=== PATIENT | male | born 1945 | race Caucasian/White ===

== ENCOUNTER → 2018-07-06 | Day surgery (SDC) | payer MEDICARE ==
[2018-06-29 14:36] VITALS: BMI 27.6
[~2018-07-06] MED LIST: ASPIRIN 325 MG TAB PO ONE; HYDROCHLOROTHIAZIDE 12.5 MG CAP PO SCH; IOPAMIDOL-250 100ML BTL INTRAARTER ONE; LIDOCAINE 1% INJ 10MG/ML (20 ML MDV) SQ ONE; LISINOPRIL 20 MG TAB PO STA; MIDAZOLAM 2 MG/2 ML VIAL IVP ONE; SODIUM CHLORIDE 0.9% 1,000 ML IV ONE; SODIUM CHLORIDE 0.9% 1,000 ML IV SCH; amLODIPine 5 MG TAB PO STA
[2018-07-06 06:57] LABS: Basophils # (A) 0.1 k/uL (0-0.2); Basophils % (A) 1 %; Eosinophils # (A) 0.3 k/uL (0-0.7); Eosinophils % (A) 3 %; HCT 43.6 % (39.0-53.0); HGB 14.1 gm/dL (13.0-17.5); Lymphocytes # (A) 1.5 k/uL (1.0-4.8); Lymphocytes % (A) 19 %; MCH 29.8 pg (25.0-35.0); MCHC 32.4 g/dL (31.0-37.0); Mean Platelet Volume 9.4; Monocytes # (A) 0.7 k/uL (0-1.0); Monocytes % (A) 8 %; Neutrophils # (A) 5.4 k/uL (1.3-7.7); Neutrophils % (A) 67 %; Platelet Count 188 k/uL (150-450); RBC 4.73 m/uL (4.30-5.90)
[2018-07-06 07:08] LABS: Glucose,Whole Blood 92 mg/dL (75-99)
[2018-07-06 07:18] LABS: Calcium 9.8 mg/dL (8.4-10.2); Potassium 4.4 mmol/L (3.5-5.1)
[2018-07-06 07:21] VITALS: RESP 18; TEMP 97.9
--- NOTE | 2018-07-06 09:05 | LTR ---
DATE OF SERVICE: 07/06/2018 RE: Addison Reyes Dear Dr. Roach; Mr. Addison Reyes underwent an abdominal aortogram and bilateral lower extremity runoff and that revealed severe disease involving the left iliac artery and severe disease involving bilateral femoral arteries. He will be scheduled to undergo a TRAINING ENGINEER of the left iliac and bilateral femoral in the next few weeks. I want to thank you for allowing us to participate in his care and please do not hesitate to call if you have any question or concern. Sincerely, MD MARCO Gomez / ADENIKE: [id number] /
--- NOTE | 2018-07-06 09:23 | AN ---
ANGIOGRAPHY REPORT DATE OF SERVICE: 07/06/2018 PERFORMING PHYSICIAN: Elier Tanner MD. PROCEDURE PERFORMED: 1. An abdominal aortogram. 2. Bilateral lower extremity runoff. 3. Gradient measurement across the left iliac artery. INDICATION: This is a very pleasant 72-year-old gentleman with known history of peripheral arterial disease where he underwent in [place] a fem-fem bypass with what seems to be also bilateral femoral endarterectomy. Lately, he has been experiencing bilateral lower extremities intermittent claudication. The symptoms seem to be severe enough and interfering with his daily activities. He underwent an ankle brachial index and that came in to be 0.66 on the right and 0.68 on the left. Because of that and because of the symptomatic state, an abdominal aortogram and bilateral lower extremity runoff was recommended. APPROACH: Left common femoral artery. COMPLICATION: None. LEVEL OF SEDATION: Moderate with sedation length of 19 minutes. PROCEDURE DESCRIPTION: After obtaining an informed consent, the patient was brought to the cardiac laboratory geneticist. The left common femoral artery was cannulated using micropuncture technique, the micropuncture wire passed easily then I placed a 6-Kosovan sheath in the left common femoral artery history I placed a 4-Kosovan sheath in the left common femoral artery. After that, I did an abdominal aortogram and bilateral lower extremities runoff using 5- Kosovan pigtail catheter which was initially placed at the level of the renal arteries. then it was pulled into above the bifurcation of the aorta to right and left common iliac arteries. After that, I did perform a gradient measurement across the lesion in the left external iliac/left common iliac artery. The procedure was completed without any complication. SELECTIVE PERIPHERAL ANGIOGRAM: 1. The aorta seems to be calcified with mild to moderate diffuse disease distally. It bifurcates into right and left common iliac arteries. 2. Common iliac arteries: The right common iliac artery is occluded. The left common iliac artery appeared to be stented with intermediate to severe in-stent restenosis. I did a gradient measurement across that area and that came into be about 50 mm Hg. 3. External iliac arteries: The right and left external iliac arteries are patent. 4. Common femoral arteries: The right and left common femoral arteries seems to be patent with probably patch angioplasty was performed in the past. There was a fem- fem bypass, which seems to be functioning normally. 5. The SFA: The right and left SFA are diffusely diseased. Both SFA are diseased and appeared to have a tight lesion in the midportion about 90%. 6. Below the knee: There are 3 vessels below the knee bilaterally. CONCLUSION: 1. 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 2. Patent fem-fem bypass. 3. Severe bilateral femoropopliteal disease with critical bilateral femoropopliteal disease. 4. Three-vessel runoff below the knee, bilaterally. POSTPROCEDURE MANAGEMENT: 1. I recommended proceeding with a SIGN MAKER to start with on the left SFA and at the same time proceeding with left iliac stenting. I would perform the SIGN MAKER of the left SFA from a medial approach and the left iliac stenting from an arm approach. 2. Subsequently. SIGN MAKER of the right SFA from a medial approach on separate session. MMODL / IJN: [id number] /
[2018-07-06 09:26] LABS: Glucose,Whole Blood 126 mg/dL (75-99)
--- NOTE | 2018-07-06 10:20 | IR ---
Fluoroscopy HISTORY: Leg pain, peripheral vascular occlusive disease 1.8 minutes fluoroscopy time supplied to the referring clinician. 164 intraoperative C-arm images do cument the procedure. See dictated report from cardiology.
[2018-07-06 13:32] VITALS: PULSE 70
[2018-07-06 14:03] VITALS: BP 124/62
== END ==
LOC: CATHCVL 05:45
PROVIDERS: ATTEND Internal Medicine Interventional Cardiology
DX: I70.713 Atherosclerosis of other type of bypass graft(s) of the extremities with intermittent claudication, bilateral legs (principal); T82.856A Stenosis of peripheral vascular stent, initial encounter; I10 Essential (primary) hypertension; E78.5 Hyperlipidemia, unspecified; E11.9 Type 2 diabetes mellitus without complications; Z87.891 Personal history of nicotine dependence; Z79.84 Long term (current) use of oral hypoglycemic drugs; Z79.02 Long term (current) use of antithrombotics/antiplatelets; Z79.899 Other long term (current) drug therapy
CPT/HCPCS: 36200; 75625; 75716; 80048; 85025; C1769 ×4; C1894; J2250; J2001; Q9966

== ENCOUNTER 2018-08-22 06:59 | Day surgery (SDC) | payer MEDICARE ==
[2018-08-17 13:27] VITALS: BMI 27.9
[2018-08-22] MEDS ORDERED: ASPIRIN 81 MG ONE (07:50)
[2018-08-22] MEDS ORDERED: SODIUM CHLORIDE 0.9% 1,000 ML IV ONE (08:04)
[2018-08-22 08:13] LABS: Glucose,Whole Blood 96 mg/dL (75-99)
[2018-08-22 08:37] LABS: HCT 43.4 % (39.0-53.0); HGB 14.8 gm/dL (13.0-17.5); MCH 30.8 pg (25.0-35.0); MCV 90.5 fL (80.0-100.0); Mean Platelet Volume 8.7; Platelet Count 180 k/uL (150-450); RBC 4.79 m/uL (4.30-5.90); RDW 13.5 % (11.5-15.5); WBC 6.7 k/uL (3.8-10.6)
[2018-08-22 08:48] LABS: Albumin 4.3 g/dL (3.5-5.0); Calcium 10.1 mg/dL (8.4-10.2); Potassium 4.6 mmol/L (3.5-5.1); Total Bilirubin 0.7 mg/dL (0.2-1.3); Total Protein 7.4 g/dL (6.3-8.2)
[2018-08-22] MEDS ORDERED: MIDAZOLAM 2 MG/2 ML VIAL IV ONE ×2 (09:48→10:40)
[2018-08-22] MEDS ORDERED: LIDOCAINE 1% INJ 10MG/ML (20 ML MDV) SQ ONE (10:00)
[2018-08-22] MEDS ORDERED: HEPARIN SODIUM 1,000 UN/ML (10ML VL) IV ONE (10:06)
[2018-08-22] MEDS ORDERED: fentaNYL (PF) 50 MCG/ML 2 ML AMP IV ONE (10:41)
[2018-08-22] MEDS ORDERED: niCARdipine Syringe (1,000 mcg/10 mL) INTRAARTER ONE (10:50)
[2018-08-22] MEDS ORDERED: NITROGLYCERIN 1000MCG/10ML SYRINGE INTRAARTER ONE (10:50)
[2018-08-22] MEDS ORDERED: SODIUM CHLORIDE 0.9% 1,000 ML IV SCH (11:45)
[2018-08-22] MEDS ORDERED: INSULIN LISPRO (For Pump) 100 UNIT/ML VIAL SQ-PUMP SCH (11:45)
[2018-08-22] MEDS ORDERED: IOPAMIDOL-250 100ML BTL INTRAARTER ONE (11:45)
[2018-08-22] MEDS ORDERED: CLOPIDOGREL 75 MG TAB PO ONE (11:50)
--- NOTE | 2018-08-22 12:02 | LTR ---
August 22, 2019 Re: Addison Fariasble Dear Dr. Roach: Mr. Addison Reyes underwent successful balloon angioplasty of the left common iliac artery with good angiographic results and without any complication. I want to thank you for allowing me to participate in his care and please do not hesitate to call if you have any question or any concern. Sincerely, MD MARCO Gomez / JOSE MARIAN: [id number] /
--- NOTE | 2018-08-22 12:17 | AN ---
ANGIOGRAPHY REPORT PERCUTANEOUS PERIPHERAL INTERVENTION: DATE OF SERVICE: August 22, 2018 PERFORMING PHYSICIAN: Elier Tanner MD, mule developer. PROCEDURE PERFORMED: 1. Selective left dpvcp-ych-glnj angiogram. 2. Selective left popliteal/SFA angiogram. 3. Selective left common iliac artery angiogram. 4. Gradient measurement across the left common iliac artery. 5. Atherectomy of the left SFA using the TurboHawk device. 6. Balloon angioplasty of the left SFA using 5 mm x 40 mm balloon. 7. Successful stenting of the left common iliac artery using Omnilink used using Omnilink balloon expandable stent which was 8 x 59 and 8 x 19 mm stents with good angiographic results. INDICATION: This is a pleasant 72-year-old gentleman who has known history of peripheral arterial disease and known to fem-fem bypass. He was experiencing bilateral lower extremities intermittent claudication and underwent a peripheral angiogram and that revealed severe disease involving the left common iliac artery with severe disease involving the left SFA. He was brought today to undergo an angioplasty of the left leg. APPROACH: Right brachial artery. COMPLICATION: None. LEVEL OF SEDATION: Moderate with sedation length of 96 minutes. PROCEDURE DESCRIPTION: After obtaining an informed consent, the patient was brought to cardiac clinical lab assistant. The right brachial artery was cannulated using micropuncture technique and a micropuncture wire passed easily then I placed an 11 cm 6-Tajik sheath in the right brachial artery. After that, anticoagulation was initiated using heparin and the patient was given 10,000 units of heparin IV. Subsequently, I did advance an 0.035 [place] Advantage wire to the left common iliac artery under fluoroscopy guidance. After that, I did exchange my 11 cm 6-Tajik sheath into 90 cm 6-Tajik sheath using 0.035 [place] Advantage wire. The tip of the sheath was advanced all the way to the proximal left SFA. After that, I did cross the left SFA and advanced the wire into the left popliteal using an 0.[address] wire. After that I did atherectomy using the TurboHawk device. I was unable to do atherectomy of the left popliteal, because the device did not reach all the way there. Subsequently I did balloon angioplasty using 5.0 x 40 mm balloon of the left popliteal and left SFA. The following angiogram showed good angiographic results of the left popliteal and inadequate results for the left SFA because of the recoiling. I did not do a stent because I was trying to bring the patient back to fix the right leg and I can fix the left leg to the fem-fem bypass as well. At that point, I decided to stop in term of fixing the left SFA and after that I did pull the sheath to the aorta. I did a selective left common iliac artery angiogram and I did after that gradient measurement across the left common iliac artery which came into be significant. After that, I did balloon angioplasty using 8 mm balloon before I deployed 2 balloon expandable stent. The first stent was 8 x 59 and the second stent was 8 x 19 mm. Both the stents were deployed under 14 atmospheres for about 1 minute. The following angiogram showed excellent angiographic results. The procedure was completed without any complication. After that, I did exchange my 90 cm sheath into 11 cm sheath using a 0.035 wire. The procedure was completed at that point without any complication. POSTPROCEDURE MANAGEMENT: 1. Dual anti-platelet therapy. 2. Risk factors modifications. 3. Follow up with the patient. MARCO / ADENIKE: [id number] /
[2018-08-22] MEDS ORDERED: HYDROmorphone 1 MG/ML 1 ML SYRINGE IVP PRN (13:25)
[2018-08-22] MEDS: GABAPENTIN 300 MG CAP PO SCH ×2 (15:19→19:53)
--- NOTE | 2018-08-22 15:59 | IR ---
Fluoroscopy HISTORY: Pain Left leg 23.7 minutes fluoroscopy time supplied to the referring clinician. 889 intraoperative C-arm images d ocument the procedure. See dictated report from cardiology.
[2018-08-22] MEDS ORDERED: ONDANSETRON 4 MG/2 ML VIAL IVP PRN (16:06)
[2018-08-22 16:36] LABS: Glucose,Whole Blood 133 mg/dL (75-99)
[2018-08-22 20:54] LABS: Glucose,Whole Blood 170 mg/dL (75-99)
[2018-08-22] MEDS ORDERED: ATORVASTATIN 40 MG TAB PO SCH (21:00)
[2018-08-22] MEDS ORDERED: LISINOPRIL-HCTZ 20-12.5 MG 1 EACH TAB PO SCH (21:00)
[2018-08-22] MEDS ORDERED: FINASTERIDE 5 MG TAB PO SCH (21:00)
[2018-08-23 06:43] LABS: Glucose,Whole Blood 142 mg/dL (75-99)
[2018-08-23 08:23] VITALS: BP 142/67; PULSE 79; RESP 18; TEMP 97.9
[2018-08-23] MEDS ORDERED: ASPIRIN 81 MG PO SCH (09:00)
[2018-08-23] MEDS ORDERED: CLOPIDOGREL 75 MG TAB PO SCH (09:00)
[2018-08-23] MEDS ORDERED: NON-FORMULARY DRUG (Empagliflozin [Jardiance] 25 MG) PO SCH (09:00)
[2018-08-23] MEDS ORDERED: amLODIPine 5 MG TAB PO SCH (09:00)
== END 2018-08-23 08:24 | disposition home or self-care (01) ==
LOC: CATHCVL 06:59 → 3SCARD 11:40 → CATHCVL 08-23 08:24
PROVIDERS: ATTEND Internal Medicine Interventional Cardiology
DX: I70.213 Atherosclerosis of native arteries of extremities with intermittent claudication, bilateral legs (principal); I10 Essential (primary) hypertension; E78.5 Hyperlipidemia, unspecified; Z87.891 Personal history of nicotine dependence; E11.9 Type 2 diabetes mellitus without complications; Z79.84 Long term (current) use of oral hypoglycemic drugs; Z79.02 Long term (current) use of antithrombotics/antiplatelets; Z79.899 Other long term (current) drug therapy
CPT/HCPCS: 37221; 37225; 85347; 80053; 82565; 85027; C1894 ×2; C1725 ×2; C1876; C1769 ×5; C1714; S0138; J2250; J2001; J3010; J1644; J1170; Q9966

== ENCOUNTER 2018-09-05 05:56 | Day surgery (SDC) | payer MEDICARE ==
--- NOTE | 2018-08-23 11:45 | DS ---
DISCHARGE SUMMARY DATE OF ADMISSION: August 22, 2018. DISCHARGE DATE: August 23, 2018 BRIEF HISTORY: This is a pleasant 72-year-old gentleman who was admitted to the hospital yesterday and underwent successful balloon angioplasty of the left SFA and left common iliac artery. The procedure was performed from the right brachial approach. He does have some bruises above the right brachial artery, but there was good pulse there. The patient is going to be discharged home on dual anti-platelet therapy and I will follow up with the patient in the office in a week. MMODL / IJN: [id number] /
[2018-08-31 16:31] VITALS: BMI 27.9
[2018-09-05] MEDS ORDERED: SODIUM CHLORIDE 0.9% 1,000 ML in EMPTY BAG 1 BAG IV ONE (06:23)
[2018-09-05] MEDS ORDERED: SODIUM CHLORIDE 0.9% 1,000 ML IV ONE (07:05)
[2018-09-05 07:13] LABS: Glucose,Whole Blood 88 mg/dL (75-99)
[2018-09-05] MEDS: MIDAZOLAM 2 MG/2 ML VIAL IV ONE ×2 (08:01→08:15)
[2018-09-05] MEDS ORDERED: LIDOCAINE 1% INJ 10MG/ML (20 ML MDV) SQ ONE (08:03)
[2018-09-05] MEDS: fentaNYL (PF) 50 MCG/ML 2 ML AMP IV ONE ×4 (08:21→09:46)
[2018-09-05] MEDS: HEPARIN SODIUM 1,000 UN/ML (10ML VL) IV ONE ×2 (08:23→09:03)
[2018-09-05] MEDS ORDERED: NITROGLYCERIN 1000MCG/10ML SYRINGE INTRAARTER ONE (09:32)
[2018-09-05] MEDS ORDERED: niCARdipine Syringe (1,000 mcg/10 mL) INTRAARTER ONE (09:32)
[2018-09-05] MEDS ORDERED: CLOPIDOGREL 75 MG TAB PO ONE (09:56)
[2018-09-05] MEDS ORDERED: IOPAMIDOL-250 100ML BTL INTRAARTER ONE (09:57)
[2018-09-05] MEDS ORDERED: INSULIN LISPRO (For Pump) 100 UNIT/ML VIAL SQ-PUMP SCH (10:15)
[2018-09-05] MEDS ORDERED: SODIUM CHLORIDE 0.9% 1,000 ML IV SCH (10:15)
[2018-09-05] MEDS ORDERED: ceFAZolin 1,000 MG in DEXTROSE/WATER 1 50ML.BAG IVPB STA (10:57)
--- NOTE | 2018-09-05 11:07 | LTR ---
September 05, 2018 Re: Addison Reyes Dear Joseph: Mr. Addison Reyes underwent successful stenting of the left iliac artery a few weeks ago and today he underwent successful balloon angioplasty of the right femoral artery. Both procedures went well with good angiographic results by the end and without any complication. Thank you again for allowing us with his care and please do not hesitate to call if you have any question or concern. Sincerely, MD MARCO Gomez / ADENIKE: [id number] /
--- NOTE | 2018-09-05 11:09 | AN ---
ANGIOGRAPHY REPORT DATE OF SERVICE: 09/05/2018. PERFORMING PHYSICIAN: Elier Tanner MD PROCEDURE PERFORMED: 1. Selective right smwvk-mgn-flos angiogram. 2. Selective right popliteal/SFA angiogram. 3. Selective fem-fem angiogram. 4. Atherectomy of the right SFA using the orbital atherectomy device from [employer]. 5. Successful balloon angioplasty of the right popliteal using 6 x 120 mm drug-coated balloon with good angiographic results and reduction of stenosis from 99% to 0%. 6. Successful stenting of the right SFA using the Zilver PTX drug-coated stent with good angiographic results as well. INDICATION: This is a pleasant 72-year-old gentleman with known history of peripheral arterial disease with a known fem-fem bypass. He was experiencing bilateral lower extremities intermittent claudication. He did undergo a peripheral angiogram and that showed severe disease involving the left iliac along with severe bilateral SFA disease. He underwent successful stenting of the left iliac with good angiographic results and was brought today to undergo intervention of the right SFA from a fem-fem bypass access. APPROACH: The fem-fem bypass. COMPLICATION: None. LEVEL OF SEDATION: Moderate with sedation length of 109 minutes. PROCEDURE DESCRIPTION: After obtaining an informed consent, the patient was brought to the cardiac slab inspector. The fem-fem bypass was cannulated using micropuncture technique under ultrasound guidance, the micropuncture wire passed easily, then I placed a 6-Egyptian sheath 11 cm in the fem-fem bypass and that sheath was directed toward the right side. After that, I did wire the right SFA using 0.035 [place] Advantage wire, where the wire was advanced all the way to the right popliteal. Subsequently, I did exchange my 11 cm 6-Egyptian sheath into 50 cm 6-Egyptian Raabe sheath using the 0.035 [place] Advantage wire and the tip of the sheath was positioned in the proximal right SFA. After that, I did selective right nuyey-esd-vktp angiogram which showed 3-vessel runoff below the knee as well as selective right popliteal and SFA angiogram which I found the severe disease involving the right popliteal and right SFA which was extremely calcified. After that, I did exchange my 0.035 [place] Advantage wire into 0.014 ViperWire preparing for orbital atherectomy. After that I did atherectomy of the right popliteal and right SFA using the orbital atherectomy device from [employer]. Then I did balloon angioplasty using 5 mm x 200 mm balloon where I ballooned the whole right popliteal and right SFA. Then I did balloon angioplasty of the right popliteal using 6 x 120 mm drug-coated balloon which was intact balloon where the balloon was positioned under fluoroscopy guidance and deployed under 8 atmospheres for 3 minutes with the following angiogram showing excellent angiographic results with reduction of stenosis from 99% to 0. For the right SFA, I did have an area of dissection in the proximal and mid and because of that, I decided to stent the whole segment. I did deploy in the mid SFA two Zilver drug-coated stents. The first one was 6 x 140 and the second one which was distal to that one was 6 x 80 mm. Then in the proximal right SFA, I did deploy 7 x 100 drug-coated stent again, which was Zilver PTX. After that, I did post dilate the 3 stents using 6 mm balloon. The following angiogram showed excellent angiographic results and no complication. After that, I did exchange my long sheath into 11 cm 6-Egyptian Brite Tip sheath over 0.035 [place] Advantage wire. The procedure was completed without any complication. POSTPROCEDURE MANAGEMENT: 1. Dual anti-platelet therapy. 2. Risk factor modifications. 3. INSURANCE CASE MANAGER of the left SFA if the patient continues to be symptomatic on the left side. MMODL / IJN: [id number] /
[2018-09-05] MEDS: HYDROmorphone 1 MG/ML 1 ML SYRINGE IVP PRN ×2 (12:24→15:55)
[2018-09-05 12:33] LABS: Glucose,Whole Blood 111 mg/dL (75-99)
[2018-09-05] MEDS ORDERED: hydrALAZINE HCL 20 MG/ML 1 ML VIAL IVP STA (12:38)
[2018-09-05] MEDS ORDERED: hydrALAZINE HCL 20 MG/ML 1 ML VIAL ONE (12:39)
[2018-09-05 15:08] LABS: Glucose,Whole Blood 117 mg/dL (75-99)
[2018-09-05] MEDS ORDERED: ONDANSETRON 4 MG/2 ML VIAL IVP PRN (15:58)
[2018-09-05] MEDS: GABAPENTIN 300 MG CAP PO SCH ×2 (17:29→20:38)
[2018-09-05] MEDS: LISINOPRIL 20 MG TAB PO SCH (20:38)
[2018-09-05] MEDS: FINASTERIDE 5 MG TAB PO SCH ×2 (20:38→20:41)
[2018-09-05] MEDS: HYDROCHLOROTHIAZIDE 12.5 MG CAP PO SCH (20:38)
[2018-09-05 20:42] LABS: Glucose,Whole Blood 272 mg/dL (75-99)
[2018-09-05] MEDS ORDERED: ATORVASTATIN 40 MG TAB PO SCH (21:00)
[2018-09-05] MEDS ORDERED: INSULIN PUMP BASAL RATES 1 EACH MISC MISCELLANE PRN (23:53)
[2018-09-05] MEDS ORDERED: INSULIN ASPART 100 UNIT/ML 1 ML 10 ML VIAL SQ PRN (23:53)
[2018-09-05] MEDS ORDERED: INSPUCOR MISCELLANE PRN (23:53)
[2018-09-06 00:07] LABS: Glucose,Whole Blood 245 mg/dL (75-99)
[2018-09-06 02:08] LABS: Glucose,Whole Blood 119 mg/dL (75-99)
[2018-09-06 05:40] LABS: Glucose,Whole Blood 204 mg/dL (75-99)
[2018-09-06 06:59] LABS: Basophils % (A) 0 %; Eosinophils # (A) 0.1 k/uL (0-0.7); Eosinophils % (A) 1 %; HGB 13.1 gm/dL (13.0-17.5); Lymphocytes % (A) 11 %; MCH 30.8 pg (25.0-35.0); MCHC 33.7 g/dL (31.0-37.0); MCV 91.3 fL (80.0-100.0); Mean Platelet Volume 7.8; Monocytes # (A) 0.8 k/uL (0-1.0); Monocytes % (A) 9 %; Neutrophils # (A) 7.1 k/uL (1.3-7.7); Neutrophils % (A) 77 %; Platelet Count 187 k/uL (150-450); RBC 4.28 m/uL (4.30-5.90); RDW 13.4 % (11.5-15.5); WBC 9.3 k/uL (3.8-10.6)
[2018-09-06 07:09] LABS: Calcium 9.3 mg/dL (8.4-10.2); Potassium 5.2 mmol/L (3.5-5.1)
[2018-09-06] MEDS ORDERED: INSULIN PUMP MEAL BOLUS 1 UNIT MISC MISCELLANE SCH (07:30)
[2018-09-06 07:57] VITALS: BP 97/48; PULSE 86; RESP 16; TEMP 98.2
[2018-09-06] MEDS: GABAPENTIN 300 MG CAP PO SCH (08:32)
[2018-09-06] MEDS: HYDROCHLOROTHIAZIDE 12.5 MG CAP PO SCH (08:34)
[2018-09-06] MEDS: LISINOPRIL 20 MG TAB PO SCH (08:34)
--- NOTE | 2018-09-06 08:38 | DS ---
DISCHARGE SUMMARY ADMISSION DATE: 09/05/2018 DISCHARGE DATE: 09/06/2018 BRIEF HISTORY: This is a pleasant 72-year-old gentleman who was admitted to the hospital and underwent successful balloon angioplasty of the right SFA from a fem-fem bypass approach. The patient is going today to be discharged home on dual anti-platelet therapy and I will follow up with him in a week in the office. The access site is soft and nontender and without any bruises. MMODL / JOSE MARIAN: [id number] /
[2018-09-06] MEDS ORDERED: Empagliflozin [Jardiance] 25 MG PO SCH (09:00)
[2018-09-06] MEDS ORDERED: amLODIPine 5 MG TAB PO SCH (09:00)
[2018-09-06] MEDS ORDERED: CLOPIDOGREL 75 MG TAB PO SCH (09:00)
[2018-09-06] MEDS ORDERED: ASPIRIN 81 MG PO SCH (09:00)
--- NOTE | 2018-09-06 10:25 | IR ---
Fluoroscopy HISTORY: Peripheral vascular occlusive disease 28.7 minutes fluoroscopy time supplied to the referring clinician. 949 intraoperative C-arm images d ocument the procedure. See dictated report from cardiology.
[2018-09-06 13:51] LABS: Hemoglobin A1C 7.8 % (4.0-6.0)
== END 2018-09-06 08:42 | disposition home or self-care (01) ==
LOC: CATHCVL 05:56 → 3SCARD 12:19 → CATHCVL 09-06 08:42
PROVIDERS: ATTEND Internal Medicine Interventional Cardiology
DX: I70.213 Atherosclerosis of native arteries of extremities with intermittent claudication, bilateral legs (principal); E13.51 Other specified diabetes mellitus with diabetic peripheral angiopathy without gangrene; Z79.84 Long term (current) use of oral hypoglycemic drugs; I10 Essential (primary) hypertension; E78.5 Hyperlipidemia, unspecified; Z95.820 Peripheral vascular angioplasty status with implants and grafts; Z87.891 Personal history of nicotine dependence; Z79.02 Long term (current) use of antithrombotics/antiplatelets; Z79.899 Other long term (current) drug therapy
CPT/HCPCS: 37227; 85347; 80048; 85025; 83036; C1894 ×3; C1714; C1769 ×5; C1725 ×2; C2623; C1874 ×3; J2250; J0360; J2405; J2001; J3010; J1644; J1170; J0690; Q9966

== ENCOUNTER 2018-11-05 06:03 | Day surgery (SDC) | payer MEDICARE, BC ==
[2018-11-01 12:24] VITALS: BMI 26.1
[~2018-11-05 06:03] MED LIST changes: +ALPRAZolam 0.25 MG TAB PO PRN; -ASPIRIN 325 MG TAB PO ONE; +ASPIRIN 325 MG TAB PO STA; -HYDROCHLOROTHIAZIDE 12.5 MG CAP PO SCH; -IOPAMIDOL-250 100ML BTL INTRAARTER ONE; -LIDOCAINE 1% INJ 10MG/ML (20 ML MDV) SQ ONE; -LISINOPRIL 20 MG TAB PO STA; -MIDAZOLAM 2 MG/2 ML VIAL IVP ONE; -SODIUM CHLORIDE 0.9% 1,000 ML IV ONE; -SODIUM CHLORIDE 0.9% 1,000 ML IV SCH; +SODIUM CHLORIDE 0.9% 1,000 ML in EMPTY BAG 1 BAG IV ONE; -amLODIPine 5 MG TAB PO STA
[2018-11-05 07:03] VITALS: PULSE 76; RESP 18; TEMP 97.9
[2018-11-05 07:05] LABS: Glucose,Whole Blood 113 mg/dL (75-99)
[2018-11-05] MEDS ORDERED: MIDAZOLAM 2 MG/2 ML VIAL IV ONE ×2 (07:29→07:48)
[2018-11-05] MEDS ORDERED: SODIUM CHLORIDE 0.9% 1,000 ML IV ONE (07:29)
[2018-11-05] MEDS ORDERED: LIDOCAINE 1% INJ 10MG/ML (20 ML MDV) SQ ONE (07:34)
[2018-11-05] MEDS: VERAPAMIL SYRINGE (5 MG/10 ML) INTRAARTER ONE ×2 (07:40→07:58)
[2018-11-05] MEDS: HYDROmorphone 2 MG/ML 1 ML SYRINGE IV ONE ×2 (07:52→07:57)
[2018-11-05] MEDS ORDERED: IOPAMIDOL-250 100ML BTL INTRAARTER ONE ×2 (07:58→07:59)
[2018-11-05] MEDS ORDERED: SODIUM CHLORIDE 0.9% 1,000 ML IV SCH (08:00)
--- NOTE | 2018-11-05 08:21 | AN ---
ANGIOGRAPHY REPORT PERIPHERAL ANGIOGRAM: DATE OF SERVICE: 11/05/2018 PERFORMING PHYSICIAN: Elier Tanner MD, Pumper Hand. PROCEDURE PERFORMED: 1. An abdominal aortogram. 2. Bilateral lower extremities runoff. INDICATION: This is a pleasant 73-year-old gentleman with known history of peripheral arterial disease who underwent in the past alyx-qa-gudzm fem-fem bypass and recently he underwent stenting of the left iliac artery as well as balloon angioplasty and stenting of the right SFA. He felt better after the last intervention, but started experiencing right leg intermittent claudication, seems to be severe enough. I did perform a Doppler in the office and that revealed an occluded right SFA. Because of that, he was brought today to undergo an abdominal aortogram and bilateral lower extremities runoff. APPROACH: Right radial artery. COMPLICATION: None. LEVEL OF SEDATION: Moderate with sedation length of 27 minutes. PROCEDURE DESCRIPTION: After obtaining an informed consent, the patient was brought to the cardiac dentures lab technician. The right radial artery was cannulated using micropuncture technique, the micropuncture wire passed easily, then I placed a 5-Setswana sheath in the right radial artery. Subsequently, I gave the patient 2 mg of verapamil IA. By the end of the procedure, he was given 8000 units of heparin IV. I did an abdominal aortogram and bilateral lower extremities runoff using a 4-Setswana pigtail catheter which was initially placed at the level of the renal arteries and it was advanced into the bifurcation of the aorta to right and left common iliac arteries. The procedure was completed without any complication. SELECTIVE PERIPHERAL ANGIOGRAM: 1. The aorta appeared to have mild disease only. 2. COMMON ILIAC ARTERIES: The right common iliac artery is occluded and the left common iliac artery is stented and the stent is patent. 3. EXTERNAL ILIAC ARTERIES: The right external iliac artery is occluded, left external iliac artery is patent. 4. COMMON FEMORAL ARTERY: The right common femoral artery and left common femoral artery appeared to be normal. There is a fem-fem bypass was identified. 5. PROFUNDA: The right and left profunda are patent. 6. SFA: The right SFA appeared to be occluded in the short segment in the distal portion, which seems to be in-stent occlusion. The left SFA is diffusely diseased up to about 70% to 80%. 7. POPLITEAL: The right and left popliteal appeared to have mild to moderate diffuse disease. 8. BELOW THE KNEE: There are 3-vessel runoff below the knee bilaterally. CONCLUSION: 1. Patent stent in the left common iliac artery. 2. In-stent occlusion of the right SFA on short segment. 3. Diffuse disease involving the left SFA up to about 70%. POSTPROCEDURE MANAGEMENT: 1. Maximize medical treatment at this point of time. 2. HR CONSULTANT of the right SFA to be done in the next few days. MMODL / IJN: [id number] /
[2018-11-05 08:31] LABS: Glucose,Whole Blood 113 mg/dL (75-99)
--- NOTE | 2018-11-05 08:35 | IR ---
EXAMINATION TYPE: IR angio abdominal w runoff DATE OF EXAM: 11/05/2018 CLINICAL HISTORY: Right leg pain. TECHNIQUE: Fluoroscopy. COMPARISON: None. FINDINGS: Fluoroscopic guidance was provided during abdominal angiogram with runoff procedure perfor med by Dr. Tanner. A total of 3.9 minutes of fluoroscopic time was utilized during the procedure and 0 spot images are saved to PACS system at time of dictation. IMPRESSION: As Above.
[2018-11-05] MEDS ORDERED: amLODIPine 5 MG TAB PO STA (08:46)
[2018-11-05] MEDS ORDERED: ONDANSETRON 4 MG/2 ML VIAL IVP STA (10:56)
[2018-11-05 14:50] VITALS: BP 156/70
== END 2018-11-05 13:15 | disposition home or self-care (01) ==
LOC: CATHCVL 06:03
PROVIDERS: ATTEND Internal Medicine Interventional Cardiology
DX: I70.213 Atherosclerosis of native arteries of extremities with intermittent claudication, bilateral legs (principal); E11.51 Type 2 diabetes mellitus with diabetic peripheral angiopathy without gangrene; T82.856A Stenosis of peripheral vascular stent, initial encounter; I10 Essential (primary) hypertension; E78.5 Hyperlipidemia, unspecified; F17.200 Nicotine dependence, unspecified, uncomplicated; Z95.820 Peripheral vascular angioplasty status with implants and grafts; Z79.84 Long term (current) use of oral hypoglycemic drugs; Z79.02 Long term (current) use of antithrombotics/antiplatelets; Z79.899 Other long term (current) drug therapy
CPT/HCPCS: 36200; 75625; 75716; C1769 ×5; C1894 ×2; J2250; J1170; J2405; J2001; J1644; Q9966

== ENCOUNTER 2018-11-09 05:59 | Day surgery (SDC) | payer MEDICARE, BC ==
[2018-11-09] MEDS ORDERED: SODIUM CHLORIDE 0.9% 1,000 ML in EMPTY BAG 1 BAG IV ONE (06:27)
[2018-11-09] MEDS ORDERED: ALPRAZolam 0.25 MG TAB PO PRN (06:27)
[2018-11-09] MEDS ORDERED: ASPIRIN 325 MG TAB PO ONE (07:00)
[2018-11-09 07:07] LABS: Glucose,Whole Blood 175 mg/dL (75-99)
[2018-11-09 07:10] LABS: Basophils # (A) 0.1 k/uL (0-0.2); Basophils % (A) 1 %; Eosinophils # (A) 0.2 k/uL (0-0.7); Eosinophils % (A) 3 %; HCT 44.5 % (39.0-53.0); HGB 14.3 gm/dL (13.0-17.5); Lymphocytes # (A) 1.4 k/uL (1.0-4.8); Lymphocytes % (A) 19 %; MCHC 32.2 g/dL (31.0-37.0); Mean Platelet Volume 8.7; Monocytes # (A) 0.6 k/uL (0-1.0); Monocytes % (A) 8 %; Neutrophils # (A) 4.8 k/uL (1.3-7.7); Neutrophils % (A) 67 %; Platelet Count 188 k/uL (150-450); RBC 4.94 m/uL (4.30-5.90); RDW 14.5 % (11.5-15.5); WBC 7.1 k/uL (3.8-10.6)
[2018-11-09 07:24] LABS: Calcium 9.7 mg/dL (8.4-10.2)
[2018-11-09 07:32] LABS: Potassium 5.8 mmol/L (3.5-5.1)
[2018-11-09] MEDS ORDERED: MIDAZOLAM 2 MG/2 ML VIAL IVP ONE (07:47)
[2018-11-09] MEDS ORDERED: LIDOCAINE 1% INJ 10MG/ML (20 ML MDV) SQ ONE ×2 (08:04→08:05)
[2018-11-09] MEDS: MIDAZOLAM 2 MG/2 ML VIAL IVP ONE ×2 (08:04→08:35)
[2018-11-09] MEDS: fentaNYL (PF) 50 MCG/ML 2 ML AMP IV ONE ×2 (08:04→08:58)
[2018-11-09] MEDS ORDERED: HEPARIN SODIUM 1,000 UN/ML (10ML VL) IV ONE ×2 (08:11→09:46)
[2018-11-09] MEDS ORDERED: CLOPIDOGREL 75 MG TAB PO ONE (09:52)
[2018-11-09] MEDS ORDERED: niCARdipine Syringe (1,000 mcg/10 mL) INTRAARTER ONE (09:56)
[2018-11-09] MEDS ORDERED: NITROGLYCERIN 1000MCG/10ML SYRINGE INTRAARTER ONE (09:56)
[2018-11-09] MEDS ORDERED: IOPAMIDOL-250 100ML BTL INTRAARTER ONE (10:10)
--- NOTE | 2018-11-09 11:10 | LTR ---
DATE OF SERVICE: 11/09/2018 RE: Addison Reyes Dear Dr. Roach; Mr. Addison Reyes underwent successful balloon angioplasty of the right femoral artery with good angiographic results and without any complication. I want to thank you for allowing me to participate in his care and please do not hesitate to call if you have any question or concern. Sincerely, Elier Tanner MD MMOSMIN / JOSE MARIAN: [id number] /
--- NOTE | 2018-11-09 12:07 | IR ---
EXAMINATION TYPE: IR stent intravas non coronary DATE OF EXAM: 11/09/2018 CLINICAL HISTORY: Peripheral vascular disease, arterial stenosis per order. TECHNIQUE: Fluoroscopy. COMPARISON: None. FINDINGS: Fluoroscopic guidance was provided during lower extremity angiogram with angioplasty proce dure performed by Dr. Tanner. A total of 30.8 minutes of fluoroscopic time was utilized during the pro cedure and 17 cine runs were acquired. Please refer to procedure note for further details as I was no t present nor performed procedure. IMPRESSION: As Above.
[2018-11-09] MEDS: HYDROmorphone 1 MG/ML 1 ML SYRINGE IVP PRN (13:33)
--- NOTE | 2018-11-09 17:04 | AN ---
ANGIOGRAPHY REPORT PERFORMING PHYSICIAN: Elier Tanner MD, public relations player. PROCEDURE PERFORMED: 1. Selective right xhoxa-wuk-wxra angiogram. 2. Selective right popliteal/SFA angiogram. 3. 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 4. Intravascular ultrasound IVUS of the right SFA and right popliteal. 5. An atherectomy of the right SFA and right popliteal using the orbital atherectomy device from [employer]. 6. Successful balloon angioplasty of the right popliteal using 5.0 X 18 mm drug-coated balloon with good angiographic results. 7. Successful stenting of the right SFA using a 7 x 80 mm Zilver PTX drug-coated stent with an excellent angiographic results. INDICATION: This is a pleasant 73-year-old gentleman with a history of peripheral arterial disease with prior stenting of the right iliac artery as well as known fem-fem bypass as well as balloon angioplasty of the left SFA who underwent recently an atherectomy and balloon angioplasty and stenting of the right SFA started experiencing right leg intermittent claudication again. He underwent an arterial duplex study in the office and that showed an occluded right SFA. Subsequently, he underwent an angiogram and that confirmed the occlusion of the right SFA, which seems to be in-stent occlusion. He was brought today to undergo a SCRAP WHEELER of the right SFA. APPROACH: Through the fem-fem bypass. COMPLICATION: None. LEVEL OF SEDATION: Moderate with sedation length of 2 hours and 3 minutes. PROCEDURE DESCRIPTION: After obtaining an informed consent, the patient was brought to the cardiac cath lab radiological technologist. The fem-fem bypass was cannulated using micropuncture technique under ultrasound guidance, the micropuncture wire passed easily. Then I placed a 55 cm 6-Taiwanese sheath in the fem-fem bypass and the sheath was directed to the right SFA. Subsequently, I started anticoagulation using heparin, where the patient initially given 8000 units of heparin at the beginning of the procedure and 3000 units throughout the procedure with continuous ACT monitoring throughout the procedure. After that, I did selective right nagfm-qtc-isoi angiogram, selective right popliteal and right SFA angiogram. The selective right dulvu-odp-like angiogram showed 3 vessel runoff below the knee. The selective right popliteal and right SFA showed severe disease involving the right popliteal and occluded right SFA which is in-stent occlusion. After that I was able to cross the chronic total occlusion of the right SFA using an 0.[address] wire, but I think I was behind the stent and because of that, I left the wire in place and I crossed the PAINTER SET again using .035 stiff Glidewire. The wire was advanced to the uvbdo-bji-ihlf on the right side. After that, I did exchange my .035 stiff Glidewire into 0.014 ViperWire using .035 CXI catheter. I did atherectomy of the right SFA and right popliteal using the orbital atherectomy device from [facility]. Subsequently, I did balloon angioplasty using 4-0 mm balloon and then 5-0 mm balloon. After that for the right popliteal, I did do balloon angioplasty using drug coated balloon which x 18 mm balloon which was inflated under 8 atmospheres for 3 minutes. For the right SFA, I decided to stent the area because it was a hazy and with possible clot there, so I did deploy a 7 x 18 mm Zilver PTX drug-coated stent where the stent was positioned under fluoroscopy guidance and deployed under fluoroscopy guidance. I post dilated the stent using 6 mm balloon. The final angiogram showed good result with good flow. There was an area at the right popliteal just above the knee seems to be with a plaque burden about 50%. I decided to leave that alone and do balloon angioplasty and stenting on it if we have to down the line. After that, I did exchange my long sheath into short sheath using a 035 stiff Glidewire. The procedure was completed without any complication. POSTPROCEDURE MANAGEMENT: 1. Dual anti-platelet therapy. 2. Risk factor modifications. 3. Doppler. 4. Follow up with the patient. MMODL / IJN: [id number] /
[2018-11-09 17:25] VITALS: BMI 27.5
[2018-11-09] MEDS: INSULIN LISPRO (For Pump) 100 UNIT/ML VIAL SQ-PUMP SCH (19:09)
[2018-11-09] MEDS: GABAPENTIN 300 MG CAP PO SCH ×2 (19:22→22:17)
[2018-11-09 20:59] LABS: Glucose,Whole Blood 182 mg/dL (75-99)
[2018-11-09] MEDS ORDERED: FINASTERIDE 5 MG TAB PO SCH (21:00)
[2018-11-09] MEDS ORDERED: ATORVASTATIN 40 MG TAB PO SCH (21:00)
[2018-11-09] MEDS: HYDROCHLOROTHIAZIDE 12.5 MG CAP PO SCH (22:01)
[2018-11-09] MEDS: LISINOPRIL 20 MG TAB PO SCH (22:01)
[2018-11-10] MEDS: HYDROmorphone 1 MG/ML 1 ML SYRINGE IVP PRN (02:29)
[2018-11-10 06:35] LABS: Glucose,Whole Blood 143 mg/dL (75-99)
[2018-11-10 07:44] VITALS: BP 102/57; PULSE 73; RESP 16; TEMP 97.5
[2018-11-10] MEDS ORDERED: ASPIRIN 81 MG PO SCH (09:00)
[2018-11-10] MEDS ORDERED: Empagliflozin [Jardiance] PO SCH (09:00)
[2018-11-10] MEDS ORDERED: CLOPIDOGREL 75 MG TAB PO SCH (09:00)
[2018-11-10] MEDS ORDERED: amLODIPine 5 MG TAB PO SCH (09:00)
[2018-11-10] MEDS: LISINOPRIL 20 MG TAB PO SCH (09:14)
[2018-11-10] MEDS: INSULIN LISPRO (For Pump) 100 UNIT/ML VIAL SQ-PUMP SCH (09:14)
[2018-11-10] MEDS: GABAPENTIN 300 MG CAP PO SCH (09:14)
[2018-11-10] MEDS: HYDROCHLOROTHIAZIDE 12.5 MG CAP PO SCH (09:14)
--- NOTE | 2018-11-10 16:11 | DS ---
DISCHARGE SUMMARY DATE OF ADMISSION: 11/09/2018 DATE OF DISCHARGE: 11/10/2018 BRIEF HISTORY: This is a pleasant 73-year-old gentleman who was admitted to the hospital yesterday and underwent successful balloon angioplasty of the right SFA from the fem-fem approach. The patient is going to be discharged home today on dual anti-platelet therapy along with a statin, and I will follow up with the patient in a week in the office. MMOSMIN / JOSE MARIAN: [id number] /
== END 2018-11-10 09:34 | disposition home or self-care (01) ==
LOC: CATHCVL 05:59 → 3SCARD 16:09 → CATHCVL 11-10 09:34
PROVIDERS: ATTEND Internal Medicine Interventional Cardiology
DX: I70.213 Atherosclerosis of native arteries of extremities with intermittent claudication, bilateral legs (principal); T82.856A Stenosis of peripheral vascular stent, initial encounter; I70.92 Chronic total occlusion of artery of the extremities; Z95.820 Peripheral vascular angioplasty status with implants and grafts; I10 Essential (primary) hypertension; E78.5 Hyperlipidemia, unspecified; E11.8 Type 2 diabetes mellitus with unspecified complications; Z79.84 Long term (current) use of oral hypoglycemic drugs; Z79.02 Long term (current) use of antithrombotics/antiplatelets; Z79.899 Other long term (current) drug therapy
CPT/HCPCS: 37227; 37252; 80048; 85025; C1894 ×2; C1769 ×6; C1714; C1725 ×4; C1753; C2623; C1874; S0138; J2250; J2001; J3010; J1644; J1170 ×2; Q9966

== ENCOUNTER 2019-03-21 07:35 | Day surgery (SDC) | payer MEDICARE, BC ==
[~2019-03-21 07:35] MED LIST changes: +ALPRAZolam 0.5 MG TAB PO PRN; +ATORVASTATIN 80 MG TAB PO STA; +NITROGLYCERIN SL TABS 0.4 MG TAB SUBLINGUAL PRN
[2019-03-21 08:09] VITALS: TEMP 97.9
[2019-03-21 08:16] LABS: Glucose,Whole Blood 115 mg/dL (75-99)
[2019-03-21] MEDS: LIDOCAINE 1% INJ 10MG/ML (20 ML MDV) SQ ONE ×2 (10:04→10:11)
[2019-03-21] MEDS ORDERED: MIDAZOLAM (PF) 2 MG/2 ML VIAL IVP ONE (10:04)
[2019-03-21] MEDS: fentaNYL (PF) 50 MCG/ML 2 ML AMP IV ONE ×3 (10:10→10:41)
[2019-03-21] MEDS ORDERED: IOPAMIDOL-250 100ML BTL INTRAARTER ONE (10:24)
[2019-03-21] MEDS ORDERED: SODIUM CHLORIDE 0.9% 1,000 ML IV SCH (10:30)
[2019-03-21 11:03] VITALS: RESP 18
[2019-03-21 15:07] VITALS: BP 146/67; PULSE 72
--- NOTE | 2019-03-21 17:11 | LTR ---
DATE OF SERVICE: March 21, [address] Roach: Mr. Addison Reyes underwent today a peripheral angiogram because he was experiencing bilateral lower extremities intermittent claudication. The angiogram revealed critical right femoral disease and severe left femoral disease as well. He will be scheduled to undergo balloon angioplasty of both in 2 separate sessions. I want to thank you for allowing me to participate in his care and please do not hesitate to call if you have any question or concerns. Sincerely, MARCO / JOSE MARIAN: [id number] /
--- NOTE | 2019-03-21 20:52 | AN ---
ANGIOGRAPHY REPORT AORTOGRAM WITH RUNOFF: PERFORMING PHYSICIAN: Elier Tanner MD, welcome hostess. PROCEDURES PERFORMED: 1. Abdominal aortogram. 2. Bilateral lower extremity runoff. INDICATION: This is a 73-year-old gentleman with history of CAD with prior dzok-qz-jhqdw fem-fem bypass and known occluded right iliac artery as well as stenting of the left iliac artery as well as stenting of the right SFA. He was experiencing again symptoms of bilateral lower extremity intermittent claudication. Because of that, aortogram was advised. APPROACH: Left common femoral artery. COMPLICATIONS: None. LEVEL OF SEDATION: Moderate, with sedation length of 17 minutes. PROCEDURE DESCRIPTION: After obtaining informed consent, the patient was brought to the cardiac laborer wharf. The left common femoral artery was cannulated using micropuncture technique. The micropuncture wire passed easily. Then I placed a 5-Tunisian sheath in the left common femoral artery. After that I did an aortogram with runoff using 5-Tunisian pigtail catheter which was initially placed at the level of the renal arteries, then it was pulled into above the bifurcation of the aorta to right and left common iliac arteries. The procedure was completed without any complications. SELECTIVE PERIPHERAL ANGIOGRAM: 1. Aorta appeared to have mild disease only. 2. Common iliac arteries: The right common iliac artery is occluded. The left common iliac artery is stented, and the stent is patent. 3. Common femoral arteries: The right common femoral artery is occluded and getting blood from the fem-fem bypass. The left common femoral artery appeared to be normal. 4. SFAs. The right SFA is stented in a long segment with critical in-stent restenosis. The left SFA appeared to be severely diseased, up to about 70% to 80%. 5. Popliteals. The right popliteal appeared to be diseased in the range of 70% to 80%. The left popliteal appeared to be diseased in the range of 90%. 6. Below the knee: There is 3-vessel runoff below the knee bilaterally. CONCLUSION: 1. Patent stent in the left iliac artery. 2. Patent uton-bj-uzwja fem-fem bypass. 3. Critical right SFA disease and diffuse moderate to severe left SFA disease. 4. Severe bilateral popliteal disease. POST-PROCEDURE MANAGEMENT: The patient will be scheduled to undergo MONONITROTOLUENE OPERATOR of the bilateral SFA/popliteal on 2 separate sessions. MMODL / IJN: [id number] /
--- NOTE | 2019-03-27 10:59 | IR ---
Fluoroscopy HISTORY: Left leg pain 2 minutes fluoroscopy time supplied to the referring clinician, 103 intraoperative images, see dictat ed report from cardiology.
== END 2019-03-21 15:55 | disposition home or self-care (01) ==
LOC: CATHCVL 07:35
PROVIDERS: ATTEND Internal Medicine Interventional Cardiology
DX: I70.213 Atherosclerosis of native arteries of extremities with intermittent claudication, bilateral legs (principal); T82.856A Stenosis of peripheral vascular stent, initial encounter; E11.51 Type 2 diabetes mellitus with diabetic peripheral angiopathy without gangrene; E78.5 Hyperlipidemia, unspecified; Z87.891 Personal history of nicotine dependence; Z79.84 Long term (current) use of oral hypoglycemic drugs; Z79.02 Long term (current) use of antithrombotics/antiplatelets; Z79.82 Long term (current) use of aspirin; Z79.899 Other long term (current) drug therapy
CPT/HCPCS: 36200; 75625; 75716; C1769 ×4; C1894; J2001; J3010; Q9966; J2250

== ENCOUNTER → 2019-04-23 | Outpatient (CLI) | payer MEDICARE, BC ==
--- NOTE | 2019-04-23 11:19 | CT ---
EXAMINATION TYPE: CT abdomen pelvis w con DATE OF EXAM: 04/23/2019 COMPARISON: None HISTORY: diverticulitis CT DLP: 1147.0 mGycm Automated exposure control for dose reduction was used. TECHNIQUE: Helical acquisition of images was performed from the lung bases through the pelvis. CONTRAST: Performed with Oral Contrast and with IV Contrast, patient injected with 100 mL of Isovue 300. FINDINGS: LUNG BASES: No significant abnormality is appreciated. LIVER/GB: Hepatic parenchyma is diffusely hypoattenuated in comparison to that of the spleen, most co mmonly seen in hepatic steatosis. This finding limits evaluation for hepatic masses. No gross evidenc e of hepatic mass is seen. No intrahepatic biliary ductal dilatation. Punctate calculi are seen withi n the gallbladder dependently. PANCREAS: Few punctate calcifications are seen within the pancreatic parenchyma indicative of chronic pancreatitis. No hepatic ductal dilatation or peripancreatic fat stranding is seen. Pancreatic paren chyma enhances homogeneously. SPLEEN: No significant abnormality is seen. ADRENALS: No significant abnormality is seen. KIDNEYS: Nonobstructing left lower pole 4 mm calculus and possible lower pole 1.1 cm exophytic renal cyst are present. No hydronephrosis is seen. Nonspecific bilateral perinephric fat stranding is evide nt. FREE AIR: No free air is visualized. ADENOPATHY: No greater than 1 cm short axis lymph node is seen in the abdomen or pelvis. REPRODUCTIVE ORGANS: Prostate gland is heterogenous and enlarged. URINARY BLADDER: No significant abnormality is seen. OSSEOUS STRUCTURES: Moderate multilevel degenerative disc disease of the spine. BOWEL: Sigmoid colon is redundant and there are multiple colonic diverticula without pericolonic fat stranding. Interior to the transverse colon there is a supraumbilical ventral hernia that is wide ne cked measuring 4.3 cm. Diastases recti is seen above the umbilicus and at the umbilicus with either s urgical suture or calcification just posterior to the rectus fascia at the level of the umbilicus. Gusman praumbilical left paracentral that filled ventral hernia has a neck measuring 2.0 cm. OTHER: Extensive atherosclerosis of the abdominal aorta and its branches with occlusion of the right common iliac artery. However there is a patent bifemoral bypass graft. The right femoral artery appea rs either occluded or near occluded and left femoral artery demonstrates only diminutive flow due to extensive atherosclerosis. IMPRESSION: 1. SIGMOID DIVERTICULOSIS WITHOUT CURRENT EVIDENCE OF ACUTE DIVERTICULITIS. 2. MILD DEGREE HEPATIC STEATOSIS AND NONOBSTRUCTING LEFT RENAL CALCULUS ARE INCIDENTALLY SEEN. 3. EXTENSIVE ATHEROSCLEROSIS OF THE ABDOMINAL AORTA AND ITS BRANCHES WITH PATENT FEMORAL-FEMORAL BYPA SS GRAFT, HOWEVER THE VISUALIZED RIGHT FEMORAL ARTERY DISTAL TO THIS APPEARS OCCLUDED AND ONLY DIMINU TIVE FLOW IS SEEN WITHIN THE LEFT FEMORAL ARTERY. 4. MULTIPLE WIDE NECKED VENTRAL ABDOMINAL HERNIAS. 5. HETEROGENOUS AND ENLARGED PROSTATE GLAND. 6. SEQUELA OF CHRONIC PANCREATITIS.
== END | disposition home or self-care (01) ==
LOC: RADCTMAIN 08:56
PROVIDERS: ATTEND Surgery Plastic and Reconstructive Surgery
DX: K57.30 Diverticulosis of large intestine without perforation or abscess without bleeding (principal); K76.0 Fatty (change of) liver, not elsewhere classified; I70.0 Atherosclerosis of aorta; N20.0 Calculus of kidney; K86.1 Other chronic pancreatitis; N40.0 Benign prostatic hyperplasia without lower urinary tract symptoms; K86.81 Exocrine pancreatic insufficiency; K57.32 Diverticulitis of large intestine without perforation or abscess without bleeding
CPT/HCPCS: 82565; 84520; 74177; 36415; Q9967

== ENCOUNTER 2019-07-10 06:28 | Emergency (ER) | payer MEDICARE, BC ==
[2019-07-10 06:33] VITALS: BP 156/63; PULSE 76; RESP 17; TEMP 98
--- NOTE | 2019-07-10 06:52 | ED ---
General Adult HPI - General Source: patient Mode of arrival: wheelchair Limitations: physical limitation <Keyonna Wright - Last Filed: 07/10/19 14:08> <LoganNoemi Danny - Last Filed: 07/11/19 12:21> - General Chief complaint: Back Pain/Injury Stated complaint: back/leg pain Time Seen by Provider: 07/10/19 06:34 - History of Present Illness Initial comments: 73-year-old male with history of peripheral vascular disease scheduled for stent placement on the right lower extremities by kids club attendant Dr. Mcfarland next month, diabetic with pump, HLD, peripheral neuropathy presenting to the ER today for cc of right leg pain x 2 days. Patient states that for the past two days he has had pain in the center of the buttock that radiates down to his toes. Patient states that the pain is sharp and burning and increases when he ambulates. Patient states that he feels this is sciatica as he struggled with the past. Patient states it does not feel similar to his typical claudication. Patient denies any back pain, falls, direct trauma, fevers, IVDU, CA, denies weakness of the extremity, loss of bowel bladder control, urinary retention, abdominal pain chest pain shortness of breath. Patient denies any coolness or pallor of the extremity. Patient states he is compliant with his clopidogrel and aspirin. When pain persisted today patient presented to the ER for evaluation. Of note patient did see a chiropractor yesterday who applied ice and tennis ball, he states this provided temporary relief--but it came back and this time worse. (Keyonna Wright) - Related Data Home Medications Medication Instructions Recorded Confirmed Aspirin [Adult Low Dose Aspirin EC] 81 mg PO DAILY 06/29/18 07/11/19 Atorvastatin [Lipitor] 40 mg PO HS 06/29/18 07/11/19 Clopidogrel [Plavix] 75 mg PO DAILY 06/29/18 07/11/19 Empagliflozin [Jardiance] 25 mg PO QAM 06/29/18 07/11/19 Finasteride [Proscar] 5 mg PO HS 06/29/18 07/11/19 Gabapentin [Neurontin] 300 mg PO TID 06/29/18 07/11/19 INSULIN LISPRO (For Pump) [humaLOG 0.01 units SQ-PUMP CONTINUOUS 06/29/18 1 (For Pump)] Quinapril/Hydrochlorothiazide 1 tab PO BID 06/29/18 07/11/19 [Quinapril-Hctz 20-12.5 mg Tab] amLODIPine BESYLATE [Norvasc] 5 mg PO QAM 06/29/18 07/11/19 metFORMIN HCL 1,000 mg PO BID 03/15/19 07/11/19 Previous Rx's Medication Instructions Recorded Cyclobenzaprine [Flexeril] 10 mg PO TID #14 tab 07/11/19 Hydrocodone/Acetaminophen [[place] 1 each PO Q6HR PRN #20 tab 07/11/19 5-325] predniSONE 20 mg PO BID #10 tab 07/11/19 Allergies Allergy/AdvReac Type Severity Reaction Status Date / Time No Known Allergies Allergy Verified 07/11/19 08:07 Review of Systems ROS Other: All systems not noted in ROS Statement are negative. <Keyonna Wright - Last Filed: 07/10/19 14:08> ROS Other: All systems not noted in ROS Statement are negative. <Noemi Fodr - Last Filed: 07/11/19 12:21> ROS Statement: Those systems with pertinent positive or pertinent negative responses have been documented in the HPI. Past Medical History Past Medical History: Diabetes Mellitus, Hyperlipidemia, Hypertension, Vascular Disorder Additional Past Medical History / Comment(s): CURRENT; CONTINUES TO HAVE CRAMPS IN CALVES. Insulin pump, Neuropathy, PVD. sciatic nerve pain. History of Any Multi-Drug Resistant Organisms: None Reported Past Surgical History: Tonsillectomy Additional Past Surgical History / Comment(s): Bilateral leg bypass surgery, bilateral cataracts. 11/09/18 THERESA LOWER EXT ANGO. 08/22/18 LT SFA PTBA. 09/05/2018 Stent RSFA. Angiogram/aortagram Past Anesthesia/Blood Transfusion Reactions: No Reported Reaction Past Psychological History: No Psychological Hx Reported Smoking Status: Former smoker Past Alcohol Use History: None Reported Past Drug Use History: None Reported - Past Family History Mother Family Medical History: No Reported History <Keyonna Wright - Last Filed: 07/10/19 14:08> General Exam Limitations: physical limitation <Keyonna Wright - Last Filed: 07/10/19 14:08> - General Exam Comments Initial Comments: General: The patient is awake and alert, in no distress, and does not appear acutely ill. Eye: +3 m pupils are equal, round and reactive to light, extra-ocular movements are intact. No nystagmus. There is normal conjunctiva bilaterally. No signs of icterus. Ears, nose, mouth and throat: There are moist mucous membranes and no oral lesions. Neck: The neck is supple, there is no tenderness or JVD. Cardiovascular: There is a regular rate and rhythm. No murmur, rub or gallop is appreciated. Respiratory: Lungs are clear to auscultation, respirations are non-labored, breath sounds are equal. No wheezes, stridor, rales, or rhonchi. Gastrointestinal: Soft, non-distended, non-tender abdomen without masses or organomegaly noted. There is no rebound or guarding present. No masses. Musculoskeletal: No midline tenderness to palpation of the cervical thoracic or lumbar spine. Patient is able to fully range at the cervical spine without difficulty. Patient is full range of motion and strength of the lower extremities. Sensation intact of the lower extremity bilaterally. Nonpalpable right-sided dorsalis pedis pulses are posterior tibial however there were identifiable a strong pulses on Doppler. Both extremities are equal and warmth bilaterally no pallor noted. Palpable dorsalis pedis and posterior tibial pulses of the left lower extremities equal bilaterally 2+. Patient has point localized tenderness to palpation of the mid buttock. No saddle anesthesia Neurological: A&O x 3. CN II-XII intact grossly, There are no obvious motor or sensory deficits. Coordination appears grossly intact. Speech is normal. Skin: Skin is warm and dry and no rashes or lesions are noted. Psychiatric: Cooperative, appropriate mood & affect, normal judgment. (Keyonna Wright) Course <Keyonna Wright - Last Filed: 07/10/19 14:08> Vital Signs 07/10/19 06:30 Temperature 98.0 F Pulse Rate 76 Respiratory 17 Rate Blood Pressure 156/63 O2 Sat by Pulse 100 Oximetry - Reevaluation(s) Reevaluation #1: 07/10/19 07:41 Patient refused to lay down for study secondary to pain, will attempt pain control and repeat study when patient able to tolerate. (Keyonna Wright) Medical Decision Making - Lab Data Result diagrams: 07/10/19 06:50 07/10/19 06:50 <Keyonna Wright Garcia - Last Filed: 07/10/19 14:08> - Lab Data Result diagrams: 07/10/19 06:50 07/10/19 06:50 <Noemi Ford - Last Filed: 07/11/19 12:21> - Medical Decision Making 73-year-old male presents emergency room for evaluation of burning pain mid buttock rating towards foot. Patient states this is different from claudication. CTA revealed a possible occlusion does not appear acute. CT was reviewed by patient's kids club attendant and vascular surgeon Dr. Mcfarland- who evaluated the patient in the ER, who stated that this is not a new finding-he recommends discharge home with outpatient f/u. Given patient is asymptomatic upon reevaluation, only have his typical claudication, warm extremities. N/V intact. With no acute imaging studies, myself and attending provider Dr. Ford are agreeable with recommendation. Patient who now has no pain at rest, denies burning midbuttock pain is agreeable with discharge home and care plan. Return parameters discussed patient discharged appearing well (Keyonna Wright) I was available for consultation in the emergency department. The history and physical exam were done by the midlevel provider. [facility] I reviewed the case with the midlevel provider and based on their presentation of the patient, I agree with the assessment, medical decision making and plan of care as documented. I called and discussed the case with Dr. Yeboah. Dr. Yeboah does present to the ED and evaluates the patient. He is agreeable to hospital discharge. Chart was dictated using [employer] dictation software. Attempts were made to correct any dictation errors however some typographical errors may persist. (Noemi Ford) - Lab Data Lab Results 07/10/19 07/10/19 07/10/19 Range/Units 06:50 06:50 06:50 WBC 8.6 (3.8-10.6) k/uL RBC 4.95 (4.30-5.90) m/uL Hgb 14.9 (13.0-17.5) gm/dL Hct 46.2 (39.0-53.0) % MCV 93.5 (80.0-100.0) fL MCH 30.0 (25.0-35.0) pg MCHC 32.1 (31.0-37.0) g/dL RDW 13.6 (11.5-15.5) % Plt Count 207 (150-450) k/uL Neutrophils % 73 % Lymphocytes % 14 % Monocytes % 8 % Eosinophils % 2 % Basophils % 1 % Neutrophils # 6.3 (1.3-7.7) k/uL Lymphocytes # 1.2 (1.0-4.8) k/uL Monocytes # 0.7 (0-1.0) k/uL Eosinophils # 0.2 (0-0.7) k/uL Basophils # 0.1 (0-0.2) k/uL PT 9.7 (9.0-12.0) sec INR 0.9 (<1.2) APTT 25.7 (22.0-30.0) sec Sodium 139 (137-145) mmol/L Potassium 4.7 (3.5-5.1) mmol/L Chloride 101 (98-107) mmol/L Carbon Dioxide 25 (22-30) mmol/L Anion Gap 13 mmol/L BUN 28 H (9-20) mg/dL Creatinine 1.10 (0.66-1.25) mg/dL Est GFR (CKD-EPI)AfAm 76 (>60 ml/min/1.73 sqM) Est GFR (CKD-EPI)NonAf 65 (>60 ml/min/1.73 sqM) Glucose 118 H (74-99) mg/dL Lactic Ac Sepsis Rflx Plasma Lactic Acid Kehinde (0.7-2.0) mmol/L Calcium 10.2 (8.4-10.2) mg/dL Total Bilirubin 0.8 (0.2-1.3) mg/dL AST 29 (17-59) U/L ALT 30 (21-72) U/L Alkaline Phosphatase 112 (38-126) U/L Total Protein 7.8 (6.3-8.2) g/dL Albumin 4.6 (3.5-5.0) g/dL 07/10/19 07/10/19 07/10/19 Range/Units 06:50 07:15 10:54 WBC (3.8-10.6) k/uL RBC (4.30-5.90) m/uL Hgb (13.0-17.5) gm/dL Hct (39.0-53.0) % MCV (80.0-100.0) fL MCH (25.0-35.0) pg MCHC (31.0-37.0) g/dL RDW (11.5-15.5) % Plt Count (150-450) k/uL Neutrophils % % Lymphocytes % % Monocytes % % Eosinophils % % Basophils % % Neutrophils # (1.3-7.7) k/uL Lymphocytes # (1.0-4.8) k/uL Monocytes # (0-1.0) k/uL Eosinophils # (0-0.7) k/uL Basophils # (0-0.2) k/uL PT (9.0-12.0) sec INR (<1.2) APTT (22.0-30.0) sec Sodium (137-145) mmol/L Potassium (3.5-5.1) mmol/L Chloride (98-107) mmol/L Carbon Dioxide (22-30) mmol/L Anion Gap mmol/L BUN (9-20) mg/dL Creatinine (0.66-1.25) mg/dL Est GFR (CKD-EPI)AfAm (>60 ml/min/1.73 sqM) Est GFR (CKD-EPI)NonAf (>60 ml/min/1.73 sqM) Glucose (74-99) mg/dL Lactic Ac Sepsis Rflx Y Plasma Lactic Acid Kehinde 2.2 H* 1.4 (0.7-2.0) mmol/L Calcium (8.4-10.2) mg/dL Total Bilirubin (0.2-1.3) mg/dL AST (17-59) U/L ALT (21-72) U/L Alkaline Phosphatase (38-126) U/L Total Protein (6.3-8.2) g/dL Albumin (3.5-5.0) g/dL Disposition Is patient prescribed a controlled substance at d/c from ED?: No Time of Disposition: 13:06 <Keyonna Wright - Last Filed: 07/10/19 14:08> <Noemi Ford - Last Filed: 07/11/19 12:21> Clinical Impression: Right leg pain Disposition: HOME SELF-CARE Condition: Good Instructions (If sedation given, give patient instructions): Sciatica (ED) Additional Instructions: Please use medication as discussed. Please follow-up with family doctor in the next 2 days, and DR. Mcfarland as discussed. Please return to emergency room if the symptoms increase or worsen or for any other concerns. Referrals: Suellen Bueno MD [Primary Care Provider] - 1-2 days
[2019-07-10] MEDS ORDERED: MORPHINE SULFATE 4 MG/ML SYRINGE IVP STA (06:54)
[2019-07-10 07:02] LABS: Basophils # (A) 0.1 k/uL (0-0.2); Basophils % (A) 1 %; Eosinophils # (A) 0.2 k/uL (0-0.7); Eosinophils % (A) 2 %; HCT 46.2 % (39.0-53.0); HGB 14.9 gm/dL (13.0-17.5); Lymphocytes # (A) 1.2 k/uL (1.0-4.8); Lymphocytes % (A) 14 %; MCHC 32.1 g/dL (31.0-37.0); MCV 93.5 fL (80.0-100.0); Monocytes # (A) 0.7 k/uL (0-1.0); Monocytes % (A) 8 %; Neutrophils # (A) 6.3 k/uL (1.3-7.7); Neutrophils % (A) 73 %; Platelet Count 207 k/uL (150-450); RBC 4.95 m/uL (4.30-5.90); RDW 13.6 % (11.5-15.5); WBC 8.6 k/uL (3.8-10.6)
[2019-07-10 07:11] LABS: Albumin 4.6 g/dL (3.5-5.0); Calcium 10.2 mg/dL (8.4-10.2); Potassium 4.7 mmol/L (3.5-5.1); Total Bilirubin 0.8 mg/dL (0.2-1.3); Total Protein 7.8 g/dL (6.3-8.2)
[2019-07-10 07:17] LABS: INR 0.9 (<1.2); Partial Thromboplastin Time 25.7 sec (22.0-30.0); Prothrombin Time 9.7 sec (9.0-12.0)
[2019-07-10] MEDS ORDERED: SODIUM CHLORIDE 0.9% 1,000 ML IV ONE (07:26)
[2019-07-10] MEDS ORDERED: SODIUM CHLORIDE 0.9% 1,000 ML IV SCH (07:30)
[2019-07-10] MEDS ORDERED: HYDROmorphone 0.5 MG/0.5 ML SYRINGE IVP STA (07:41)
[2019-07-10] MEDS ORDERED: ONDANSETRON 4 MG/2 ML VIAL IVP STA (09:04)
[2019-07-10] MEDS ORDERED: MORPHINE SULFATE 2 MG/ML SYRINGE IVP STA (10:13)
--- NOTE | 2019-07-10 11:48 | CT ---
EXAMINATION TYPE: CT angio abd aorta w/Runoff DATE OF EXAM: 07/10/2019 COMPARISON: Aortogram and outflow 03/21/2019 HISTORY: History of PAD; Severe right leg pain---new CT DLP: 2166.4 mGycm, Automated Exposure Control for Dose Reduction was Utilized. CONTRAST: CT scan of the abdomen and pelvis is performed with oral and without and with IV Contrast, patient in jected with 100 ml mL of Isovue 370. Three-dimensional reconstructions performed on an alternate work station. FINDINGS: Exam is somewhat limited technically. In comparison to prior angiogram, again noted is the femoral to femoral bypass graft which is patent. Right [place] common iliac artery is occluded as on prior. The aorta has dense wall as do multiple pe ripheral vessels and the lumens of multiple vessels is small making evaluation of enhancement difficu lt to state with certainty. The left common iliac, internal and external iliac arteries are patent. Left superficial femoral peggy ry shows eccentric plaque but is thought to enhance, deep femoral artery also enhances. Peripherally, the superficial femoral artery diminutive but thought to be patent with probable segmental tandem st enoses. 4 peripheral enhancement is noted below the knee. On the right there is thought to be some enhancement of the trifurcation vessels below the knee altho ugh the vessels are markedly diminutive. The popliteal artery shows at least partial enhancement but is markedly diminutive. Probable tandem stenoses present within the superficial femoral artery on the right, there are areas that do not show definitive enhancement however. The right deep femoral arter y is thought to be patent. Atheromatous changes are present at the origins of the renal arteries which are thought to be patent as well as the superior mesenteric artery. Celiac axis is patent. Coronary artery calcifications are present. Liver shows low attenuation possibly due to hepatic steatosis. Difficult to exclude a small gallbladder polyp or stone. Nonobstructive lower pole left renal calculus measures only approximately 3 mm. There is an anterior abdominal wall hernia containing fat. IMPRESSION: Peripheral vascular occlusive disease as described. There are limitations technically, de nse vascular calcifications also limit the exam.
== END 2019-07-10 13:18 | disposition home or self-care (01) ==
LOC: EC 06:28
DX: M79.604 Pain in right leg (principal); M54.9 Dorsalgia, unspecified; E11.51 Type 2 diabetes mellitus with diabetic peripheral angiopathy without gangrene; E11.42 Type 2 diabetes mellitus with diabetic polyneuropathy; I10 Essential (primary) hypertension; E78.5 Hyperlipidemia, unspecified; Z79.82 Long term (current) use of aspirin; Z79.02 Long term (current) use of antithrombotics/antiplatelets; Z79.4 Long term (current) use of insulin; Z79.899 Other long term (current) drug therapy; Z87.891 Personal history of nicotine dependence; Z95.5 Presence of coronary angioplasty implant and graft
CPT/HCPCS: 36415; 80053; 83605; 85025; 85610; 85730; 75635; 99284; 96374; 96375 ×2; 96361 ×5; J2270; J2405; J1170; Q9967

== ENCOUNTER 2019-07-11 03:46 | Emergency (ER) | payer MEDICARE, BC ==
[2019-07-11] MEDS ORDERED: HYDROmorphone 1 MG/ML 1 ML SYRINGE IVP STA (04:40)
[2019-07-11 05:18] LABS: Basophils # (A) 0.1 k/uL (0-0.2); Basophils % (A) 1 %; Eosinophils # (A) 0.2 k/uL (0-0.7); Eosinophils % (A) 2 %; HCT 41.2 % (39.0-53.0); HGB 14.1 gm/dL (13.0-17.5); Lymphocytes # (A) 0.9 k/uL (1.0-4.8); Lymphocytes % (A) 9 %; MCH 31.4 pg (25.0-35.0); MCHC 34.3 g/dL (31.0-37.0); MCV 91.5 fL (80.0-100.0); Mean Platelet Volume 8.1; Monocytes # (A) 0.9 k/uL (0-1.0); Monocytes % (A) 8 %; Neutrophils # (A) 8.2 k/uL (1.3-7.7); Neutrophils % (A) 79 %; Platelet Count 192 k/uL (150-450); RDW 13.6 % (11.5-15.5); WBC 10.4 k/uL (3.8-10.6)
[2019-07-11 05:28] LABS: Calcium 9.7 mg/dL (8.4-10.2); Potassium 4.4 mmol/L (3.5-5.1)
--- NOTE | 2019-07-11 05:45 | ED ---
Extremity Problem HPI - General Source: patient, family Mode of arrival: wheelchair Limitations: no limitations - History of Present Illness MD Complaint: extremity pain, extremity swelling -: week(s) Location: right, lower extremity History of Same: Yes Quality: burning, aching Consistency: constant Worsens with: walking, other (Elevation) <Rajendra Roland - Last Filed: 07/11/19 05:41> <Hill King - Last Filed: 07/11/19 09:47> - General Chief complaint: Extremity Problem,Nontraumatic Stated complaint: foot pain Time Seen by Provider: 07/11/19 04:12 - History of Present Illness Initial comments: This patient is a 73-year-old man who presents with complaint of having 2 types of pain to his right lower extremity. Patient states she is having a flareup of sciatic nerve pain that he states starts in his low back and goes down the back of his leg towards his right foot. The patient states that he is also having a flareup of pain related to arterial insufficiency. He is reportedly waiting to have a stent placed in his right lower extremity by one of the interventionalists. He states that they are just working on scheduling the date for this. This pain has been going on for weeks to months. Patient states that over the past couple of days his pain has become more severe. Patient states that he is no longer able to sleep because if he attempts to lie flat or bring his right foot up he experiences severe pain area he states that if he lowers his foot off the bed he does feel a little better. Patient complains that his right foot also feels numb. (Rajendra Roland) - Related Data Home Medications Medication Instructions Recorded Confirmed Aspirin [Adult Low Dose Aspirin EC] 81 mg PO DAILY 06/29/18 07/11/19 Atorvastatin [Lipitor] 40 mg PO HS 06/29/18 07/11/19 Clopidogrel [Plavix] 75 mg PO DAILY 06/29/18 07/11/19 Empagliflozin [Jardiance] 25 mg PO QAM 06/29/18 07/11/19 Finasteride [Proscar] 5 mg PO HS 06/29/18 07/11/19 Gabapentin [Neurontin] 300 mg PO TID 06/29/18 07/11/19 INSULIN LISPRO (For Pump) [humaLOG 0.01 units SQ-PUMP CONTINUOUS 06/29/18 07/11/19 (For Pump)] Quinapril/Hydrochlorothiazide 1 tab PO BID 06/29/18 07/11/19 [Quinapril-Hctz 20-12.5 mg Tab] amLODIPine BESYLATE [Norvasc] 5 mg PO QAM 06/29/18 07/11/19 metFORMIN HCL 1,000 mg PO BID 03/15/19 07/11/19 Previous Rx's Medication Instructions Recorded Cyclobenzaprine [Flexeril] 10 mg PO TID #14 tab 07/11/19 Hydrocodone/Acetaminophen [[place] 1 each PO Q6HR PRN #20 tab 07/11/19 5-325] predniSONE 20 mg PO BID #10 tab 07/11/19 Allergies Allergy/AdvReac Type Severity Reaction Status Date / Time No Known Allergies Allergy Verified 07/11/19 08:07 Review of Systems ROS Other: All systems not noted in ROS Statement are negative. Constitutional: Denies: fever, chills, weakness Respiratory: Denies: cough, dyspnea Cardiovascular: Reports: edema. Denies: chest pain, palpitations, orthopnea Gastrointestinal: Denies: abdominal pain, vomiting, diarrhea Genitourinary: Denies: dysuria Musculoskeletal: Reports: as per HPI, back pain Skin: Denies: rash Neurological: Reports: as per HPI, numbness. Denies: headache, weakness, pares thesias <Rajendra Roland - Last Filed: 07/11/19 05:41> ROS Other: All systems not noted in ROS Statement are negative. <Hill King - Last Filed: 07/11/19 09:47> ROS Statement: Those systems with pertinent positive or pertinent negative responses have been documented in the HPI. Past Medical History Past Medical History: Diabetes Mellitus, Hyperlipidemia, Hypertension, Vascular Disorder Additional Past Medical History / Comment(s): CURRENT; CONTINUES TO HAVE CRAMPS IN CALVES. Insulin pump, Neuropathy, PVD. sciatic nerve pain. History of Any Multi-Drug Resistant Organisms: None Reported Past Surgical History: Tonsillectomy Additional Past Surgical History / Comment(s): Bilateral leg bypass surgery, bilateral cataracts. 11/09/18 THERESA LOWER EXT ANGO. 08/22/18 LT SFA PTBA. 09/05/2018 Stent RSFA. Angiogram/aortagram Past Anesthesia/Blood Transfusion Reactions: No Reported Reaction Past Psychological History: No Psychological Hx Reported Smoking Status: Former smoker Past Alcohol Use History: None Reported Past Drug Use History: None Reported - Past Family History Mother Family Medical History: No Reported History <Rajendra Roland - Last Filed: 07/11/19 05:41> General Exam Limitations: no limitations General appearance: alert, in no apparent distress Head exam: Present: atraumatic, normocephalic Eye exam: Present: normal appearance. Absent: scleral icterus, conjunctival injection Neck exam: Present: normal inspection Respiratory exam: Present: normal lung sounds bilaterally. Absent: respiratory distress, wheezes, rales, rhonchi, stridor Cardiovascular Exam: Present: regular rate, normal rhythm, normal heart sounds. Absent: systolic murmur, diastolic murmur, rubs, gallop GI/Abdominal exam: Present: soft. Absent: tenderness Extremities exam: Present: tenderness, normal capillary refill, pedal edema, calf tenderness Neurological exam: Present: alert. Absent: motor sensory deficit Skin exam: Present: warm, dry, intact, erythema <Rajendra Roland - Last Filed: 07/11/19 05:41> Course <FernandoHill - Last Filed: 07/11/19 09:47> Vital Signs 07/11/19 07/11/19 03:50 05:54 Temperature 98 F Pulse Rate 77 83 Respiratory 20 20 Rate Blood Pressure 155/67 166/79 O2 Sat by Pulse 98 93 L Oximetry - Reevaluation(s) Reevaluation #1: 07/11/19 09:42 Patient was endorsed me by Dr. Roland at our shift change pending Doppler studies of lower extremities no evidence of DVT is seen. Patient has in addition to the peripheral vascular disease he does have sciatica with right- sided symptoms which he states actually brought him to the hospital today. Additionally he does have a ventral hernia that is scheduled for repair. Patient would like to get his legs aching care first I did discuss the case with Dr. Mcfarland patient will be discharged as his pain is improved and Dr. Tanner's office will contact him with the time for the evaluation of the arterial insufficiency. Patient does maintain full pulses. I did recommend however they do elevate his legs as he does have some edema likely dependent. 07/11/19 09:45 I did examine the patient's back he does have tenderness over the right SI joint and right gluteus consistent with sciatica. (Hill King) Medical Decision Making - Lab Data Result diagrams: 07/11/19 05:00 07/11/19 05:00 <KatehanyRajendra - Last Filed: 07/11/19 05:41> - Lab Data Result diagrams: 07/11/19 05:00 07/11/19 05:00 <Hill King - Last Filed: 07/11/19 09:47> - Lab Data Lab Results 07/11/19 07/11/19 07/11/19 Range/Units 05:00 05:00 05:00 WBC 10.4 (3.8-10.6) k/uL RBC 4.50 (4.30-5.90) m/uL Hgb 14.1 (13.0-17.5) gm/dL Hct 41.2 (39.0-53.0) % MCV 91.5 (80.0-100.0) fL MCH 31.4 (25.0-35.0) pg MCHC 34.3 (31.0-37.0) g/dL RDW 13.6 (11.5-15.5) % Plt Count 192 (150-450) k/uL Neutrophils % 79 % Lymphocytes % 9 % Monocytes % 8 % Eosinophils % 2 % Basophils % 1 % Neutrophils # 8.2 H (1.3-7.7) k/uL Lymphocytes # 0.9 L (1.0-4.8) k/uL Monocytes # 0.9 (0-1.0) k/uL Eosinophils # 0.2 (0-0.7) k/uL Basophils # 0.1 (0-0.2) k/uL D-Dimer (<0.60) mg/L FEU Sodium 137 (137-145) mmol/L Potassium 4.4 (3.5-5.1) mmol/L Chloride 102 (98-107) mmol/L Carbon Dioxide 27 (22-30) mmol/L Anion Gap 8 mmol/L BUN 24 H (9-20) mg/dL Creatinine 1.03 (0.66-1.25) mg/dL Est GFR (CKD-EPI)AfAm 82 (>60 ml/min/1.73 sqM) Est GFR (CKD-EPI)NonAf 71 (>60 ml/min/1.73 sqM) Glucose 121 H (74-99) mg/dL Plasma Lactic Acid Kehinde 1.2 (0.7-2.0) mmol/L Calcium 9.7 (8.4-10.2) mg/dL 07/11/19 Range/Units 05:00 WBC (3.8-10.6) k/uL RBC (4.30-5.90) m/uL Hgb (13.0-17.5) gm/dL Hct (39.0-53.0) % MCV (80.0-100.0) fL MCH (25.0-35.0) pg MCHC (31.0-37.0) g/dL RDW (11.5-15.5) % Plt Count (150-450) k/uL Neutrophils % % Lymphocytes % % Monocytes % % Eosinophils % % Basophils % % Neutrophils # (1.3-7.7) k/uL Lymphocytes # (1.0-4.8) k/uL Monocytes # (0-1.0) k/uL Eosinophils # (0-0.7) k/uL Basophils # (0-0.2) k/uL D-Dimer 1.64 H (<0.60) mg/L FEU Sodium (137-145) mmol/L Potassium (3.5-5.1) mmol/L Chloride (98-107) mmol/L Carbon Dioxide (22-30) mmol/L Anion Gap mmol/L BUN (9-20) mg/dL Creatinine (0.66-1.25) mg/dL Est GFR (CKD-EPI)AfAm (>60 ml/min/1.73 sqM) Est GFR (CKD-EPI)NonAf (>60 ml/min/1.73 sqM) Glucose (74-99) mg/dL Plasma Lactic Acid Kehinde (0.7-2.0) mmol/L Calcium (8.4-10.2) mg/dL Disposition <Rajendra Roland - Last Filed: 07/11/19 05:41> Is patient prescribed a controlled substance at d/c from ED?: Yes When asked, does pt state using other controlled substances?: No If prescribed controlled substance>3 days was MAPS reviewed?: Prescribed <3 Days If opioid is for acute pain is fill amount 7 days or less?: Yes If Rx opioid, was Start Talking consent form obtained?: Yes <Hill King - Last Filed: 07/11/19 09:47> Clinical Impression: Peripheral vascular disease, Sciatica of right side Disposition: HOME SELF-CARE Condition: Good Instructions (If sedation given, give patient instructions): Peripheral Vascular Disease (ED), Sciatica (ED) Prescriptions: Cyclobenzaprine [Flexeril] 10 mg PO TID #14 tab Hydrocodone/Acetaminophen [[place] 5-325] 1 each PO Q6HR PRN #20 tab PRN Reason: Pain predniSONE 20 mg PO BID #10 tab Referrals: Suellen Bueno MD [Primary Care Provider] - 1-2 days Elier Tanner MD [STAFF PHYSICIAN] - 1-2 days
--- NOTE | 2019-07-11 07:07 | US ---
EXAMINATION TYPE: US venous doppler duplex LE RT DATE OF EXAM: 07/11/2019 6:56 AM COMPARISON: NONE CLINICAL HISTORY: Possible DVT. Possible DVT per order. Feet swelling. No HX of DVT. Patient is on bl ood thinners. HX bilateral leg bypass surgery. SIDE PERFORMED: Right TECHNIQUE: The lower extremity deep venous system is examined utilizing real time linear array sonog flex with graded compression, doppler sonography and color-flow sonography. VESSELS IMAGED: Common Femoral Vein Deep Femoral Vein Greater Saphenous Vein * Femoral Vein Popliteal Vein Small Saphenous Vein * Proximal Calf Veins (* superficial vessels) Right Leg: Limited due to patient's position sitting straight up. No evidence of DVT in veins imaged from prox calf veins to CFV. EIV not visualized. Limited compression views due to shadowing from art eries. IMPRESSION: Suboptimal study without convincing evidence of acute DVT.
[2019-07-11] MEDS ORDERED: KETOROLAC 30 MG/ML 1 ML VIAL IVP STA (08:42)
[2019-07-11] MEDS ORDERED: methylPREDNISolone SOD SUCCI 125 MG/2 ML VIAL IV STA (08:43)
[2019-07-11 10:08] VITALS: BP 172/66; PULSE 72; RESP 17; TEMP 98
== END 2019-07-11 10:07 | disposition home or self-care (01) ==
LOC: EC 03:46
DX: M54.31 Sciatica, right side (principal); E11.51 Type 2 diabetes mellitus with diabetic peripheral angiopathy without gangrene; R60.0 Localized edema; L53.9 Erythematous condition, unspecified; E11.40 Type 2 diabetes mellitus with diabetic neuropathy, unspecified; E78.5 Hyperlipidemia, unspecified; I10 Essential (primary) hypertension; Z87.891 Personal history of nicotine dependence; Z79.02 Long term (current) use of antithrombotics/antiplatelets; Z79.4 Long term (current) use of insulin; Z79.82 Long term (current) use of aspirin; Z79.899 Other long term (current) drug therapy; Z96.41 Presence of insulin pump (external) (internal); Z95.828 Presence of other vascular implants and grafts
CPT/HCPCS: 36415; 85379; 80048; 83605; 85025; 93971; 99284; 96374; 96375 ×2; J2930; J1885; J1170

== ENCOUNTER 2019-07-17 12:50 | Day surgery (SDC) | payer MEDICARE, BC ==
[~2019-07-17 12:50] MED LIST changes: -ALPRAZolam 0.5 MG TAB PO PRN; -ATORVASTATIN 80 MG TAB PO STA; -NITROGLYCERIN SL TABS 0.4 MG TAB SUBLINGUAL PRN
[2019-07-17 13:22] LABS: Glucose,Whole Blood 207 mg/dL (75-99)
[2019-07-17] MEDS ORDERED: INSULIN ASPART (NovoLOG) 100 UNIT/ML VIAL SQ ONE (13:30)
[2019-07-17] MEDS ORDERED: CLOPIDOGREL 75 MG TAB PO ONE (13:30)
[2019-07-17] MEDS: SODIUM CHLORIDE 0.9% 1,000 ML IV ONE ×2 (13:30→19:06)
[2019-07-17] MEDS ORDERED: amLODIPine 5 MG TAB PO ONE (13:30)
[2019-07-17] MEDS ORDERED: HYDROmorphone 1 MG/ML 1 ML SYRINGE IVP ONE ×2 (14:20→14:33)
[2019-07-17] MEDS: fentaNYL (PF) 50 MCG/ML 2 ML AMP IV ONE ×2 (14:25→14:34)
[2019-07-17] MEDS ORDERED: MIDAZOLAM 2 MG/2 ML VIAL IV ONE (14:25)
[2019-07-17] MEDS ORDERED: IV FLUID CONTINUATION 600 ML IV ONE (14:35)
[2019-07-17] MEDS ORDERED: SODIUM CHLORIDE 0.9% 500 ML 500 ML with niCARdipine 6.25 MG, NITROGLYCERIN-D5W PMX 0.05... IV ONE ×4 (14:45)
[2019-07-17] MEDS ORDERED: LIDOCAINE 1% INJ 10MG/ML (20 ML MDV) SQ ONE ×2 (14:47→15:42)
[2019-07-17] MEDS ORDERED: MIDAZOLAM 2 MG/2 ML VIAL ONE (15:07)
[2019-07-17] MEDS ORDERED: PHENYLEPHRINE-0.9% NACL SYG 1 MG/10 ML SYRINGE ONE (15:07)
[2019-07-17] MEDS ORDERED: HEPARIN SODIUM,PORCINE 10,000 UNIT/ML 1 ML VIAL ONE (15:07)
[2019-07-17] MEDS ORDERED: PROPOFOL 10 MG/ML 20 ML VIAL IV ONE (15:07)
[2019-07-17] MEDS ORDERED: HEPARIN SODIUM 1,000 UN/ML (10ML VL) IV ONE (15:50)
[2019-07-17] MEDS: NITROGLYCERIN 1000MCG/10ML SYRINGE INTRAARTER ONE ×2 (15:51→16:34)
[2019-07-17] MEDS ORDERED: niCARdipine Syringe (1,000 mcg/10 mL) INTRAARTER ONE (16:34)
[2019-07-17] MEDS ORDERED: IOPAMIDOL-250 100ML BTL INTRAARTER ONE (16:59)
[2019-07-17] MEDS ORDERED: CLOPIDOGREL 75 MG TAB PO STA (17:00)
[2019-07-17] MEDS ORDERED: LACTATED RINGERS 1,000 ML IV ONE (17:05)
[2019-07-17] MEDS ORDERED: INSULIN LISPRO (For Pump) 100 UNIT/ML VIAL SQ-PUMP SCH (17:15)
[2019-07-17] MEDS ORDERED: SODIUM CHLORIDE 0.9% 1,000 ML IV SCH (17:15)
[2019-07-17 17:47] LABS: Glucose,Whole Blood 152 mg/dL (75-99)
[2019-07-17] MEDS: HYDROcodone/APAP 5-325MG 1 EACH TAB PO PRN (19:00)
[2019-07-17] MEDS: amLODIPine 5 MG TAB PO SCH (19:06)
[2019-07-17] MEDS: CLOPIDOGREL 75 MG TAB PO SCH (19:06)
--- NOTE | 2019-07-17 19:06 | LTR ---
DATE OF SERVICE: July 17, [address] Roach: Mr. Addison Reyes underwent today successful atherectomy and angioplasty of the right femoral artery and right popliteal artery with an excellent angiographic results and without any complication. I want to thank you for allowing us to participate in his care and please do not hesitate to call if you have any questions or concerns. Sincerely, MARCO / JOSE MARIAN: [id number] /
--- NOTE | 2019-07-17 19:35 | AN ---
ANGIOGRAPHY REPORT DATE OF SERVICE: July 17, 2019 PERFORMING PHYSICIAN: Elier Tanner MD, recordak operator. PROCEDURE PERFORMED: 1. Right lower extremity angiogram. 2. 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 3. An atherectomy of the right SFA and right popliteal using the orbital atherectomy device from [employer]. 4. Successful balloon angioplasty of the right SFA and right popliteal using drug- coated balloon with an excellent angiographic results and reduction of stenosis from 100% to 0%. INDICATION: This is a pleasant 73-year-old gentleman with history of peripheral arterial disease and known prior peripheral intervention on the right leg as well as prior stenting of the left common iliac artery and also known fem-fem bypass who was experiencing severe right leg intermittent claudication. Initially, he underwent a peripheral angiogram and that revealed critical right SFA. He scheduled to undergo peripheral intervention, but the patient was busy with his and taking care of her and because of that, he did not pursue with peripheral intervention. Recently he presented to the emergency room with right leg discomfort and underwent a CTA which revealed a critical right SFA and severe [id number] disease. At that point, the patient was not in critical limb ischemia and because of that, he was discharged home and scheduled to undergo an intervention. APPROACH: Fem-fem bypass access. COMPLICATION: None. SEDATION: The sedation was the sedation was performed with TACK WELDER and anesthesiologist under general anesthesia. PROCEDURE DESCRIPTION: After obtaining an informed consent, the patient was brought to the cardiac greenskeeper laborer. Initially I attempted accessing the right posterior tibial artery, but I was unable because the edema in the leg. At that point, I did access the fem-fem bypass and I placed a 6-Croatian 55 cm sheath. I did that over a 0.035 [place] Advantage wire which was advanced from the fem-fem bypass to the right SFA. After that, I did right lower extremity angiogram which revealed very diminished flow below the knee on the right side with severe disease involving the right popliteal and occluded right SFA. I crossed the SFA occlusion using 0.035 [place] Advantage Glidewire. After that, I did atherectomy of the right popliteal using the orbital atherectomy device from [employer]. I was not going to do atherectomy of the right SFA because the SFA was stented, but I could not advance the orbital atherectomy device to the right popliteal because of the severe disease in the right SFA and because of that, I did atherectomized the SFA. I did that using the same orbital atherectomy device. After that, I did balloon angioplasty using 6 mm chocolate balloon. It was inflated in the popliteal, in the distal right SFA, mid right SFA and proximal right SFA. The following angiogram showed good angiographic results. Subsequently I did balloon angioplasty of the right popliteal and right SFA using drug-coated balloon which was 6 mm x 250 and 6 mm x 200 mm. Both balloons were inflated under fluoroscopy guidance and placed under fluoroscopy guidance for 3 minutes. The following angiogram showed excellent angiographic results with excellent flow below the knee. The procedure at that point was completed. At that point, I did exchange my long sheath into 11 cm 6-Croatian sheath using Glidewire. The procedure was completed without any complication. POSTPROCEDURE MANAGEMENT: 1. Dual anti-platelet therapy. 2. Risk factor modifications. 3. Follow up with the patient. MARCO / ADENIKE: [id number] /
[2019-07-17] MEDS: GABAPENTIN 300 MG CAP PO SCH (20:08)
[2019-07-17] MEDS: LISINOPRIL 20 MG TAB PO SCH (20:09)
[2019-07-17] MEDS: predniSONE 20 MG TAB PO SCH (20:09)
[2019-07-17] MEDS: HYDROCHLOROTHIAZIDE 12.5 MG CAP PO SCH (20:09)
[2019-07-17] MEDS: CYCLOBENZAPRINE 10 MG TAB PO SCH (20:09)
[2019-07-17 20:55] LABS: Glucose,Whole Blood 210 mg/dL (75-99)
[2019-07-17] MEDS ORDERED: ATORVASTATIN 40 MG TAB PO SCH (21:00)
[2019-07-17] MEDS ORDERED: FINASTERIDE 5 MG TAB PO SCH (21:00)
[2019-07-17] MEDS ORDERED: HYDROcodone/APAP 5-325MG 1 EACH TAB PO STA (22:42)
[2019-07-18 02:05] VITALS: BMI 27.2
[2019-07-18] MEDS: HYDROcodone/APAP 5-325MG 1 EACH TAB PO PRN (03:25)
[2019-07-18 05:22] VITALS: RESP 16; TEMP 98.4
[2019-07-18 06:21] LABS: Glucose,Whole Blood 349 mg/dL (75-99)
[2019-07-18 06:30] LABS: Basophils % (A) 0 %; Eosinophils % (A) 0 %; HCT 41.9 % (39.0-53.0); HGB 12.4 gm/dL (13.0-17.5); Lymphocytes # (A) 0.6 k/uL (1.0-4.8); Lymphocytes % (A) 6 %; MCHC 29.6 g/dL (31.0-37.0); MCV 94.4 fL (80.0-100.0); Mean Platelet Volume 8.9; Monocytes # (A) 0.4 k/uL (0-1.0); Monocytes % (A) 5 %; Neutrophils % (A) 88 %; Platelet Count 185 k/uL (150-450); RBC 4.44 m/uL (4.30-5.90); RDW 13.7 % (11.5-15.5); WBC 9.2 k/uL (3.8-10.6)
[2019-07-18] MEDS: INSULIN ASPART (NovoLOG) 100 UNIT/ML VIAL SQ SCH ×2 (06:32→11:05)
[2019-07-18 06:42] LABS: Calcium 8.8 mg/dL (8.4-10.2); Potassium 5.7 mmol/L (3.5-5.1)
[2019-07-18] MEDS ORDERED: SODIUM POLYSTYRENE SULFONATE 15 GM/60 ML BOTTLE PO STA (08:57)
[2019-07-18] MEDS ORDERED: ASPIRIN 81 MG PO SCH (09:00)
[2019-07-18 09:18] VITALS: PULSE 84
--- NOTE | 2019-07-18 09:19 | IR ---
EXAMINATION TYPE: IR motorized squad captain femoral popliteal DATE OF EXAM: 07/17/2019 COMPARISON: NONE HISTORY: Fluoroscopy time. Fluoroscopy was provided to the referring clinician.
[2019-07-18] MEDS: CLOPIDOGREL 75 MG TAB PO SCH (09:24)
[2019-07-18] MEDS: amLODIPine 5 MG TAB PO SCH (09:25)
[2019-07-18] MEDS: GABAPENTIN 300 MG CAP PO SCH (09:25)
[2019-07-18] MEDS: HYDROCHLOROTHIAZIDE 12.5 MG CAP PO SCH (09:25)
[2019-07-18] MEDS: predniSONE 20 MG TAB PO SCH (09:25)
[2019-07-18] MEDS: LISINOPRIL 20 MG TAB PO SCH (09:25)
[2019-07-18] MEDS: CYCLOBENZAPRINE 10 MG TAB PO SCH (09:25)
[2019-07-18 11:00] LABS: Glucose,Whole Blood 361 mg/dL (75-99)
[2019-07-18 11:08] VITALS: BP 168/72
--- NOTE | 2019-07-18 13:52 | DS ---
DISCHARGE SUMMARY ADMISSION DATE: 07/17/2019 DISCHARGE DATE: 07/18/2019 This is a pleasant 73-year-old gentleman who was admitted to the hospital yesterday and underwent successful atherectomy and balloon angioplasty of the right leg. The procedure was performed on the right SFA. It was performed from the fem-fem bypass access. The patient did good overnight. The access site is good and nontender and without any bruises. The patient is going to be discharged home later on today. MMROXIEL / IJN: [id number] /
== END 2019-07-18 13:42 | disposition home or self-care (01) ==
LOC: CATHCVL 12:50 → 3SCARD 17:08 → CATHCVL 07-18 13:42
PROVIDERS: ATTEND Internal Medicine Interventional Cardiology
DX: I70.211 Atherosclerosis of native arteries of extremities with intermittent claudication, right leg (principal); I70.92 Chronic total occlusion of artery of the extremities; Z87.891 Personal history of nicotine dependence; E11.51 Type 2 diabetes mellitus with diabetic peripheral angiopathy without gangrene; Z79.84 Long term (current) use of oral hypoglycemic drugs; I10 Essential (primary) hypertension; E78.5 Hyperlipidemia, unspecified; Z95.820 Peripheral vascular angioplasty status with implants and grafts; Z79.02 Long term (current) use of antithrombotics/antiplatelets; Z79.82 Long term (current) use of aspirin; Z79.899 Other long term (current) drug therapy
CPT/HCPCS: 37225; 85347; 80048; 84132; 85025; 83036; C1894 ×3; C1769 ×6; C1714; C1725; C2623 ×2; S0138; J2250; J1644 ×2; J2001; J3010; J1170; J2370; J2704; J7512 ×2; Q9966

== ENCOUNTER → 2019-08-02 | Day surgery (SDC) | payer MEDICARE, BC ==
[2019-07-16 09:27] VITALS: BMI 27.2
[~2019-08-02] MED LIST changes: -ALPRAZolam 0.25 MG TAB PO PRN; -ASPIRIN 325 MG TAB PO STA; +HEPARIN SODIUM,PORCINE 5,000 UNIT/ML 1 ML VIAL SQ ONE; +HYDROmorphone 0.5 MG/0.5 ML SYRINGE IVP PRN; +LIDOCAINE 1% 20 ML VIAL (10MG/ML) FOR IV START INTRADERMA ONE; +MIDAZOLAM 2 MG/2 ML VIAL IV PRN; +ONDANSETRON 4 MG/2 ML VIAL IVP ONE; -SODIUM CHLORIDE 0.9% 1,000 ML in EMPTY BAG 1 BAG IV ONE
[2019-08-02 06:30] VITALS: BP 170/74; PULSE 84; RESP 18; TEMP 96.7
[2019-08-02] MEDS: LACTATED RINGERS 1,000 ML IV SCH ×2 (06:31→07:25)
[2019-08-02 06:36] LABS: Glucose,Whole Blood 67 mg/dL (75-99)
[2019-08-02 07:04] LABS: Glucose,Whole Blood 73 mg/dL (75-99)
--- NOTE | 2019-08-02 08:03 | P.HPADDEND ---
H&P Addendum H&P Addendum Date: 08/02/19 Patient came in and did not notify pre-anesthesia testing or my office of recent angioplasty of his leg done less than 2 weeks ago. He reports moderate thigh and leg claudication and is pending additional procedures with his plastic surgeon. He did not discontinue Plavix and and Aspirin as he had recent angioplasty. Patient advised to follow-up with his vascular surgeon as he should not discontinue his current medications. Case will be re-scheduled.
== END | disposition home or self-care (01) ==
LOC: OR 05:32
PROVIDERS: ATTEND Surgery Plastic and Reconstructive Surgery
DX: K43.2 Incisional hernia without obstruction or gangrene (principal); Z53.09 Procedure and treatment not carried out because of other contraindication

== ENCOUNTER → 2019-10-18 | Day surgery (SDC) | payer MEDICARE, BC ==
[2019-10-17 11:10] VITALS: BMI 27.3
--- NOTE | 2019-10-17 19:26 | P.GSHP ---
History of Present Illness H&P Date: 10/18/19 CHIEF COMPLAINT: Ventral hernia HISTORY OF PRESENT ILLNESS: The patient is a 73-year-old male who presents with a history of swelling and pain along the abdomen from a hernia. Now he presents for surgical intervention. PAST MEDICAL HISTORY: Please see list. PAST SURGICAL HISTORY: Please see list. MEDICATIONS: Please see list. ALLERGIES: Please see list. SOCIAL HISTORY: No illicit drug use FAMILY HISTORY: No reports of Crohn disease or ulcerative colitis. REVIEW OF ORGAN SYSTEMS: CONSTITUTIONAL: No reports of fevers or chills. No reports of weight loss despite prior attempts. GI: Denies any blood in stools or constipation. PHYSICAL EXAM: VITAL SIGNS: Stable GENERAL: Well-developed pleasant male in no acute distress. HEENT: No scleral icterus. Extraocular movements grossly intact. Moist buccal mucosa. NECK: Supple without lymphadenopathy. CHEST: Unlabored respirations. Equal bilateral excursions. CARDIOVASCULAR: Regular rate and rhythm. Distal 2+ pulses. ABDOMEN: Soft, nondistended. Palpable defect of the abdomen. No peritoneal signs. MUSCULOSKELETAL: No clubbing, cyanosis, or edema. ASSESSMENT: 1. Ventral hernia PLAN: 1. Recommend proceeding with robotic ventral hernia repair with mesh. 2. Benefits and risks of surgical intervention was discussed including possibility of open technique. 3. DVT prophylaxis. 4. Antibiotic prophylaxis. Past Medical History Past Medical History: Diabetes Mellitus, Hyperlipidemia, Hypertension, Vascular Disorder Additional Past Medical History / Comment(s): Insulin pump, Neuropathy feet., PVD with stents., sciatic nerve pain., hernia History of Any Multi-Drug Resistant Organisms: None Reported Past Surgical History: Tonsillectomy Additional Past Surgical History / Comment(s): Bilateral leg bypass surgery, cataracts. 08/22/18 LT SFA PTBA. 09/05/2018 Stent RSFA. arthrectomy & balloon angioplast right leg (07/2019) Past Anesthesia/Blood Transfusion Reactions: No Reported Reaction Past Psychological History: No Psychological Hx Reported Smoking Status: Former smoker Past Alcohol Use History: None Reported Additional Past Alcohol Use History / Comment(s): Smoked for 20 yrs, quit smoking 15 yrs ago, 1 PPD. Past Drug Use History: None Reported - Past Family History Mother Family Medical History: No Reported History Medications and Allergies Home Medications Medication Instructions Recorded Confirmed Type Aspirin [Adult Low Dose Aspirin EC] 81 mg PO DAILY 06/29/18 10/17/19 History Atorvastatin [Lipitor] 40 mg PO HS 06/29/18 10/17/19 History Clopidogrel [Plavix] 75 mg PO DAILY 06/29/18 10/17/19 History Empagliflozin [Jardiance] 25 mg PO QAM 06/29/18 10/17/19 History Finasteride [Proscar] 5 mg PO BID 06/29/18 10/17/19 History Gabapentin [Neurontin] 300 mg PO TID 06/29/18 10/17/19 History INSULIN LISPRO (For Pump) [humaLOG 0.01 units SQ-PUMP CONTINUOUS 06/29/18 10/17/19 History (For Pump)] Quinapril/Hydrochlorothiazide 1 tab PO DAILY 06/29/18 10/17/19 History [Quinapril-Hctz 20-12.5 mg Tab] amLODIPine BESYLATE [Norvasc] 5 mg PO QAM 06/29/18 10/17/19 History INSULIN LISPRO (For Pump) [humaLOG 5 units SQ-PUMP TID-W/MEALS 10/17/19 10/17/19 History (For Pump)] metFORMIN HCL [Glucophage] 1,000 mg PO BID 10/17/19 10/17/19 History Allergies Allergy/AdvReac Type Severity Reaction Status Date / Time No Known Allergies Allergy Verified 10/17/19 10:38
[~2019-10-18] MED LIST changes: +ACETAMINOPHEN TAB 500 MG TAB PO STA; +BUPIVACAIN-EPI 0.25%-1:200,000 30 ML VIAL SQ ONE; +DEXAMETHASONE SOD PHOSPHATE 10 MG/ML 1 ML VIAL IV ONE; +GABAPENTIN 300 MG CAP PO STA; +GLYCOPYRROLATE 0.2 MG/ML 2 ML VIAL ONE; +HYDROmorphone (PF) 1 MG/ML ONE; +INSULIN ASPART (NovoLOG) 100 UNIT/ML VIAL SQ ONE; +KETOROLAC 30 MG/ML 1 ML VIAL ONE; +LACTATED RINGERS 1,000 ML IV ONE; -LIDOCAINE 1% 20 ML VIAL (10MG/ML) FOR IV START INTRADERMA ONE; +LIDOCAINE 1% 20 ML VIAL (10MG/ML) FOR IV START INTRADERMA PRN; +LIDOCAINE 1% INJ 10MG/ML (20 ML MDV) ONE; -MIDAZOLAM 2 MG/2 ML VIAL IV PRN; +MIDAZOLAM 2 MG/2 ML VIAL IVP ONE; +MIDAZOLAM 2 MG/2 ML VIAL ONE; +NEOSTIGMINE 1 MG/ML 10 ML VIAL ONE; +PROPOFOL 10 MG/ML 20 ML VIAL IV ONE; +ROCURONIUM BROMIDE 10 MG/ML 10 ML VIAL IV ONE; +ROPIVACAINE 5 MG/ML 30 ML VIAL ONE; +SUCCINYLCHOLINE CHLORIDE 100 MG/5 ML SYR IV ONE; +TAMSULOSIN 0.4 MG CAP.ER.24H PO STA; +ePHEDrine SULFATE/0.9% NACL/PF 50 MG/5 ML SYRINGE IV ONE; +fentaNYL (PF) 50 MCG/ML 2 ML AMP IV ONE; +fentaNYL (PF) 50 MCG/ML 2 ML AMP IV PRN; +fentaNYL (PF) 50 MCG/ML 2 ML AMP ONE
[2019-10-18 08:03] LABS: Glucose,Whole Blood 128 mg/dL (75-99)
[2019-10-18] MEDS: LACTATED RINGERS 1,000 ML IV SCH ×3 (08:03→12:41)
[2019-10-18 08:17] LABS: HCT 46.6 % (39.0-53.0); MCH 29.8 pg (25.0-35.0); MCHC 32.2 g/dL (31.0-37.0); MCV 92.6 fL (80.0-100.0); Mean Platelet Volume 9.3; Platelet Count 180 k/uL (150-450); RBC 5.03 m/uL (4.30-5.90); RDW 13.3 % (11.5-15.5); WBC 6.8 k/uL (3.8-10.6)
[2019-10-18 08:26] LABS: Potassium 4.8 mmol/L (3.5-5.1)
--- NOTE | 2019-10-18 08:50 | P.ANPRN ---
Procedure Note - Anesthesia - Nerve Block Performed Bilateral Rectus Abdominis Single Time Out Performed: Yes Date of Procedure: 10/18/19 Procedure Start Time: 08:28 Procedure Stop Time: 08:37 Location of Patient: PreOp Indication: Requested by Surgeon Specifically requested for management of pain by DrMckenzie: Joan Dillon Sedation Type: Sedate with meaningful contact maintained Preparation: Sterile Prep Position: Supine Needle Types: Pajunk Needle Gauge: 21 Ultrasound used to visualize needle placement: Yes Ultrasound used to observe medication spread: Yes Injectate: 0.5% Ropivacaine (see comment for volume) (20 ml for each side) Blood Aspirated: No Pain Paresthesia on Injection Noted: No Resistance on Injection: Normal Image Stored and Saved: Yes Events: Uneventful and Well Tolerated
--- NOTE | 2019-10-18 11:03 | P.OP ---
Date of Procedure: 10/18/19 Description of Procedure: SURGEON: JOAN DILLON MD PREOPERATIVE DIAGNOSES: 1. Initial incisional ventral hernia with incarceration 2. Peripheral vascular occlusive disease 3. Benign prostatic disorder with lower obstructive urinary symptoms 4. Hypertensive heart disease 5. Diabetes type 2, insulin-dependent 6. Diabetic neuropathy 7. Chronic antiplatelet therapy 8. Insulin pump status POSTOPERATIVE DIAGNOSES: 1. Initial incisional ventral hernia x 4 with incarceration with obstruction without gangrene involving transverse mesocolon 2. Peripheral vascular occlusive disease 3. Benign prostatic disorder with lower obstructive urinary symptoms 4. Hypertensive heart disease 5. Diabetes type 2, insulin-dependent 6. Diabetic neuropathy 7. Chronic antiplatelet therapy 8. Insulin pump status 9. Peritoneal adhesions greater omentum to abdominal wall OPERATION: 1. Robotic-assisted da Mack Xi laparoscopic repair of initial incarcerated incisional ventral hernia 8 x 5 cm with mesh, ventralight ST mesh 10 x 15 cm 2. Robotic-assisted da Mack Xi laparoscopic lysis of adhesions over 45 minutes Anesthesia: GETA, regional, local Estimated Blood Loss (ml): 10 Pathology: None COMPLICATIONS: None. Operative Findings: 1. Upper midline and left epigastric ventral hernia defects x 4, measuring 8 x 5 cm 2. Fascia repaired using #1 V-lock suture x 3 fascial imbrication INDICATIONS: The patient is a 73-year-old male who presents with a personal history of multiple abdominal wall hernias. Surgical intervention with laparoscopic versus robotic and open techniques were reviewed. Placement of mesh was also reviewed. Benefits and risks were thoroughly described. Informed consent was obtained. DESCRIPTION OF PROCEDURE: The patient was brought into the operating room and laid in supine position. After general induction, the abdomen had been prepped and draped in standard sterile fashion. Ioban draping was also placed. Prior to incision, a timeout protocol was confirmed with surgical team regarding the patient's name including procedures to be performed. The robot was primed prior to the procedure. A field block using local anesthetic was placed along hernia site including the proposed port sites. Initial incision was made with an #11 blade along the left upper quadrant. A 0 degree 5 mm laparoscopic trocar entry was performed and insufflated. Three 8 mm ports were placed along the right lateral abdominal wall under direct localization after exchanging the 5-mm for an 8 mm port. Placements of the ports were 15 cm from the target anatomy and 10 cm apart. An accessory 12 mm port was placed at the left upper quadrant for exchange of mesh including sutures. The da Mack Xi robot was previously primed, prepped and draped then docked from the right side of the patient onto the right side of the patient. I then sat at the robot Da Mack Xi console where working arms of the robot including Bovie cautery connected to robotic scissors, needle ambulance driver paramedic, and graspers placed by the lead dental assistant. Greater omentum to abdominal wall peritoneal adhesions were found and addressed for 45 minutes using vessel sealer and scissors with cautery. Incarcerated omental contents involving the transverse mesocolon with intermittent obstruction were found along the upper midline defect including left upper abdomen. The defects were reduced. Four (4) distinct fascial defects were found of the upper midline extending to the left upper quadrant. The incarcerated contents were reduced as the peritoneal fat was cleaned from the abdominal wall. Next, hemostasis was checked with cautery and vessel sealer. The hernia defects were oversewn using #1 nonabsorbable V-lock suture with fascial imbrication x 3. Next, ventralight ST mesh 10 x 15 cm was placed with the rough side towards the abdominal wall as to cover the epigastric including umbilical defect. 2-0 VLOC 9 inch sutures were used to fixate the mesh. A final endoscopic imaging was obtained. All instruments and pneumoperitoneum were evacuated from the abdominal cavity. The da Mack Xi robot was undocked from the patient. I re-scrubbed into the case for closure of incisions. The fascia of the 12-mm port was probed and less than 8-mm in size. The incisions were reapproximated using 4-0 Monocryl in an interrupted subcuticular fashion. Liquid glue was applied to the skin after cleansing the skin with normal saline and dilute hydrogen peroxide. An abdominal binder was placed. At the end of the procedure, needle, sponge, and instrument count had been verified correct by surgical services director. The patient was taken to the postanesthesia care unit in stable condition. Plan - Discharge Summary Discharge Rx Participant: Yes New Discharge Prescriptions: New RX: Ibuprofen [Motrin] 600 mg PO Q8HR PRN #30 tab PRN Reason: Pain Acetaminophen Tab [Tylenol Tab] 500 mg PO Q6H PRN #30 tablet PRN Reason: Pain No Action RX: Clopidogrel [Plavix] 75 mg PO DAILY RX: Gabapentin [Neurontin] 300 mg PO TID RX: Atorvastatin [Lipitor] 40 mg PO HS RX: Aspirin [Adult Low Dose Aspirin EC] 81 mg PO DAILY RX: Quinapril/Hydrochlorothiazide [Quinapril-Hctz 20-12.5 mg Tab] 1 tab PO DAILY RX: Finasteride [Proscar] 5 mg PO BID RX: amLODIPine BESYLATE [Norvasc] 5 mg PO QAM RX: Empagliflozin [Jardiance] 25 mg PO QAM RX: INSULIN LISPRO (For Pump) [humaLOG (For Pump)] 0.01 units SQ-PUMP CONTINUOUS metFORMIN HCL [Glucophage] 1,000 mg PO BID INSULIN LISPRO (For Pump) [humaLOG (For Pump)] 5 units SQ-PUMP TID-W/MEALS Discharge Medication List RX: Aspirin [Adult Low Dose Aspirin EC] 81 mg PO DAILY 06/29/18 [History] RX: Atorvastatin [Lipitor] 40 mg PO HS 06/29/18 [History] RX: Clopidogrel [Plavix] 75 mg PO DAILY 06/29/18 [History] RX: Empagliflozin [Jardiance] 25 mg PO QAM 06/29/18 [History] RX: Finasteride [Proscar] 5 mg PO BID 06/29/18 [History] RX: Gabapentin [Neurontin] 300 mg PO TID 06/29/18 [History] RX: INSULIN LISPRO (For Pump) [humaLOG (For Pump)] 0.01 units SQ-PUMP CONTINUOUS 06/29/18 [History] RX: Quinapril/Hydrochlorothiazide [Quinapril-Hctz 20-12.5 mg Tab] 1 tab PO DAILY 06/29/18 [History] RX: amLODIPine BESYLATE [Norvasc] 5 mg PO QAM 06/29/18 [History] INSULIN LISPRO (For Pump) [humaLOG (For Pump)] 5 units SQ-PUMP TID-W/MEALS 10/17/19 [History] metFORMIN HCL [Glucophage] 1,000 mg PO BID 10/17/19 [History] Acetaminophen Tab [Tylenol Tab] 500 mg PO Q6H PRN #30 tablet 10/18/19 [Rx] RX: Ibuprofen [Motrin] 600 mg PO Q8HR PRN #30 tab 10/18/19 [Rx] Follow up Appointment(s)/Referral(s): Joan Dillon MD [STAFF PHYSICIAN] - 10/22/19 3:00 pm Patient Instructions/Handouts: *Surgery [facility] - (Anesthesia) Discharge Instructions Outpatient Surgery, Abdominal Binder (DC), Incisional Hernia (DC) Activity/Diet/Wound Care/Special Instructions: No lifting for 4 pounds in 4 weeks, Nov 18January shower. No bathtub soaks for 2 weeks, Nov 01. Wear abdominal binder daily for comfort except for showering. DO NOT TAKE NORCO AND XANAX TOGETHER. DO NOT DRIVE WHILE ON NARCOTICS. Discharge Disposition: HOME SELF-CARE
[2019-10-18 11:17] VITALS: TEMP 97.1
[2019-10-18 11:54] LABS: Glucose,Whole Blood 222 mg/dL (75-99)
[2019-10-18 12:30] LABS: Glucose,Whole Blood 242 mg/dL (75-99)
[2019-10-18 13:14] LABS: Glucose,Whole Blood 203 mg/dL (75-99)
[2019-10-18 13:29] VITALS: BP 117/54; PULSE 75; RESP 16
== END | disposition home or self-care (01) ==
LOC: OR 07:08
PROVIDERS: ATTEND Surgery Plastic and Reconstructive Surgery
DX: K43.6 Other and unspecified ventral hernia with obstruction, without gangrene (principal); K66.0 Peritoneal adhesions (postprocedural) (postinfection); E11.51 Type 2 diabetes mellitus with diabetic peripheral angiopathy without gangrene; E11.42 Type 2 diabetes mellitus with diabetic polyneuropathy; N40.1 Benign prostatic hyperplasia with lower urinary tract symptoms; N13.8 Other obstructive and reflux uropathy; E78.5 Hyperlipidemia, unspecified; I11.9 Hypertensive heart disease without heart failure; M54.30 Sciatica, unspecified side; Z95.820 Peripheral vascular angioplasty status with implants and grafts; Z79.4 Long term (current) use of insulin; Z96.41 Presence of insulin pump (external) (internal); Z79.82 Long term (current) use of aspirin; Z79.02 Long term (current) use of antithrombotics/antiplatelets; Z87.891 Personal history of nicotine dependence; Z98.890 Other specified postprocedural states; Z98.49 Cataract extraction status, unspecified eye
CPT/HCPCS: 93005; 64488; 80051; 85027; 49655; 49329; C1781; J2250; J1644; J1100; J2710; J0690; J2405; J2001; J3010; J1885; J1170 ×2; J2795; J0330; J2704

== ENCOUNTER 2021-02-24 07:00 | Day surgery (SDC) | payer MEDICARE, BC ==
[2021-02-22 15:21] VITALS: BMI 25.8
[~2021-02-24 07:00] MED LIST changes: -ACETAMINOPHEN TAB 500 MG TAB PO STA; -BUPIVACAIN-EPI 0.25%-1:200,000 30 ML VIAL SQ ONE; -DEXAMETHASONE SOD PHOSPHATE 10 MG/ML 1 ML VIAL IV ONE; -GABAPENTIN 300 MG CAP PO STA; -GLYCOPYRROLATE 0.2 MG/ML 2 ML VIAL ONE; -HEPARIN SODIUM,PORCINE 5,000 UNIT/ML 1 ML VIAL SQ ONE; -HYDROmorphone (PF) 1 MG/ML ONE; -HYDROmorphone 0.5 MG/0.5 ML SYRINGE IVP PRN; -INSULIN ASPART (NovoLOG) 100 UNIT/ML VIAL SQ ONE; -KETOROLAC 30 MG/ML 1 ML VIAL ONE; -LACTATED RINGERS 1,000 ML IV ONE; -LIDOCAINE 1% 20 ML VIAL (10MG/ML) FOR IV START INTRADERMA PRN; -LIDOCAINE 1% INJ 10MG/ML (20 ML MDV) ONE; -MIDAZOLAM 2 MG/2 ML VIAL IVP ONE; -MIDAZOLAM 2 MG/2 ML VIAL ONE; -NEOSTIGMINE 1 MG/ML 10 ML VIAL ONE; -ONDANSETRON 4 MG/2 ML VIAL IVP ONE; -PROPOFOL 10 MG/ML 20 ML VIAL IV ONE; -ROCURONIUM BROMIDE 10 MG/ML 10 ML VIAL IV ONE; -ROPIVACAINE 5 MG/ML 30 ML VIAL ONE; +SODIUM CHLORIDE 0.9% 1,000 ML in EMPTY BAG 1 BAG IV ONE; -SUCCINYLCHOLINE CHLORIDE 100 MG/5 ML SYR IV ONE; -TAMSULOSIN 0.4 MG CAP.ER.24H PO STA; -ePHEDrine SULFATE/0.9% NACL/PF 50 MG/5 ML SYRINGE IV ONE; -fentaNYL (PF) 50 MCG/ML 2 ML AMP IV ONE; -fentaNYL (PF) 50 MCG/ML 2 ML AMP IV PRN; -fentaNYL (PF) 50 MCG/ML 2 ML AMP ONE
[2021-02-24] MEDS ORDERED: SODIUM CHLORIDE 0.9% 1,000 ML IV ONE (07:22)
[2021-02-24] MEDS ORDERED: lisinopriL 20 MG TAB PO ONE (07:29)
[2021-02-24] MEDS ORDERED: hydroCHLOROthiazide 12.5 MG CAP PO ONE (07:30)
[2021-02-24 07:35] LABS: Glucose,Whole Blood 175 mg/dL (75-99)
[2021-02-24 07:35] LABS: Basophils # (A) 0.1 k/uL (0-0.2); Basophils % (A) 1 %; Eosinophils # (A) 0.3 k/uL (0-0.7); Eosinophils % (A) 3 %; HCT 45.1 % (39.0-53.0); HGB 15.4 gm/dL (13.0-17.5); Lymphocytes # (A) 1.9 k/uL (1.0-4.8); Lymphocytes % (A) 21 %; MCH 30.9 pg (25.0-35.0); MCHC 34.2 g/dL (31.0-37.0); MCV 90.2 fL (80.0-100.0); Mean Platelet Volume 9.4; Monocytes # (A) 0.7 k/uL (0-1.0); Monocytes % (A) 8 %; Neutrophils # (A) 5.8 k/uL (1.3-7.7); Neutrophils % (A) 65 %; Platelet Count 198 k/uL (150-450); RDW 13.7 % (11.5-15.5); WBC 8.9 k/uL (3.8-10.6)
[2021-02-24 07:36] VITALS: RESP 16; TEMP 98
[2021-02-24 07:49] LABS: Calcium 9.6 mg/dL (8.4-10.2)
[2021-02-24 07:54] LABS: Potassium 5.2 mmol/L (3.5-5.1)
[2021-02-24] MEDS ORDERED: MIDAZOLAM 2 MG/2 ML VIAL IV ONE (09:44)
[2021-02-24] MEDS ORDERED: LIDOCAINE 1% INJ 10MG/ML (20 ML MDV) SQ ONE ×3 (09:49→10:04)
[2021-02-24] MEDS ORDERED: HYDROmorphone 1 MG/ML 1 ML SYRINGE IVP ONE (09:52)
[2021-02-24] MEDS ORDERED: VERAPAMIL SYRINGE (5 MG/10 ML) INTRAARTER ONE (10:07)
[2021-02-24] MEDS ORDERED: IOPAMIDOL-250 100ML BTL INTRAARTER ONE (10:17)
[2021-02-24] MEDS ORDERED: SODIUM CHLORIDE 0.9% 1,000 ML IV SCH (10:30)
[2021-02-24 10:37] LABS: Glucose,Whole Blood 149 mg/dL (75-99)
--- NOTE | 2021-02-24 10:54 | AN ---
ANGIOGRAPHY REPORT DATE OF SERVICE: February 24, 2021. PERFORMING PHYSICIAN: Elier Tanner MD. PROCEDURE PERFORMED: 1. An abdominal aortogram. 2. Bilateral lower extremities runoff. INDICATIONS: CLI. COMPLICATION: None. LEVEL OF SEDATION: Moderate with sedation length of 29 minutes. PROCEDURE DESCRIPTION: After obtaining an informed consent, the patient was brought to the cardiac recyclable materials sorter. The right radial artery was cannulated using micropuncture technique and a micropuncture wire passed easily then I placed a 5-Dominican sheath. I gave the patient 2 mg of verapamil IA. An abdominal aortogram and bilateral lower extremities runoff were performed using 5- Dominican pigtail catheter which was initially placed at the level of the renal arteries then it was pulled into above the bifurcation of the aorta to right and left common iliac arteries. The procedure was completed without any complication. SELECTIVE PERIPHERAL ANGIOGRAM: 1. The aorta appeared to have mild disease only. 2. Common Iliac Arteries: The right common iliac artery is occluded and the left common iliac artery is stented and the stent is patent. 3. External Iliac Arteries: The right external iliac artery is occluded and left external iliac artery is patent. 4. Internal Iliac Arteries: Right internal iliac artery is occluded. Left internal iliac artery is patent. 5. Common Femoral Arteries: The right and left common femoral arteries appear to be angiographically normal. 6. Fem-fem: The right to left fem-fem bypass is patent. 7. The right SFA is occluded in the mid segment and the left SFA has mild to moderate diffuse disease. 8. Popliteal: The right popliteal has severe disease and left popliteal appeared to be patent. 9. Below the knee: There are 3 vessels runoff below the knee bilaterally. CONCLUSION: 1. Patent [id number] fem-fem bypass. 2. Occluded right popliteal and right SFA. POSTPROCEDURE MANAGEMENT: GROUND WATER TECHNICIAN of the right popliteal and right SFA. MMODL / IJN: [id number] /
--- NOTE | 2021-02-24 11:00 | IR ---
Fluoroscopy HISTORY: Pain 4.6 minutes fluoroscopy time supplied to the referring clinician. 177 intraoperative C-arm images do cument the procedure. See dictated report from cardiology.
[2021-02-24 14:45] VITALS: BP 137/63; PULSE 62
== END 2021-02-24 14:59 | disposition home or self-care (01) ==
LOC: CATHCVL 07:00
PROVIDERS: ATTEND Internal Medicine Interventional Cardiology
DX: E11.51 Type 2 diabetes mellitus with diabetic peripheral angiopathy without gangrene (principal); I70.221 Atherosclerosis of native arteries of extremities with rest pain, right leg; I10 Essential (primary) hypertension; E78.5 Hyperlipidemia, unspecified; Z20.822 Contact with and (suspected) exposure to COVID-19; Z95.820 Peripheral vascular angioplasty status with implants and grafts; Z87.891 Personal history of nicotine dependence; Z98.890 Other specified postprocedural states; Z79.84 Long term (current) use of oral hypoglycemic drugs; Z79.02 Long term (current) use of antithrombotics/antiplatelets; Z79.82 Long term (current) use of aspirin; Z79.899 Other long term (current) drug therapy
CPT/HCPCS: 36200; 75625; 75716; 80048; 85025; 87635; C1769 ×4; C1894; J2250; J2001; J1170; Q9966

== ENCOUNTER 2021-03-24 09:10 | Day surgery (SDC) | payer MEDICARE, BC ==
[2021-03-22 11:46] VITALS: BMI 26.5
[~2021-03-24 09:10] MED LIST changes: +ASPIRIN 325 MG TAB PO PRN
[2021-03-24 09:38] VITALS: RESP 16; TEMP 96.3
[2021-03-24 09:46] LABS: Glucose,Whole Blood 111 mg/dL (75-99)
[2021-03-24] MEDS ORDERED: MIDAZOLAM 2 MG/2 ML VIAL IV ONE (10:23)
[2021-03-24] MEDS ORDERED: SODIUM CHLORIDE 0.9% 500 ML 500 ML with niCARdipine 6.25 MG, NITROGLYCERIN-D5W PMX 0.05... IV ONE ×8 (10:25→12:15)
[2021-03-24] MEDS ORDERED: HYDROmorphone 1 MG/ML 1 ML SYRINGE IVP ONE (10:27)
[2021-03-24] MEDS ORDERED: LIDOCAINE 1% INJ 10MG/ML (20 ML MDV) SQ ONE (10:27)
[2021-03-24] MEDS: fentaNYL (PF) 50 MCG/ML 2 ML AMP IV ONE ×3 (11:00→11:50)
[2021-03-24] MEDS: MIDAZOLAM 2 MG/2 ML VIAL IV ONE ×2 (11:05→12:00)
[2021-03-24] MEDS ORDERED: SODIUM CHLORIDE 0.9% 500 ML 500 ML with niCARdipine 6.25 MG, NITROGLYCERIN-D5W PMX 0.05... IV STA ×4 (11:59)
[2021-03-24] MEDS ORDERED: niCARdipine Syringe (1,000 mcg/10 mL) INTRAARTER ONE (12:05)
[2021-03-24] MEDS ORDERED: NITROGLYCERIN 1000MCG/10ML SYRINGE INTRAARTER ONE (12:05)
[2021-03-24] MEDS ORDERED: HYDROmorphone 0.5 MG/0.5 ML SYRINGE IVP ONE (12:18)
[2021-03-24] MEDS ORDERED: IOPAMIDOL-250 100ML BTL INTRAARTER ONE (12:50)
[2021-03-24] MEDS ORDERED: CLOPIDOGREL 75 MG TAB PO ONE (12:50)
[2021-03-24] MEDS ORDERED: SODIUM CHLORIDE 0.9% 1,000 ML in EMPTY BAG 1 BAG IV SCH (13:15)
[2021-03-24] MEDS ORDERED: hydrALAZINE HCL 20 MG/ML 1 ML VIAL IVP STA (14:00)
[2021-03-24] MEDS ORDERED: hydrALAZINE HCL 20 MG/ML 1 ML VIAL ONE (14:04)
--- NOTE | 2021-03-24 14:06 | LTR ---
DATE OF SERVICE: 03/24/[address] Cheatham: Mr. Addison Reyes underwent today successful opening and occluded right popliteal and right femoral artery with good angiographic results and without any complication. I want to thank you for allowing me to participate in his care and please do not hesitate to call if you have any questions or concerns. Sincerely, MARCO / JOSE MARIAN: [id number] /
--- NOTE | 2021-03-24 14:15 | AN ---
ANGIOGRAPHY REPORT DATE OF SERVICE: March 24, 2021. PERFORMING PHYSICIAN: Elier Tanner MD. PROCEDURE PERFORMED: 1. Atherectomy of the right popliteal artery using the orbital atherectomy device from [employer] and using 1.5 mm solid blanca. 2. Successful stenting of the right popliteal artery using 6.0 x 80 mm Zilver PTX drug- coated stent with an excellent angiographic results. 3. Successful balloon angioplasty of the right SFA using a drug-coated balloon with an excellent angiographic results. 4. Intravascular ultrasound (IVUS) of the right SFA and right popliteal. 5. Selective angiogram of the right posterior tibial artery and right popliteal and right SFA. 6. Ultrasound-guided access of the right posterior tibial artery. INDICATION: This is a very pleasant 75-year-old gentleman who was experiencing symptoms of critical limb ischemia with resting pain. He is known to have PAD with prior [id number] fem- fem bypass and multiple angioplasty of the right SFA. APPROACH: Right posterior tibial artery. COMPLICATION: None. LEVEL OF SEDATION: Moderate with sedation length of 2 hours and 11 minutes. PROCEDURE DESCRIPTION: After obtaining an informed consent, the patient was brought to the cardiac laborer heading. The right posterior tibial artery was cannulated using micropuncture technique, under ultrasound guidance, the micropuncture wire passed easily. Then I placed an 11 cm 5/6 slender sheath at the right posterior tibial artery. At that point, a cocktail containing heparin as well as verapamil as well as nitroglycerin was connected to the side-arm of the sheath with continuous infusion. Subsequently, I did give the patient also additional 6000 units of heparin IV. I did selective right posterior tibial artery angiogram to see the distal cap of the occluded SFA. After that, I was able to cross the chronic total occlusion of the right popliteal artery and right SFA and advance the wire all the way to the right common femoral artery. I did advance the catheter over the wire and I injected through the catheter to prove that I was in the true lumen. After that I did exchange my 018 wire into 014 wire, where I did intravascular ultrasound to prove that I was in the true lumen. Subsequently, atherectomy of the right popliteal was performed using the orbital atherectomy device and using 1.5 mm blanca. After that, I did balloon angioplasty of the right popliteal using 5 mm Chocolate balloon and for the right SFA using 6 mm Chocolate balloon. The following angiogram for the right SFA showed excellent angiographic results, so I decided to end doing drug coated balloon which was 6 mm balloon. The final angiogram showed great angiographic results. For the right popliteal, the following angiogram after the chocolate balloon showed dissection seems to be concerning and possibly flow- limiting, which I decided to cover with a stent so I deployed a 6.0 x 80 mm Zilver PTX drug-coated stent where the stent was positioned under fluoroscopy guidance and deployed under its nominal pressure. The following angiogram showed excellent angiographic results and the procedure was completed without any complication. POSTPROCEDURE MANAGEMENT: 1. Dual anti-platelet therapy. 2. Aggressive cholesterol control. 3. Risk factor modifications. 4. Follow up with the patient. MMOSMIN / JOSE MARIAN: [id number] /
[2021-03-24 14:41] VITALS: PULSE 68
[2021-03-24] MEDS ORDERED: GABAPENTIN 300 MG CAP PO STA (15:15)
--- NOTE | 2021-03-24 15:19 | IR ---
Fluoroscopy HISTORY: Peripheral vascular occlusive disease 44.7 minutes fluoroscopy time supplied to the referring clinician. 396 intraoperative C-arm images d ocument the procedure. See dictated report from cardiology.
[2021-03-24] MEDS ORDERED: GABAPENTIN 300 MG CAP PO SCH (16:00)
[2021-03-24 16:36] LABS: Glucose,Whole Blood 147 mg/dL (75-99)
[2021-03-24] MEDS ORDERED: FINASTERIDE 5 MG TAB PO SCH (17:00)
[2021-03-24 17:08] VITALS: BP 140/78
[2021-03-24] MEDS ORDERED: INSULIN LISPRO (For Pump) 100 UNIT/ML VIAL SQ-PUMP SCH (17:30)
[2021-03-25] MEDS ORDERED: [UNRECOGNIZED DRUG - OTHER] PO SCH (09:00)
[2021-03-25] MEDS ORDERED: HYDROCHLOROTHIAZIDE PO SCH (09:00)
[2021-03-25] MEDS ORDERED: CLOPIDOGREL 75 MG TAB PO SCH (09:00)
[2021-03-25] MEDS ORDERED: NON FORMULARY DRUG (Empagliflozin [Jardiance] 25 MG Tablet) PO SCH (09:00)
[2021-03-25] MEDS ORDERED: QUINAPRIL PO SCH (09:00)
[2021-03-25] MEDS ORDERED: NON FORMULARY DRUG (Aspirin [Adult Low Dose Aspirin Ec] 81 MG Tablet.Dr) PO SCH (09:00)
== END 2021-03-24 16:53 | disposition home or self-care (01) ==
LOC: CATHCVL 09:10
PROVIDERS: ATTEND Internal Medicine Interventional Cardiology
DX: E11.51 Type 2 diabetes mellitus with diabetic peripheral angiopathy without gangrene (principal); I70.221 Atherosclerosis of native arteries of extremities with rest pain, right leg; Z87.891 Personal history of nicotine dependence; E78.5 Hyperlipidemia, unspecified; Z95.820 Peripheral vascular angioplasty status with implants and grafts; Z20.822 Contact with and (suspected) exposure to COVID-19; Z98.890 Other specified postprocedural states; Z79.84 Long term (current) use of oral hypoglycemic drugs; Z79.02 Long term (current) use of antithrombotics/antiplatelets; Z79.82 Long term (current) use of aspirin; Z79.899 Other long term (current) drug therapy
CPT/HCPCS: 37227; 37252; 84132; 87635; C1894 ×2; C1769 ×7; C1714; C1725 ×3; C1753; C2623 ×2; C1874; J2250; J0360; J1644 ×2; J2001; J3010; J1170 ×2; Q9966

== ENCOUNTER → 2021-06-25 | Outpatient (CLI) | payer MEDICARE, BC ==
--- NOTE | 2021-06-25 13:53 | US ---
EXAMINATION TYPE: US thyroid st tissue head/neck DATE OF EXAM: 06/25/2021 COMPARISON: NONE CLINICAL HISTORY: E04.9 Goiter. GLAND SIZE: Right Lobe: 6.6x2.7x3.2 cm Overall Parenchyma: homogenous Left Lobe: 4.9x1.8x2.3 cm Overall Parenchyma: homogeneous Isthmus Thickness: 0.5 cm NODULES RIGHT: # of nodules measured on right: 1 1. 5.0 X 2.5 x 3.2 cm, mid mid, solid or almost completely solid, hypoechoic nodule, which is wider than tall, with smooth margins, with echogenic foci. LEFT: # of nodules measured on left: 1 1. 0.5 X 0.3 x 0.4 cm, lower mid, cystic or almost completely cystic, anechoic nodule, which is wid er than tall, with smooth margins, without echogenic foci. ISTHMUS: # of nodules measured in the isthmus: 0 Bilateral neck scanned, no evidence of lymphadenopathy. IMPRESSION: Enlargement of the right thyroid lobe with a large solid nodule left. Tissue diagnosis should be cons idered.
== END | disposition home or self-care (01) ==
LOC: RADUSWWP 13:13
PROVIDERS: ATTEND Family Medicine
DX: E04.2 Nontoxic multinodular goiter (principal)
CPT/HCPCS: 76536

== ENCOUNTER → 2021-06-25 | Outpatient (CLI) | payer MEDICARE, BC ==
--- NOTE | 2021-06-25 14:46 | CT ---
EXAMINATION TYPE: CT abdomen pelvis wo con DATE OF EXAM: 06/25/2021 HISTORY: Left sided pain with prior hernia surgeries. Diverticulitis per order. CT DLP: 581.8 mGycm. Automated Exposure Control for Dose Reduction was Utilized. TECHNIQUE: CT scan of the abdomen and pelvis is performed without oral or IV contrast. COMPARISON: Prior CT April 23, 2019 FINDINGS: Within the limitations of a non-contrast study, the following observations are made. LUNG BASES: Coronary artery calcification is redemonstrated. LIVER/GB: Gallbladder now surgically absent. PANCREAS: No significant abnormality is seen. SPLEEN: No significant abnormality is seen. ADRENALS: No significant abnormality is seen. KIDNEYS: Some cortical volume loss bilaterally. Nonobstructing 5 mm calculus lower pole left kidney r edemonstrated and stable. No new hydronephrosis. BOWEL: Suboptimal evaluation of bowel without enteric contrast. Stomach poorly distended and thus sub optimally evaluated. No suspicious small or large bowel dilatation. Normal-appearing appendix from ce cum in the right lower quadrant. Diverticula on the left and sigmoid colon. No CT evidence for acute diverticulitis. GENITAL ORGANS: Enlarged prostate consistent with BPH redemonstrated. LYMPH NODES: No new greater than 1cm abdominal or pelvic lymph nodes are appreciated. OSSEOUS STRUCTURES: Multilevel vacuum disc phenomenon. Facet arthropathy lower lumbar levels. Multile bruce spurring spine. OTHER: Interval repair of left-sided ventral wall hernia. Scar tissue in the midline of the anterior abdominal wall is redemonstrated. Slight prominence or eventration above umbilicus axial image 73 is unchanged from prior without definitive hernia defect. Persistent bifemoral stent graft. Severe calci fied plaque of the aorta extending into branch vessels is redemonstrated IMPRESSION: No new or acute findings evident on this study.
== END | disposition home or self-care (01) ==
LOC: RADCTMAIN 12:55
PROVIDERS: ATTEND Surgery Plastic and Reconstructive Surgery
DX: N20.0 Calculus of kidney (principal); Z98.890 Other specified postprocedural states
CPT/HCPCS: 74176

== ENCOUNTER 2021-07-16 08:25 | Day surgery (SDC) | payer MEDICARE, BC ==
[2021-07-16 08:58] VITALS: TEMP 98.2
[2021-07-16 08:59] LABS: Glucose,Whole Blood 164 mg/dL (75-99)
--- NOTE | 2021-07-16 09:43 | US ---
ULTRASOUND GUIDED FNA THYROID BIOPSY: CLINICAL HISTORY: 5 cm right thyroid nodule FINDINGS: The procedure was explained to the patient. The risks, complications, benefits and alternatives were discussed and any questions were answered. Informed consent was obtained. Patient was placed supin e on the ultrasound table and prepped and draped in the usual sterile fashion. Utilizing a 25 gauge needle, five passes were made into the requested 5 cm right thyroid nodule. Patient was stable throughout the procedure. Pathology is pending. All elements of maximal barrier technique were utilized. IMPRESSION: 1. Successful ultrasound guided FNA thyroid biopsy.
[2021-07-16 10:02] VITALS: BP 136/79; PULSE 95; RESP 16
== END 2021-07-16 09:55 | disposition home or self-care (01) ==
LOC: RADPROMAIN 08:25
PROVIDERS: ATTEND Surgery Plastic and Reconstructive Surgery
DX: E04.1 Nontoxic single thyroid nodule (principal)
CPT/HCPCS: 10005; 88173; 88305

== ENCOUNTER 2021-07-29 10:44 | Day surgery (SDC) | payer MEDICARE, BC ==
[2021-07-28 09:17] VITALS: BMI 27.1
--- NOTE | 2021-07-29 07:42 | P.GSHP ---
History of Present Illness H&P Date: 07/29/21 CHIEF COMPLAINT: Acute pilonidal cyst HISTORY OF PRESENT ILLNESS: The patient is a 75-year-old male who is swelling along the right buttock including personal history of pilonidal cyst. He presents with acute inflammation and pain over 2 weeks. He has failed outpatient treatment of antibiotics. He presents today for excision of pilonidal cyst. PAST MEDICAL HISTORY: Please see list. PAST SURGICAL HISTORY: Please see list. MEDICATIONS: Please see list. ALLERGIES: Please see list. SOCIAL HISTORY: No illicit drug use FAMILY HISTORY: No reports of Crohn disease or ulcerative colitis. REVIEW OF ORGAN SYSTEMS: CONSTITUTIONAL: No reports of fevers or chills. PHYSICAL EXAM: VITAL SIGNS: Stable GENERAL: Well-developed pleasant in no acute distress. HEENT: No scleral icterus. Extraocular movements grossly intact. Moist buccal mucosa. NECK: Supple without lymphadenopathy. CHEST: Unlabored respirations. Equal bilateral excursions. CARDIOVASCULAR: Regular rate and rhythm. Distal 2+ pulses. ABDOMEN: Soft, nontender, nondistended. MUSCULOSKELETAL: No clubbing, cyanosis, or edema. SKIN: Acute swelling and tenderness right buttock with erythema. ASSESSMENT: 1. 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 Recommend excision of pilonidal cyst Past Medical History Past Medical History: Diabetes Mellitus, Vascular Disorder Additional Past Medical History / Comment(s): Insulin pump, Neuropathy feet., PVD with stents., sciatic nerve pain., "toes on rt foot are red", History of Any Multi-Drug Resistant Organisms: None Reported Past Surgical History: Tonsillectomy Additional Past Surgical History / Comment(s): Bilateral leg bypass surgery, albino cataracts, atherectomy & balloon angioplast right leg (07/2019), Past Anesthesia/Blood Transfusion Reactions: No Reported Reaction Smoking Status: Former smoker - Past Family History Mother Family Medical History: No Reported History Medications and Allergies Home Medications Medication Instructions Recorded Confirmed Type Aspirin [Adult Low Dose Aspirin EC] 81 mg PO DAILY 06/29/18 07/28/21 History Empagliflozin [Jardiance] 25 mg PO QAM 06/29/18 07/28/21 History Finasteride [Proscar] 5 mg PO 1700 06/29/18 07/28/21 History Gabapentin [Neurontin] 300 mg PO TID 06/29/18 07/28/21 History Quinapril/Hydrochlorothiazide 1 tab PO DAILY 06/29/18 07/28/21 History [Quinapril-Hctz 20-12.5 mg Tab] INSULIN LISPRO (For Pump) [humaLOG 1 applicate SQ-PUMP TID-W/MEALS 10/17/19 07/28/21 History (For Pump)] metFORMIN HCL [Glucophage] 1,000 mg PO BID 10/17/19 07/28/21 History rOPINIRole HCL [Requip] 1 mg PO QAM 02/22/21 07/28/21 History Atorvastatin [Lipitor] 40 mg PO DAILY 03/24/21 07/28/21 History Allergies Allergy/AdvReac Type Severity Reaction Status Date / Time No Known Allergies Allergy Verified 07/28/21 09:07
[~2021-07-29 10:44] MED LIST changes: -ASPIRIN 325 MG TAB PO PRN; +DEXAMETHASONE SOD PHOSPHATE 4 MG/ML 1 ML VIAL IV ONE; +HEPARIN SODIUM,PORCINE/PF 5,000 UNIT/0.5 ML SYRINGE SQ PRN; +HYDROmorphone 0.5 MG/0.5 ML SYRINGE IVP PRN; +LACTATED RINGERS 1,000 ML IV SCH; +LIDOCAINE 1% (10MG/ML) FOR IV START INTRADERMA PRN; +MIDAZOLAM 2 MG/2 ML VIAL IV PRN; +ONDANSETRON 4 MG/2 ML VIAL IVP ONE; -SODIUM CHLORIDE 0.9% 1,000 ML in EMPTY BAG 1 BAG IV ONE; +metroNIDAZOLE-NS PMX 500 MG in SALINE 1 100ML.BAG IVPB PRN
[2021-07-29 11:38] VITALS: RESP 16
[2021-07-29 11:41] LABS: Glucose,Whole Blood 112 mg/dL (75-99)
[2021-07-29 11:54] LABS: Basophils % (A) 0 %; Eosinophils # (A) 0.2 k/uL (0-0.7); Eosinophils % (A) 2 %; HCT 46.2 % (39.0-53.0); HGB 15.1 gm/dL (13.0-17.5); Lymphocytes # (A) 0.8 k/uL (1.0-4.8); Lymphocytes % (A) 8 %; MCH 30.5 pg (25.0-35.0); MCHC 32.7 g/dL (31.0-37.0); MCV 93.3 fL (80.0-100.0); Mean Platelet Volume 10.2; Monocytes # (A) 0.6 k/uL (0-1.0); Monocytes % (A) 7 %; Neutrophils # (A) 7.7 k/uL (1.3-7.7); Neutrophils % (A) 81 %; Platelet Count 202 k/uL (150-450); RBC 4.95 m/uL (4.30-5.90); RDW 13.8 % (11.5-15.5); WBC 9.4 k/uL (3.8-10.6)
[2021-07-29 12:02] LABS: Albumin 4.4 g/dL (3.5-5.0); Total Protein 7.6 g/dL (6.3-8.2)
[2021-07-29 12:42] LABS: Potassium 4.9 mmol/L (3.5-5.1)
[2021-07-29] MEDS ORDERED: LIDOCAINE 1% INJ 10MG/ML (20 ML MDV) ONE (13:54)
[2021-07-29] MEDS ORDERED: SUCCINYLCHOLINE CHLORIDE 100 MG/5 ML SYR IV ONE (13:54)
[2021-07-29] MEDS ORDERED: fentaNYL (PF) 50 MCG/ML 2 ML AMP ONE (13:54)
[2021-07-29] MEDS ORDERED: PROPOFOL 10 MG/ML 20 ML VIAL IV ONE (13:54)
[2021-07-29] MEDS ORDERED: BUPIVACAIN-EPI 0.25%-1:200,000 30 ML VIAL SQ ONE (14:35)
[2021-07-29] MEDS ORDERED: LACTATED RINGERS 1,000 ML IV ONE (14:54)
[2021-07-29 15:17] VITALS: TEMP 98.2
[2021-07-29 15:22] LABS: Glucose,Whole Blood 169 mg/dL (75-99)
[2021-07-29 16:06] VITALS: BP 147/77; PULSE 92
[2021-07-29 16:42] LABS: Glucose,Whole Blood 211 mg/dL (75-99)
--- NOTE | 2021-07-29 20:25 | P.OP ---
Date of Procedure: 07/29/21 Description of Procedure: SURGEON: JOAN DILLON MD CRYPTOGRAPHIC MACHINE OPERATOR: None. PREOPERATIVE DIAGNOSES: 1. Pilonidal cyst 2. Hypertensive heart disease POSTOPERATIVE DIAGNOSES: 1. Pilonidal cyst 2. Hypertensive heart disease PROCEDURES PERFORMED: 1. Excision of complicated pilonidal cyst 3 x 4 cm 2. Intermediate closure of 3 x 4 cm incision left buttock with lily drain Anesthesia: GETA, local Estimated Blood Loss (ml): 5 Pathology: 1. Pilonidal cyst 2. Pilonidal sinus 3. Aerobic and anerobic cultres Condition: stable Disposition: PACU COMPLICATIONS: None. Operative Findings: 1. Left pilonidal abscess with separate pilonidal sinus 2. Excision of deep subcutaneous tissue of complicated pilonidal cyst/sinus INDICATIONS: The patient is a 75-year-old male who presents with symptomatic pilonidal cyst. Despite conservative treatment, he complains of recurrent infection with failed outpatient management. Surgical intervention with resection was reviewed. Patient elected for surgical intervention. Benefits and risks of surgical intervention were described including bleeding, infection, seroma, pain, wound dehiscence and recurrence. Informed consent was obtained. DESCRIPTION OR PROCEDURE: Patient was brought into the operating room. After general induction, he was positioned in prone position. The buttocks were prepped and draped in a standard sterile fashion. Timeout protocol was confirmed with the surgical team regarding the patient's name, procedure to be performed including preoperative medications. DVT prophylaxis was confirmed. A field block was placed of the at the pilonidal cyst above the left buttock. An indelible marker was used to keshia the cyst and sinus. Initially, a longitudinal elliptical marking was placed over the pilonidal cyst. Separately, the pilonidal cyst was found above the left buttock. A separate pilonidal sinus was found along the midline. An elliptical longitudinal incision using #10 blade was made along the marking into the dermis and subcutaneous tissue and fascia of the pilonidal cyst of 6 x 3 cm. Electro-Bovie cautery was used to enter deep into the subcutaneous tissue deep to fascia. Next, a tunneler was used to confirm the pilonidal sinus tract which was separate from the pilonidal cyst. To prevent risk of recurrence, the pilonidal sinus tract was also excised. Complete excision of 9 x 6 cm deep to the fascia and subcutaneous tissue was performed for complete excision of both the pilonidal cyst and sinus. Bilateral skin flaps were raised to allow for skin closure. 0 Vicryl for the fascia and deep subcutaneous tissue was closed with interrupted suture. Next, 3-0 Monocryl in a subcuticular running fashion was used to close the skin. To buttress the closure, #1 Prolene simple sutures x 3 were placed as retention sutures for complex closure of 9 x 6 cm. The skin was cleansed with dilute hydrogen peroxide and Exofin tape with liquid glue was applied for a four layer closure. The incision was covered with Optifoam dressing. At the end of the procedure, needle, sponge, and instrument count was verified correct by neurosurgical physician assistant. The patient was transferred into the postanesthesia care unit in stable condition. Wound care instructions were described to the patient's family. Plan - Discharge Summary Discharge Rx Participant: Yes New Discharge Prescriptions: New Acetaminophen Tab [Tylenol Tab] 1,000 mg PO Q6HR PRN #30 tablet PRN Reason: Pain Ibuprofen [Motrin] 600 mg PO Q8HR PRN #30 tab PRN Reason: Pain Continue Gabapentin [Neurontin] 300 mg PO TID Aspirin [Adult Low Dose Aspirin EC] 81 mg PO DAILY Quinapril/Hydrochlorothiazide [Quinapril-Hctz 20-12.5 mg Tab] 1 tab PO DAILY Finasteride [Proscar] 5 mg PO 1700 Empagliflozin [Jardiance] 25 mg PO QAM metFORMIN HCL [Glucophage] 1,000 mg PO BID INSULIN LISPRO (For Pump) [humaLOG (For Pump)] 1 applicate SQ-PUMP TID- W/MEALS rOPINIRole HCL [Requip] 1 mg PO QAM Atorvastatin [Lipitor] 40 mg PO DAILY Discharge Medication List Aspirin [Adult Low Dose Aspirin EC] 81 mg PO DAILY 06/29/18 [History] Empagliflozin [Jardiance] 25 mg PO QAM 06/29/18 [History] Finasteride [Proscar] 5 mg PO 1700 06/29/18 [History] Gabapentin [Neurontin] 300 mg PO TID 06/29/18 [History] Quinapril/Hydrochlorothiazide [Quinapril-Hctz 20-12.5 mg Tab] 1 tab PO DAILY 06/29/18 [History] INSULIN LISPRO (For Pump) [humaLOG (For Pump)] 1 applicate SQ-PUMP TID-W/MEALS 10/17/19 [History] metFORMIN HCL [Glucophage] 1,000 mg PO BID 10/17/19 [History] rOPINIRole HCL [Requip] 1 mg PO QAM 02/22/21 [History] Atorvastatin [Lipitor] 40 mg PO DAILY 03/24/21 [History] Acetaminophen Tab [Tylenol Tab] 1,000 mg PO Q6HR PRN #30 tablet 07/29/21 [Rx] Ibuprofen [Motrin] 600 mg PO Q8HR PRN #30 tab 07/29/21 [Rx] Follow up Appointment(s)/Referral(s): Joan Dillon MD [STAFF PHYSICIAN] - 08/03/21 4:00 pm Patient Instructions/Handouts: *[facility] - Managing Your Pain After Surgery Without Opioids, *[facility] - (Anesthesia) Discharge Instructions Outpatient Surgery, Pilonidal Cyst Excision (GEN) Activity/Diet/Wound Care/Special Instructions: Remove dressing after first bowel movement. May shower. Use antibacterial soap, hydrogen peroxide along the incision after showering and bowel movements Drain to be removed in the office. Discharge Disposition: HOME SELF-CARE
== END 2021-07-29 16:50 | disposition home or self-care (01) ==
LOC: OR 10:44
PROVIDERS: ATTEND Surgery Plastic and Reconstructive Surgery
DX: L05.91 Pilonidal cyst without abscess (principal); E11.51 Type 2 diabetes mellitus with diabetic peripheral angiopathy without gangrene; Z95.820 Peripheral vascular angioplasty status with implants and grafts; N40.0 Benign prostatic hyperplasia without lower urinary tract symptoms; I11.9 Hypertensive heart disease without heart failure; G62.9 Polyneuropathy, unspecified; M54.30 Sciatica, unspecified side; Z98.890 Other specified postprocedural states; Z98.42 Cataract extraction status, left eye; Z98.41 Cataract extraction status, right eye; Z87.891 Personal history of nicotine dependence; Z96.41 Presence of insulin pump (external) (internal); E78.5 Hyperlipidemia, unspecified; Z79.84 Long term (current) use of oral hypoglycemic drugs; Z79.82 Long term (current) use of aspirin; Z79.4 Long term (current) use of insulin; Z79.899 Other long term (current) drug therapy
CPT/HCPCS: 80053; 85025; 87070; 87205; 87075; 11771; J1100; J0690; J2405; J2001; J3010; J0330; J2704; J1644

== ENCOUNTER 2021-08-13 05:40 | Day surgery (SDC) | payer MEDICARE, BC ==
[2021-08-11 13:28] VITALS: BMI 26.2
[~2021-08-13 05:40] MED LIST changes: -DEXAMETHASONE SOD PHOSPHATE 4 MG/ML 1 ML VIAL IV ONE; -HYDROmorphone 0.5 MG/0.5 ML SYRINGE IVP PRN; -LACTATED RINGERS 1,000 ML IV SCH; -LIDOCAINE 1% (10MG/ML) FOR IV START INTRADERMA PRN; -MIDAZOLAM 2 MG/2 ML VIAL IV PRN; -ONDANSETRON 4 MG/2 ML VIAL IVP ONE; +Pre Op ABX Message 1 EACH MISC MISCELLANE ONE; -metroNIDAZOLE-NS PMX 500 MG in SALINE 1 100ML.BAG IVPB PRN
[2021-08-13] MEDS ORDERED: LACTATED RINGERS 1,000 ML IV SCH (05:48)
[2021-08-13] MEDS ORDERED: DEXAMETHASONE SOD PHOSPHATE 4 MG/ML 1 ML VIAL IV ONE (05:48)
[2021-08-13] MEDS ORDERED: HYDROmorphone 0.5 MG/0.5 ML SYRINGE IVP PRN (05:48)
[2021-08-13] MEDS ORDERED: ONDANSETRON 4 MG/2 ML VIAL IVP ONE (05:48)
--- NOTE | 2021-08-13 06:12 | P.GSHP ---
History of Present Illness H&P Date: 08/13/21 CHIEF COMPLAINT: Rectal pain, anal fissue HISTORY OF PRESENT ILLNESS: The patient is a 75-year-old male with severe rectal pain. He presents for further examination under anesthesia. PAST MEDICAL HISTORY: Please see list. PAST SURGICAL HISTORY: Please see list. MEDICATIONS: Please see list. ALLERGIES: Please see list. SOCIAL HISTORY: No illicit drug use FAMILY HISTORY: No reports of Crohn disease or ulcerative colitis. REVIEW OF ORGAN SYSTEMS: CONSTITUTIONAL: No reports of fevers or chills. No reports of weight loss despite prior attempts. GI: Has change in bowel habits. PHYSICAL EXAM: VITAL SIGNS: Stable GENERAL: Well-developed pleasant male in no acute distress. HEENT: No scleral icterus. Extraocular movements grossly intact. Moist buccal mucosa. NECK: Supple without lymphadenopathy. CHEST: Unlabored respirations. Equal bilateral excursions. CARDIOVASCULAR: Regular rate and rhythm. Distal 2+ pulses. ABDOMEN: Soft, nontender, nondistended. MUSCULOSKELETAL: No clubbing, cyanosis, or edema. RECTUM: Suture present along right buttock near anus. ASSESSMENT: 1. Ano-rectal pain PLAN: 1. Recommend proceeding with exam under anesthesia. Past Medical History Past Medical History: Diabetes Mellitus, Vascular Disorder Additional Past Medical History / Comment(s): Insulin Pump. Neuropathy feet. PVD with stents. Sciatic nerve pain. "toes on right foot are red". History of Any Multi-Drug Resistant Organisms: None Reported Past Surgical History: Tonsillectomy Additional Past Surgical History / Comment(s): Bilateral leg bypass surgery, bilateral cataracts, atherectomy & balloon angioplasty right leg(07/2019). Past Anesthesia/Blood Transfusion Reactions: No Reported Reaction Past Psychological History: No Psychological Hx Reported Smoking Status: Former smoker Past Alcohol Use History: None Reported Additional Past Alcohol Use History / Comment(s): Smoked for 20 yrs, quit smoking 15 yrs ago, 1 PPD. Past Drug Use History: None Reported - Past Family History Mother Family Medical History: No Reported History Medications and Allergies Home Medications Medication Instructions Recorded Confirmed Type Aspirin [Adult Low Dose Aspirin EC] 81 mg PO DAILY 06/29/18 08/11/21 History Empagliflozin [Jardiance] 25 mg PO QAM 06/29/18 08/11/21 History Finasteride [Proscar] 5 mg PO 1700 06/29/18 08/11/21 History Gabapentin [Neurontin] 300 mg PO TID 06/29/18 08/11/21 History Quinapril/Hydrochlorothiazide 1 tab PO DAILY 06/29/18 08/11/21 History [Quinapril-Hctz 20-12.5 mg Tab] INSULIN LISPRO (For Pump) [humaLOG 1 applicate SQ-PUMP TID-W/MEALS 10/17/19 08/11/21 History (For Pump)] metFORMIN HCL [Glucophage] 1,000 mg PO BID 10/17/19 08/11/21 History rOPINIRole HCL [Requip] 1 mg PO QAM 02/22/21 08/11/21 History Atorvastatin [Lipitor] 40 mg PO DAILY 03/24/21 08/11/21 History Acetaminophen Tab [Tylenol Tab] 1,000 mg PO Q6HR PRN #30 tablet 07/29/21 08/11/21 Rx Ibuprofen [Motrin] 600 mg PO Q8HR PRN #30 tab 07/29/21 08/11/21 Rx Allergies Allergy/AdvReac Type Severity Reaction Status Date / Time No Known Allergies Allergy Verified 08/11/21 13:32
[2021-08-13 06:38] VITALS: TEMP 97.4
[2021-08-13] MEDS ORDERED: LIDOCAINE 1% (10MG/ML) FOR IV START SQ ONE (06:50)
[2021-08-13 06:58] LABS: Glucose,Whole Blood 226 mg/dL (75-99)
[2021-08-13] MEDS ORDERED: BUPIVACAIN-EPI 0.25%-1:200,000 30 ML VIAL SQ ONE (07:56)
[2021-08-13] MEDS ORDERED: IV FLUID CONTINUATION 1,000 ML IV ONE (08:15)
--- NOTE | 2021-08-13 08:24 | P.OP ---
Date of Procedure: 08/13/21 Description of Procedure: SURGEON: JOAN DILLON MD DINING SERVICE WORKER: None. PREOPERATIVE DIAGNOSES: 1. Anorectal pain 2. History of pilonidal cyst 3. Diabetes type 2, insulin-dependent 4. Hypertensive heart disease 5. Peripheral vascular occlusive disease 6. 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 Anorectal pain 2. History of pilonidal cyst 3. Diabetes type 2, insulin-dependent 4. Hypertensive heart disease 5. Peripheral vascular occlusive disease 6. 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 Exam under anesthesia for anorectal pain 2. Removal of right perianal suture ANESTHESIA: MAC ESTIMATED BLOOD LOSS: 1 mL. SPECIMENS REMOVED: None COMPLICATIONS: None. FINDINGS: 1. Right perianal excision of 2.5 cm x 0.5 cm with moderate contraction of prior pilonidal cyst without infection or cellulitis. 2. Suture 2-0 Nylon completely excised. INDICATIONS: The patient is a 75-year-old male with recent excision of pilonidal cyst. Patient could not tolerate rectal exam without anesthesia. Exam under anesthesia with removal of suture were described. Benefits and risks of immediate drainage was reviewed including bleeding, infection, cosmetic deformity, need for further surgery, for which informed consent was obtained. DESCRIPTION OF PROCEDURE: The patient was brought to the operating room, laid in supine position. After anesthesia, the patient was repositioned to the prone jackknife position with the buttocks spread apart. The lower back and buttocks were prepped and draped in standard sterile fashion using Betadine. Prior to incision, a timeout protocol was confirmed with surgical team regarding patient's name, procedure to be performed, including preoperative medications for which he had received Aancef. Attention was brought to the prior excision of pilonidal cyst along the right perianal area. No fluctuance was identified. No tract to the anus was identified. Prior scar was confirmed along the right buttock. Suture was identified and excised of 2-0 nylon. Tissue was without cellulitis or infection. Skin was cleansed with hydrogen peroxide. The skin was cleansed. Next 4 x 4's were placed. The patient was awoken from anesthesia and transferred to the postanesthesia care in stable condition. Please note that the instrument, sponge, and needle count was verified correct by plant technician. Plan - Discharge Summary Discharge Rx Participant: Yes New Discharge Prescriptions: New metroNIDAZOLE [Flagyl] 500 mg PO TID #30 tab Continue Gabapentin [Neurontin] 300 mg PO TID Aspirin [Adult Low Dose Aspirin EC] 81 mg PO DAILY Quinapril/Hydrochlorothiazide [Quinapril-Hctz 20-12.5 mg Tab] 1 tab PO DAILY Finasteride [Proscar] 5 mg PO 1700 Empagliflozin [Jardiance] 25 mg PO QAM metFORMIN HCL [Glucophage] 1,000 mg PO BID INSULIN LISPRO (For Pump) [humaLOG (For Pump)] 1 applicate SQ-PUMP TID- W/MEALS Acetaminophen Tab [Tylenol] 1,000 mg PO Q6HR PRN #30 tablet PRN Reason: Pain rOPINIRole HCL [Requip] 1 mg PO QAM Atorvastatin [Lipitor] 40 mg PO DAILY Ibuprofen [Motrin] 600 mg PO Q8HR PRN #30 tab PRN Reason: Pain Discharge Medication List Aspirin [Adult Low Dose Aspirin EC] 81 mg PO DAILY 06/29/18 [History] Empagliflozin [Jardiance] 25 mg PO QAM 06/29/18 [History] Finasteride [Proscar] 5 mg PO 1700 06/29/18 [History] Gabapentin [Neurontin] 300 mg PO TID 06/29/18 [History] Quinapril/Hydrochlorothiazide [Quinapril-Hctz 20-12.5 mg Tab] 1 tab PO DAILY 06/29/18 [History] INSULIN LISPRO (For Pump) [humaLOG (For Pump)] 1 applicate SQ-PUMP TID-W/MEALS 10/17/19 [History] metFORMIN HCL [Glucophage] 1,000 mg PO BID 10/17/19 [History] rOPINIRole HCL [Requip] 1 mg PO QAM 02/22/21 [History] Atorvastatin [Lipitor] 40 mg PO DAILY 03/24/21 [History] Acetaminophen Tab [Tylenol] 1,000 mg PO Q6HR PRN #30 tablet 07/29/21 [Rx] Ibuprofen [Motrin] 600 mg PO Q8HR PRN #30 tab 07/29/21 [Rx] metroNIDAZOLE [Flagyl] 500 mg PO TID #30 tab 08/13/21 [Rx] Follow up Appointment(s)/Referral(s): Joan Dillon MD [STAFF PHYSICIAN] - 08/17/21 Patient Instructions/Handouts: Rectal Pain (ED), Sitz Bath (DC) Activity/Diet/Wound Care/Special Instructions: Sitz bath twice daily Use antibiotics as described Take scheduled pain medications for the next 2 to 3 days for best pain relief Discharge Disposition: HOME SELF-CARE
[2021-08-13 08:33] VITALS: PULSE 71; RESP 16
[2021-08-13 08:33] LABS: Glucose,Whole Blood 185 mg/dL (75-99)
[2021-08-13 08:52] VITALS: BP 138/69
== END 2021-08-13 09:32 | disposition home or self-care (01) ==
LOC: OR 05:40
PROVIDERS: ATTEND Surgery Plastic and Reconstructive Surgery
DX: L05.91 Pilonidal cyst without abscess (principal); E11.36 Type 2 diabetes mellitus with diabetic cataract; E11.51 Type 2 diabetes mellitus with diabetic peripheral angiopathy without gangrene; I11.9 Hypertensive heart disease without heart failure; Z79.1 Long term (current) use of non-steroidal anti-inflammatories (NSAID); Z79.4 Long term (current) use of insulin; Z79.82 Long term (current) use of aspirin; Z79.899 Other long term (current) drug therapy; Z87.891 Personal history of nicotine dependence; Z95.820 Peripheral vascular angioplasty status with implants and grafts
CPT/HCPCS: 11770; J2405; J1644

== ENCOUNTER → 2022-03-10 | Outpatient (CLI) | payer MEDICARE, BC ==
--- NOTE | 2022-03-13 12:07 | CT ---
EXAMINATION TYPE: CT angio abd aorta w/Runoff DATE OF EXAM: 03/10/2022 INDICATION: Peripheral vascular disease CT DLP: 1456.7 mGy.cm Automated Exposure Control for Dose Reduction was Utilized. TECHNIQUE AND CONTRAST: CT scan of the abdomen, pelvis and lower extremities is performed without and with IV Contrast, patie nt injected with 100 mL of Isovue 370. MIP and 3-D reconstruction images were generated on an [employer] workstation and reviewed. COMPARISON: CT dated 07/10/2019 FINDINGS: The exam is limited by extensive arterial atherosclerotic calcifications. Previous femoral-femoral by pass graft which appears well-opacified. Severe atherosclerotic calcifications of the abdominal aorta mainly inferiorly with severe stenosis at the aortic bifurcation. Moderate to severe stenosis of the origins of the celiac trunk, superior mesenteric artery and right renal artery yet patent distally. Extensive atherosclerotic plaques and calcification of the superior aspect of the superior mesenteric artery. Single renal artery supplying each kidney. Opacified inferior mesenteric artery down to the pelvis. Complete occlusion of the right common iliac artery, with minimal opacification of the right internal and right external iliac arteries. Unopacified right common femoral artery down to the above-describ ed graft. Atherosclerotic yet well opacified right deep femoral artery. There is complete nonopacific ation of the right superficial femoral artery starting a few centimeters inferior to the graft anasto mosis down to the popliteal artery which also apparently completely occluded. Reconstitution of the m ost inferior aspect of the right popliteal artery likely through collaterals from the deep femoral ar elda. Extensive arterial atherosclerotic calcification of the inferior aspect of the right popliteal artery as well as most of the right leg arteries yet are apparently opacified down to the ankle. Calc ified right dorsalis pedis and plantar arteries. Dense atherosclerotic calcification of the left common iliac artery and left internal iliac artery wi thout significant stenosis or occlusion. Unremarkable left external iliac artery. Atherosclerotic aneesh cification of the left common femoral artery without significant stenosis or occlusion. Unremarkable left deep femoral artery. Extensive atherosclerotic calcifications of the left superficial femoral ar elda with multiple segments of severe stenosis without complete occlusion. Similar changes are seen i nvolving the left popliteal artery. Excessive atherosclerotic calcification of the left leg arteries yet apparently opacified down to the ankle. Opacified left dorsalis pedis and plantar arteries. 4 mm nonobstructing stone seen at the lower pole of the left kidney with suspected 2 mm nonobstructin g calculus at the lower pole of right kidney. Enlarged prostate, please correlate with PSA level. Unc omplicated colonic diverticulosis. Degenerative changes of the lower thoracic and lumbar spine. IMPRESSION: Extensive arterial atherosclerotic calcifications as detailed above. Previous femoral femoral bypass graft, well-opacified. Completely occluded right superficial femoral artery and popliteal artery with distal popliteal reconstitution likely from collaterals as detailed above. Extensive atherosclerotic calcification with multiple segments of severe stenosis of the left superfi cial femoral and left popliteal arteries as described above. Recommend vascular surgery consultation. Other findings as described above.
== END | disposition home or self-care (01) ==
LOC: RADCTMAIN 13:05
PROVIDERS: ATTEND Internal Medicine Interventional Cardiology
DX: I70.203 Unspecified atherosclerosis of native arteries of extremities, bilateral legs (principal)
CPT/HCPCS: 82565; 84520; 75635; 36415; Q9967

== ENCOUNTER 2022-05-04 07:25 | Day surgery (SDC) | payer MEDICARE, BC ==
[~2022-05-04 07:25] MED LIST changes: -HEPARIN SODIUM,PORCINE/PF 5,000 UNIT/0.5 ML SYRINGE SQ PRN; -Pre Op ABX Message 1 EACH MISC MISCELLANE ONE; +SODIUM CHLORIDE 0.9% 1,000 ML in EMPTY BAG 1 BAG IV ONE
[2022-05-04 07:47] LABS: Glucose,Whole Blood 169 mg/dL (70-110)
[2022-05-04 08:01] LABS: Basophils % (A) 1 %; Eosinophils # (A) 0.2 k/uL (0-0.7); Eosinophils % (A) 3 %; HCT 47.6 % (39.0-53.0); HGB 15.5 gm/dL (13.0-17.5); Lymphocytes # (A) 1.6 k/uL (1.0-4.8); Lymphocytes % (A) 20 %; MCH 30.5 pg (25.0-35.0); MCHC 32.6 g/dL (31.0-37.0); MCV 93.6 fL (80.0-100.0); Mean Platelet Volume 9.3; Monocytes # (A) 0.7 k/uL (0-1.0); Monocytes % (A) 9 %; Neutrophils # (A) 5.2 k/uL (1.3-7.7); Neutrophils % (A) 65 %; Platelet Count 176 k/uL (150-450); RBC 5.09 m/uL (4.30-5.90); RDW 13.3 % (11.5-15.5); WBC 7.9 k/uL (3.8-10.6)
[2022-05-04 08:15] LABS: Calcium 9.3 mg/dL (8.4-10.2); Potassium 4.8 mmol/L (3.5-5.1)
[2022-05-04] MEDS ORDERED: HEPARIN SODIUM 1,000 UN/ML (10ML VL) ONE (10:23)
[2022-05-04] MEDS ORDERED: SODIUM CHLORIDE 0.9% 500 ML 500 ML with niCARdipine 6.25 MG, NITROGLYCERIN-D5W PMX 0.05... IV ONE ×4 (10:30)
[2022-05-04] MEDS ORDERED: MIDAZOLAM 2 MG/2 ML VIAL IV ONE (11:07)
[2022-05-04] MEDS ORDERED: fentaNYL (PF) 50 MCG/ML 2 ML AMP ONE ×2 (11:09→12:25)
[2022-05-04] MEDS ORDERED: LIDOCAINE 1% INJ 10MG/ML (30 ML VIAL-PF) SQ ONE (11:09)
[2022-05-04] MEDS: fentaNYL (PF) 50 MCG/ML 2 ML AMP IV ONE ×2 (11:10→12:07)
[2022-05-04] MEDS: HEPARIN SODIUM 1,000 UN/ML (10ML VL) IV ONE ×4 (11:22→12:19)
[2022-05-04] MEDS: MIDAZOLAM 2 MG/2 ML VIAL IV ONE ×2 (11:24→12:07)
[2022-05-04] MEDS ORDERED: SODIUM CHLORIDE 0.9% 1,000 ML IV ONE (12:05)
[2022-05-04] MEDS ORDERED: niCARdipine 25 MG/10 ML VIAL ONE (12:27)
[2022-05-04] MEDS ORDERED: HYDROmorphone 0.5 MG/0.5 ML SYRINGE IVP ONE (12:35)
[2022-05-04] MEDS ORDERED: fentaNYL (PF) 50 MCG/ML 2 ML AMP IV ONE (12:35)
[2022-05-04] MEDS ORDERED: NITROGLYCERIN 1000MCG/10ML SYRINGE INTRAARTER ONE (12:37)
[2022-05-04] MEDS ORDERED: niCARdipine Syringe (1,000 mcg/10 mL) INTRAARTER ONE (12:37)
[2022-05-04] MEDS ORDERED: CLOPIDOGREL 75 MG TAB ONE (13:09)
[2022-05-04] MEDS ORDERED: IBUPROFEN 600 MG TAB PO PRN (13:17)
[2022-05-04] MEDS ORDERED: NALOXONE 0.4 MG/ML 1 ML VIAL IVP PRN (13:18)
[2022-05-04] MEDS ORDERED: CLOPIDOGREL 75 MG TAB PO ONE (13:18)
[2022-05-04] MEDS ORDERED: IOPAMIDOL-250 100ML BTL INTRAARTER ONE (13:18)
--- NOTE | 2022-05-04 13:28 | P.PCN ---
Date of Procedure: 05/04/22 Operative Findings: PERCUTANEOUS PERIPHERAL INTERVENTION Performing physician Elier Tanner M.D. Procedure performed #1 an atherectomy of the right popliteal using the CSI device #2 successful balloon angioplasty of the right popliteal #3 successful stenting of the proximal right SFA #4 successful balloon angioplasty of the mid and distal right SFA #5 right lower extremity angiogram #6 ultrasound-guided access of the fem-fem bypass #7 intravascular ultrasound of the right popliteal and right SFA Indication Critical limb ischemia of the right foot Approach Fem-fem bypass Complications None Level of sedation Moderate with a sedation time of 120 minutes Procedure description After obtaining an informed consent the patient was brought to the cardiac cath lab radiology technician. The fem-fem bypass was accessed using ultrasound guidance and using micropuncture technique, the micropuncture wire passed easily then I placed a 6- Occitan 55 cm sheath after I predilated using 5 and 6 and 7-Occitan dilators. Subsequently I did right lower 70 angiogram with injection through the sheath and that showed 2 vessels run off below the knee with anterior tibial and peroneal and occluded right popliteal as well as occluded right SFA which is in- stent occlusion. I was able to cross the occlusion of the right SFA and right popliteal using 018 wire with a backup support of 018 catheter. Subsequently I advanced the catheter over the wire and injected through the right popliteal to prove that I was in the true lumen. After that intravascular ultrasound was performed intravascular ultrasound of the right popliteal and right SFA and that showed that I was in the true lumen. Then I did do atherectomy of the right popliteal using the orbital atherectomy device. After that balloon angioplasty was performed using 3.5 x 60 mm balloon. The following angiogram showed good angiographic results. After that I did balloon angioplasty of the right SFA using 6 mm balloon with adequate angiographic results except for the ostial SFA which I decided to cover with the stent so I deployed 7 x 80 mm a stent. The stent was postdilated using 6 mm balloon. After that for the mid and distal right SFA I did drug-coated balloon. The final angiogram showed good angiographic results and the procedure was completed without any complication Postprocedure management #1 dual antiplatelet therapy #2 aggressive cholesterol control #3 risk factors modification #4 follow-up with the patient
[2022-05-04] MEDS ORDERED: SODIUM CHLORIDE 0.9% 1,000 ML in EMPTY BAG 1 BAG IV SCH (13:30)
--- NOTE | 2022-05-04 14:18 | IR ---
Fluoroscopy HISTORY: Pain in right leg 38.7 minutes fluoroscopy time supplied to the referring clinician. 446 intraoperative C-arm images d ocument the procedure. See dictated report from cardiology.
[2022-05-04] MEDS ORDERED: ATROPINE SULFATE 0.1 MG/ML 10ML SYRINGE ONE (15:59)
[2022-05-04] MEDS ORDERED: INSULIN LISPRO (For Pump) 100 UNIT/ML VIAL SQ-PUMP SCH (16:00)
[2022-05-04] MEDS ORDERED: hydrALAZINE HCL 20 MG/ML 1 ML VIAL IVP PRN (16:32)
[2022-05-04] MEDS ORDERED: FINASTERIDE 5 MG TAB PO SCH (17:00)
[2022-05-04 17:02] LABS: Glucose,Whole Blood 112 mg/dL (70-110)
[2022-05-04] MEDS ORDERED: ACETAMINOPHEN TAB 325 MG TAB PO PRN (17:07)
[2022-05-04] MEDS: GABAPENTIN 300 MG CAP PO SCH ×2 (17:11→21:10)
[2022-05-04] MEDS ORDERED: Acetaminophen-Codeine 300-30mg TAB PO PRN (17:30)
[2022-05-04 19:48] LABS: Glucose,Whole Blood 122 mg/dL (70-110)
[2022-05-05 05:56] LABS: Glucose,Whole Blood 207 mg/dL (70-110)
[2022-05-05] MEDS: GABAPENTIN 300 MG CAP PO SCH (08:36)
[2022-05-05 08:47] VITALS: BP 150/73; PULSE 86; RESP 20; TEMP 97.8
[2022-05-05] MEDS ORDERED: ATORVASTATIN 40 MG TAB PO SCH (09:00)
[2022-05-05] MEDS ORDERED: ASPIRIN 81 MG PO SCH (09:00)
[2022-05-05] MEDS ORDERED: CLOPIDOGREL 75 MG TAB PO SCH (09:00)
[2022-05-05] MEDS ORDERED: lisinopriL 20 MG TAB PO SCH (09:00)
[2022-05-05] MEDS ORDERED: hydroCHLOROthiazide 12.5 MG CAP PO SCH (09:00)
--- NOTE | 2022-05-05 10:26 | P.DS ---
Providers Attending physician: Elier Tanner Primary care physician: Suellen [facility] Course: The patient is a pleasant 76-year-old gentleman with known lower extremities peripheral arterial disease who underwent yesterday successful recanalizing chronically occluded right SFA and also atherectomy and ARCHEOLOGIST CLASSICAL of the right popliteal. He was seen this morning. The right foot pain has resolved completely. He reports no symptoms of chest pain or chest discomfort. He is hemodynamically stable. The site axis is soft and nontender and with no any bruises The patient is going to be discharged home on triple therapy including aspirin and Plavix and small dose of Xarelto and I'll follow-up with the patient in a week Plan - Discharge Summary Discharge Rx Participant: No New Discharge Prescriptions: New Clopidogrel [Plavix] 75 mg PO DAILY #90 tab Rivaroxaban [Xarelto] 2.5 mg PO BID #180 tab Continue Gabapentin [Neurontin] 300 mg PO TID Aspirin [Adult Low Dose Aspirin EC] 81 mg PO DAILY Quinapril/Hydrochlorothiazide [Accuretic 20-12.5 mg Tab] 1 tab PO DAILY Finasteride [Proscar] 5 mg PO 1700 Empagliflozin [Jardiance] 25 mg PO QAM INSULIN LISPRO (For Pump) [humaLOG (For Pump)] 1 applicate SQ-PUMP CONTINUOUS metroNIDAZOLE [Flagyl] 500 mg PO TID #30 tab rOPINIRole HCL [Requip] 1 mg PO QAM Atorvastatin [Lipitor] 40 mg PO DAILY Ibuprofen [Motrin] 600 mg PO Q8HR PRN #30 tab PRN Reason: Pain Discontinued metFORMIN HCL [Glucophage] 1,000 mg PO BID Discharge Medication List Aspirin [Adult Low Dose Aspirin EC] 81 mg PO DAILY 06/29/18 [History] Empagliflozin [Jardiance] 25 mg PO QAM 06/29/18 [History] Finasteride [Proscar] 5 mg PO 1700 06/29/18 [History] Gabapentin [Neurontin] 300 mg PO TID 06/29/18 [History] Quinapril/Hydrochlorothiazide [Accuretic 20-12.5 mg Tab] 1 tab PO DAILY 06/29/18 [History] INSULIN LISPRO (For Pump) [humaLOG (For Pump)] 1 applicate SQ-PUMP CONTINUOUS 10/17/19 [History] rOPINIRole HCL [Requip] 1 mg PO QAM 02/22/21 [History] Atorvastatin [Lipitor] 40 mg PO DAILY 03/24/21 [History] Ibuprofen [Motrin] 600 mg PO Q8HR PRN #30 tab 08/13/21 [Rx] metroNIDAZOLE [Flagyl] 500 mg PO TID #30 tab 08/13/21 [Rx] Clopidogrel [Plavix] 75 mg PO DAILY #90 tab 05/05/22 [Rx] Rivaroxaban [Xarelto] 2.5 mg PO BID #180 tab 05/05/22 [Rx] Follow up Appointment(s)/Referral(s): Elier Tanner MD [STAFF PHYSICIAN] - 1 Week
== END 2022-05-05 11:17 | disposition home or self-care (01) ==
LOC: CATHCVL 07:25 → 3SCARD 13:11 → CATHCVL 05-05 11:17
PROVIDERS: ATTEND Internal Medicine Interventional Cardiology
DX: E11.51 Type 2 diabetes mellitus with diabetic peripheral angiopathy without gangrene (principal); I70.213 Atherosclerosis of native arteries of extremities with intermittent claudication, bilateral legs; I10 Essential (primary) hypertension; E78.5 Hyperlipidemia, unspecified; Z20.822 Contact with and (suspected) exposure to COVID-19
CPT/HCPCS: 37227; 37252; 80048; 82565; 85025; 87635; C1894 ×3; C1769 ×7; C1714; C1725 ×5; C1753; C2623 ×2; C1874; S0138; J2250; J0360; J2001; J3010; J1644; J1170; Q9966

== ENCOUNTER 2022-05-08 18:30 | Emergency (ER) | payer MEDICARE, BC ==
[2022-05-08 18:42] VITALS: TEMP 97.6
--- NOTE | 2022-05-08 18:55 | ED ---
General Adult HPI - General Chief complaint: Extremity Problem,Nontraumatic Stated complaint: post op leg issue Time Seen by Provider: 05/08/22 18:44 Source: patient, RN notes reviewed Mode of arrival: ambulatory Limitations: no limitations - History of Present Illness Initial comments: Patient is a pleasant 76-year-old male presenting to the emergency department with concerns with right leg swelling. Patient did have arterial procedure to open his arteries done [address] Tanner. Patient has noticed some right leg swelling since that time. Patient denies any discomfort. No chest pain or dyspnea. Patient was started on some blood thinners following the procedure however he is unclear what they are. - Related Data Home Medications Medication Instructions Recorded Confirmed Aspirin [Adult Low Dose Aspirin EC] 81 mg PO DAILY 06/29/18 05/08/22 Empagliflozin [Jardiance] 25 mg PO DAILY 06/29/18 05/08/22 Finasteride [Proscar] 5 mg PO DAILY 06/29/18 05/08/22 Gabapentin [Neurontin] 300 mg PO TID 06/29/18 05/08/22 Quinapril/Hydrochlorothiazide 1 tab PO DAILY 06/29/18 05/08/22 [Accuretic 20-12.5 mg Tab] INSULIN LISPRO (For Pump) [humaLOG 1 applicate SQ-PUMP CONTINUOUS 10/17/19 05/08/22 (For Pump)] rOPINIRole HCL [Requip] 1 mg PO HS 02/22/21 05/08/22 Atorvastatin [Lipitor] 40 mg PO DAILY 03/24/21 05/08/22 metFORMIN HCL 1,000 mg PO BID 05/08/22 05/08/22 Previous Rx's Medication Instructions Recorded Clopidogrel [Plavix] 75 mg PO DAILY #90 tab 05/05/22 Rivaroxaban [Xarelto] 2.5 mg PO BID #180 tab 05/05/22 Allergies Allergy/AdvReac Type Severity Reaction Status Date / Time No Known Allergies Allergy Verified 05/08/22 19:52 Review of Systems ROS Statement: Those systems with pertinent positive or pertinent negative responses have been documented in the HPI. ROS Other: All systems not noted in ROS Statement are negative. Constitutional: Denies: fever Eyes: Denies: eye pain ENT: Denies: ear pain Respiratory: Denies: cough, dyspnea Cardiovascular: Denies: chest pain Endocrine: Denies: fatigue Gastrointestinal: Denies: abdominal pain Genitourinary: Denies: dysuria Musculoskeletal: Reports: as per HPI. Denies: back pain Skin: Denies: lesions Neurological: Denies: weakness Past Medical History Past Medical History: Diabetes Mellitus, Hyperlipidemia, Hypertension, Vascular Disorder Additional Past Medical History / Comment(s): Insulin Pump. Neuropathy feet. PVD with stents. HX of Sciatic nerve pain. "toes on right foot are red". History of Any Multi-Drug Resistant Organisms: None Reported Past Surgical History: Tonsillectomy Additional Past Surgical History / Comment(s): Bilateral leg bypass surgery, bilateral cataracts, atherectomy & balloon angioplasty right leg(07/2019). Past Anesthesia/Blood Transfusion Reactions: No Reported Reaction Additional Past Anesthesia/Blood Transfusion Reaction / Comment(s): unsure of blood transfusion hx Past Psychological History: No Psychological Hx Reported Smoking Status: Former smoker Past Alcohol Use History: None Reported Past Drug Use History: None Reported - Past Family History Mother Family Medical History: No Reported History Father Family Medical History: Diabetes Mellitus General Exam Limitations: no limitations General appearance: alert, in no apparent distress Head exam: Present: normocephalic Eye exam: Present: normal appearance Neck exam: Present: normal inspection Respiratory exam: Present: normal lung sounds bilaterally Cardiovascular Exam: Present: regular rate, normal rhythm Expanded Peripheral pulses: 1+: Posterior Tibialis (R), Posterior Tibialis (L), Dorsalis Pedis (R), Dorsalis Pedis (L) GI/Abdominal exam: Present: soft. Absent: distended, tenderness Extremities exam: Present: full ROM, calf tenderness (Mild swelling right lower leg. No calf tenderness.), other (No tenderness. No joint tenderness or specific joint swelling.). Absent: tenderness Neurological exam: Present: alert Psychiatric exam: Present: normal affect, normal mood Skin exam: Present: other (Trace erythema near the heel and distal foot) Course Vital Signs 05/08/22 18:40 Temperature 97.6 F Pulse Rate 86 Respiratory 16 Rate Blood Pressure 147/63 O2 Sat by Pulse 98 Oximetry - Reevaluation(s) Reevaluation #1: 05/08/22 20:04 Pulse is confirmed with Doppler Medical Decision Making - Medical Decision Making Case was discussed with Dr. Tanner who feels symptoms are likely from reperfusion. Updated on ultrasound. He is comfortable with patient discharged home and follow-up. He does recommend diuretic. Patient updated. - Radiology Data Radiology results: report reviewed (Ultrasound negative for DVT) Disposition Clinical Impression: Leg edema, right Disposition: HOME SELF-CARE Condition: Stable Instructions (If sedation given, give patient instructions): Leg Edema (ED) Additional Instructions: Please do follow-up with Dr. Tanner and primary care physician this week. Return for increased pain, swelling, color change, fever, worsening or changing symptoms or other concerns. Is patient prescribed a controlled substance at d/c from ED?: No Referrals: Suellen Bueno MD [Primary Care Provider] - 1-2 days Elier Tanner MD [STAFF PHYSICIAN] - 1-2 days Time of Disposition: 20:30
--- NOTE | 2022-05-08 19:33 | US ---
EXAMINATION TYPE: US venous doppler duplex LE RT DATE OF EXAM: 05/08/2022 7:25 PM COMPARISON: NONE CLINICAL HISTORY: swelling. Redness and swelling to right leg SIDE PERFORMED: Right TECHNIQUE: The lower extremity deep venous system is examined utilizing real time linear array sonog flex with graded compression, doppler sonography and color-flow sonography. VESSELS IMAGED: Common Femoral Vein Deep Femoral Vein Greater Saphenous Vein * Femoral Vein Popliteal Vein Small Saphenous Vein * Proximal Calf Veins (* superficial vessels) Right Leg: Pt unable to tolerate compressions within right groin/ visualized portions appeared negat erik for DVT IMPRESSION: No evidence of deep vein thrombosis in the right leg.
[2022-05-08] MEDS ORDERED: FUROSEMIDE 40 MG TAB PO STA (20:30)
[2022-05-08 20:42] VITALS: BP 173/68; PULSE 64; RESP 18
== END 2022-05-08 20:42 | disposition home or self-care (01) ==
LOC: EC 18:30
DX: R60.0 Localized edema (principal); E11.9 Type 2 diabetes mellitus without complications; E78.5 Hyperlipidemia, unspecified; I10 Essential (primary) hypertension; Z87.891 Personal history of nicotine dependence; Z79.4 Long term (current) use of insulin
CPT/HCPCS: 99283

== ENCOUNTER → 2022-06-27 | Outpatient (CLI) | payer MEDICARE, BC ==
--- NOTE | 2022-06-28 08:24 | US ---
EXAMINATION TYPE: US thyroid st tissue head/neck DATE OF EXAM: 06/27/2022 COMPARISON: US CLINICAL HISTORY: E04.1 SINGLE THYROID NODULE. F/U nodule, prior right nodule biopsied GLAND SIZE: Right Lobe: 6.0 x 2.3 x 2.2 cm Overall Parenchyma: homogenous Left Lobe: 4.9 x 1.5 x 1.8 cm Overall Parenchyma: homogeneous Isthmus Thickness: 0.3 cm NODULES RIGHT: # of nodules measured on right: 1 1. 4.0 X 2.4 x 3.1 cm, lower, solid or almost completely solid, hypoechoic nodule, which is wider t lux tall, with smooth margins, with echogenic foci. Prior size: 5.0 x 2.5 x 3.2 cm LEFT: # of nodules measured on left: 1 1. 0.4 X 0.2 x 0.4 cm, lower, cystic or almost completely cystic, hypoechoic nodule, which is wider than tall, with smooth margins, without echogenic foci. Prior size: 0.5 x 0.3 x 0.4 cm ISTHMUS: # of nodules measured in the isthmus: 0 Bilateral neck scanned, no evidence of lymphadenopathy. Stable nodules. IMPRESSION: Stable nonspecific thyroid nodularity.
== END | disposition home or self-care (01) ==
LOC: RADUSWWP 15:34
PROVIDERS: ATTEND Surgery Plastic and Reconstructive Surgery
DX: E04.2 Nontoxic multinodular goiter (principal)
CPT/HCPCS: 76536

== ENCOUNTER 2022-08-16 09:21 | Emergency (ER) | payer MEDICARE, BC ==
[2022-08-16 09:28] VITALS: BP 148/61; PULSE 79; RESP 20; TEMP 98
[2022-08-16] MEDS ORDERED: KETOROLAC 15 MG/ML 1 ML VIAL IM STA (09:51)
[2022-08-16] MEDS ORDERED: ORPHENADRINE 30 MG/ML 2 ML VIAL IM STA (09:51)
--- NOTE | 2022-08-16 09:56 | ED ---
Back Pain [facility] - General Chief Complaint: Back Pain/Injury Stated Complaint: back pain Time Seen by Provider: 08/16/22 09:42 Source: patient, RN notes reviewed, old records reviewed Limitations: no limitations - History of Present Illness Initial Comments: 76-year-old male presents to the emergency room ambulatory with family complaining of low right-sided lumbar back pain for one week. Patient states that it occurred while he was just walking. He does have a history of sciatica and did try a sciatic band with no relief. He has been using Motrin and icy hot with no relief. Denies any other symptoms. MD Complaint: back pain -: week(s) (1) Similar Symptoms Previously: Yes Radiation: none Severity scale (1-10): 10 Quality: sharp Consistency: constant Improves With: none Worsens With: movement, walking, other (palpation) Associated Symptoms: denies other symptoms Treatments Prior to Arrival: NSAIDS, other (icy hot) - Related Data Home Medications Medication Instructions Recorded Confirmed Aspirin [Adult Low Dose Aspirin EC] 81 mg PO DAILY 06/29/18 05/08/22 Empagliflozin [Jardiance] 25 mg PO DAILY 06/29/18 05/08/22 Finasteride [Proscar] 5 mg PO DAILY 06/29/18 05/08/22 Gabapentin [Neurontin] 300 mg PO TID 06/29/18 05/08/22 Quinapril/Hydrochlorothiazide 1 tab PO DAILY 06/29/18 05/08/22 [Accuretic 20-12.5 mg Tab] INSULIN LISPRO (For Pump) [humaLOG 1 applicate SQ-PUMP CONTINUOUS 10/17/19 05/08/22 (For Pump)] rOPINIRole HCL [Requip] 1 mg PO HS 02/22/21 05/08/22 Atorvastatin [Lipitor] 40 mg PO DAILY 03/24/21 05/08/22 metFORMIN HCL 1,000 mg PO BID 05/08/22 05/08/22 Previous Rx's Medication Instructions Recorded Clopidogrel [Plavix] 75 mg PO DAILY #90 tab 05/05/22 Rivaroxaban [Xarelto] 2.5 mg PO BID #180 tab 05/05/22 Lidocaine 5% Patch [Lidoderm] 1 patch TOPICAL DAILY 14 Days #14 08/16/22 patch Allergies Allergy/AdvReac Type Severity Reaction Status Date / Time No Known Allergies Allergy Verified 08/16/22 09:28 Review of Systems ROS Statement: Those systems with pertinent positive or pertinent negative responses have been documented in the HPI. ROS Other: All systems not noted in ROS Statement are negative. Past Medical History Past Medical History: Diabetes Mellitus, Hyperlipidemia, Hypertension, Vascular Disorder Additional Past Medical History / Comment(s): Insulin Pump. Neuropathy feet. PVD with stents. HX of Sciatic nerve pain. "toes on right foot are red". History of Any Multi-Drug Resistant Organisms: None Reported Past Surgical History: Tonsillectomy Additional Past Surgical History / Comment(s): Bilateral leg bypass surgery, bilateral cataracts, atherectomy & balloon angioplasty right leg(07/2019). Past Anesthesia/Blood Transfusion Reactions: No Reported Reaction Additional Past Anesthesia/Blood Transfusion Reaction / Comment(s): unsure of blood transfusion hx Past Psychological History: No Psychological Hx Reported Smoking Status: Former smoker Past Alcohol Use History: None Reported Past Drug Use History: None Reported - Past Family History Mother Family Medical History: No Reported History Father Family Medical History: Diabetes Mellitus General Exam Limitations: no limitations General appearance: alert, in no apparent distress Head exam: Present: atraumatic Eye exam: Absent: scleral icterus, conjunctival injection Respiratory exam: Present: normal lung sounds bilaterally. Absent: respiratory distress, accessory muscle use Cardiovascular Exam: Present: regular rate GI/Abdominal exam: Present: soft. Absent: rigid Extremities exam: Present: normal capillary refill. Absent: pedal edema Back exam: Present: tenderness (Right paraspinal lumbar sacral). Absent: CVA tenderness (R), CVA tenderness (L), rash noted Neurological exam: Present: alert, oriented X3, normal gait Psychiatric exam: Present: normal affect, normal mood Skin exam: Present: warm, dry, normal color. Absent: cyanosis, diaphoretic, petechiae, pallor Course Vital Signs 08/16/22 09:26 Temperature 98 F Pulse Rate 79 Respiratory 20 Rate Blood Pressure 148/61 O2 Sat by Pulse 97 Oximetry - Reevaluation(s) Reevaluation #1: 08/16/22 10:47 Patient states he is feeling better after Toradol and Norflex. He did get up and take a few steps and states the pain is worsened with ambulation and palpation. Time: 10:47 Medical Decision Making - Medical Decision Making Patient presents with 1 week right-sided low back pain worse to palpation, sharp in nature. Denies any bowel or bladder incontinence. Denies any radiculopathy. Does have a history of sciatica but states this is not the same. Denies any injury. No red flag signs or symptoms. XR of the lumbar spine reviewed by me shows no evidence of acute fracture or dislocation. Left common iliac artery stent noted. Radiologist impression shows mild disc space narrowing L4 through L5 and L5 through S1 with mild to moderate multilevel anterior and lateral spurring. He is able to ambulate with a steady gait. No foot drop. Denies any fevers, no bowel or bladder incontinence. Pain does not radiate down leg. It is worse with palpation. He was given Norflex and Toradol with some relief. He was given and prescribed Lidoderm patches. Directed to do gentle low back exercises and follow up with his primary care doctor this week. Strict return parameters were discussed. Family agreeable to this plan of care. Case discussed with Dr. Fernando Street Clinical Impression: Back pain Disposition: HOME SELF-CARE Condition: Good Instructions (If sedation given, give patient instructions): Acute Low Back Pain (ED), Lower Back Exercises (ED) Additional Instructions: Use Tylenol and Motrin as needed for any pain. You can also use the topical Lidoderm patches as prescribed. Do low back exercises with gentle movements. Follow-up with the primary care doctor this week. Return to the emergency room with any new or concerning symptoms. Prescriptions: Lidocaine 5% Patch [Lidoderm] 1 patch TOPICAL DAILY 14 Days #14 patch Is patient prescribed a controlled substance at d/c from ED?: No Referrals: Suellen Bueno MD [Primary Care Provider] - 1-2 days Time of Disposition: 11:14
--- NOTE | 2022-08-16 10:17 | XR ---
EXAMINATION TYPE: XR lumbar spine 2 or 3V DATE OF EXAM: 08/16/2022 CLINICAL HISTORY: Low back pain. TECHNIQUE: Frontal and lateral images of the lumbar spine are obtained. COMPARISON: None FINDINGS: There are 5 lumbar type vertebral bodies identified. The lumbar spine shows somewhat stra ightened alignment without evidence of acute fracture or dislocation. Vertebral body heights are with in normal limits. Mild disc space narrowing L4-L5 and L5-S1 levels. Mild to moderate multilevel ante rior and lateral spurring. Severe overlying arterial vascular calcification with stent graft in the l eft common iliac artery noted. IMPRESSION: As above.
[2022-08-16] MEDS ORDERED: LIDOCAINE 5% PATCH TOPICAL SCH (11:00)
== END 2022-08-16 11:25 | disposition home or self-care (01) ==
LOC: EC 09:21
DX: M54.50 Low back pain, unspecified (principal); E11.9 Type 2 diabetes mellitus without complications; E78.5 Hyperlipidemia, unspecified; I10 Essential (primary) hypertension; Z87.891 Personal history of nicotine dependence; Z79.4 Long term (current) use of insulin; Z79.82 Long term (current) use of aspirin; Z79.899 Other long term (current) drug therapy
CPT/HCPCS: 72100; 99283; 96372 ×2; J2360; J1885

== ENCOUNTER → 2023-04-07 | Outpatient (CLI) | payer MEDICARE, BC ==
--- NOTE | 2023-04-07 20:07 | US ---
EXAMINATION TYPE: US thyroid st tissue head/neck DATE OF EXAM: 04/07/2023 COMPARISON: NONE CLINICAL INDICATION: Male, 77 years old with history of E04.1 NONTOXIC SINGLE THYROID NODULE; f/u nod ule GLAND SIZE: Right Lobe: 4.7x2.6x2.7 cm Overall Parenchyma: homogenous Left Lobe: 4.6x1.6x2.2 cm Overall Parenchyma: homogeneous Isthmus Thickness: 0.6 cm NODULES RIGHT: # of nodules measured on right: 1 1. 4.4 X 3.5 x 2.4 cm, mid mid, Prior size: 4.0 x 2.4 x 3.1 cm TIRADS Score: 4 TIRADS Category 4: Moderately Suspicious Composition: Solid or almost completely solid (2 points). Echogenicity: Hyperechoic or isoechoic (1 point). Shape: Wider than tall (0 points). Margin: Smooth (0 points). Echogenic foci: Macrocalcifications (1 point) Recommendation: If >1.5cm: FNA; If >1cm: Follow up at 1,2, 3,5 years LEFT: # of nodules measured on left: 2 1. 0.4 X 0.4 x 0.3 cm, lower lateral, Prior size: 0.4 x 0.4 x 0.2 cm TIRADS Score: 0 TIRADS Category 1: Benign Composition: Cystic or almost completely cystic (0 points). Recommendation: No FNA 2. 0.3 X 0.3 x 0.4 cm, lower lateral, TIRADS Score: 4 TIRADS Category 4: Moderately Suspicious Composition: Solid or almost completely solid (2 points). Echogenicity: Hypoechoic (2 points). Shape: Wider than tall (0 points). Margin: Smooth (0 points). Echogenic foci: None or large comet-tail artifacts (0 points) Recommendation: If >1.5cm: FNA; If >1cm: Follow up at 1,2, 3,5 years ISTHMUS: # of nodules measured in the isthmus: 0 Bilateral neck scanned, no evidence of lymphadenopathy, plaque noted as an incidental finding within bilateral carotid arteries. IMPRESSION: Right thyroid nodule that meet criteria for tissue sampling if not already performed.
== END | disposition home or self-care (01) ==
LOC: RADUSWWP 16:05
PROVIDERS: ATTEND Surgery Plastic and Reconstructive Surgery
DX: E04.1 Nontoxic single thyroid nodule (principal)
CPT/HCPCS: 76536

== ENCOUNTER 2023-10-27 18:11 | Emergency (ER) | payer MEDICARE, BC ==
--- NOTE | 2023-10-27 18:48 | ED ---
Skin/Abscess/FB HPI - General Chief complaint: Skin/Abscess/Foreign Body Stated complaint: Abd Brusing after Insulin Shot Time Seen by Provider: 10/27/23 18:34 Source: patient, RN notes reviewed, old records reviewed Mode of arrival: ambulatory Limitations: no limitations - History of Present Illness Initial comments: This is a 78-year-old male to the ER for evaluation of significant abdominal wall bruising. Patient states he has pain to the area and tenderness, concern for the amount of bruising that he is having and spreading. No trauma no compl aints no blood in his urine no blood in the stool MD complaint: rash, other (Cuauhtemoc wall bruising and discoloration) -: days(s) Tetanus Up to Date: yes Severity: mild Severity scale (1-10): 2 Quality: stabbing Consistency: constant Improves with: none Worsens with: none Context: none Associated symptoms: denies other symptoms Treatments Prior to Arrival: none - Related Data Home Medications Medication Instructions Recorded Confirmed Aspirin [Adult Low Dose Aspirin EC] 81 mg PO DAILY 06/29/18 04/20/23 Empagliflozin [Jardiance] 25 mg PO DAILY 06/29/18 04/20/23 Finasteride [Proscar] 5 mg PO DAILY 06/29/18 04/20/23 Atorvastatin [Lipitor] 40 mg PO DAILY 03/24/21 04/20/23 metFORMIN HCL 1,000 mg PO BID 05/08/22 04/20/23 Gabapentin [Neurontin] 400 mg PO TID 11/11/22 04/20/23 Lisinopril-Hctz 20-12.5 mg 1 tab PO DAILY 11/11/22 04/20/23 [Zestoretic 20-12.5] amLODIPine [Norvasc] 5 mg PO DAILY 11/11/22 04/20/23 Insulin Glargine/Lixisenatide 0 units SQ QAM 04/18/23 04/20/23 [Soliqua 100 Unit-33 Mcg/ml Pen] Previous Rx's Medication Instructions Recorded Rivaroxaban [Xarelto] 2.5 mg PO BID #180 tab 05/05/22 Omeprazole [PriLOSEC] 40 mg PO DAILY #14 cap 04/20/23 Sucralfate [Carafate] 1 gm PO BID #30 tablet 04/20/23 Tamsulosin [Flomax] 0.4 mg PO DAILY #14 cap 06/26/23 Cephalexin [Keflex] 500 mg PO Q6HR #28 cap 06/30/23 Allergies Allergy/AdvReac Type Severity Reaction Status Date / Time No Known Allergies Allergy Verified 06/30/23 18:33 Review of Systems ROS Statement: Those systems with pertinent positive or pertinent negative responses have been documented in the HPI. ROS Other: All systems not noted in ROS Statement are negative. Past Medical History Past Medical History: Cancer, Diabetes Mellitus, Hearing Disorder / Deafness, Hyperlipidemia, Hypertension, Neurologic Disorder, Vascular Disorder Additional Past Medical History / Comment(s): Hx skin cancer on head. Neuropathy bilateral feet. PVD. Hx of sciatic nerve pain. Slightly hard of hearing. History of Any Multi-Drug Resistant Organisms: None Reported Past Surgical History: Tonsillectomy Additional Past Surgical History / Comment(s): Bilateral cataract surgery, atherectomy and balloon angioplasty right leg(07/2019). Past Anesthesia/Blood Transfusion Reactions: No Reported Reaction Additional Past Anesthesia/Blood Transfusion Reaction / Comment(s): unsure of blood transfusion hx Past Psychological History: Depression Smoking Status: Former smoker Past Alcohol Use History: None Reported Past Drug Use History: None Reported - Past Family History Mother Family Medical History: No Reported History Father Family Medical History: Diabetes Mellitus Daughter(s) Family Medical History: Cancer General Exam Limitations: no limitations General appearance: alert, in no apparent distress Head exam: Present: atraumatic, normocephalic, normal inspection Eye exam: Present: normal appearance, PERRL, EOMI. Absent: scleral icterus, conjunctival injection, periorbital swelling ENT exam: Present: normal exam, mucous membranes moist Neck exam: Present: normal inspection. Absent: tenderness, meningismus, lymphadenopathy Respiratory exam: Present: normal lung sounds bilaterally. Absent: respiratory distress, wheezes, rales, rhonchi, stridor Cardiovascular Exam: Present: regular rate, normal rhythm, normal heart sounds. Absent: systolic murmur, diastolic murmur, rubs, gallop, clicks GI/Abdominal exam: Present: soft, normal bowel sounds, other (Large abdominal wall bruise). Absent: distended, tenderness, guarding, rebound, rigid Extremities exam: Present: normal inspection, full ROM, normal capillary refill. Absent: tenderness, pedal edema, joint swelling, calf tenderness Back exam: Present: normal inspection Neurological exam: Present: alert, oriented X3, CN II-XII intact Psychiatric exam: Present: normal affect, normal mood Skin exam: Present: warm, dry, intact, normal color. Absent: rash Course Vital Signs 10/27/23 10/27/23 18:28 19:48 Temperature 97.9 F 98.0 F Pulse Rate 75 74 Respiratory 18 18 Rate Blood Pressure 160/73 143/66 O2 Sat by Pulse 98 98 Oximetry - Reevaluation(s) Reevaluation #1: Medical records reviewed Reevaluation #2: Patient symptoms unchanged Reevaluation #3: Patient informed of results questions answered Reevaluation #4: Was pt. sent in by a medical professional or institution (REGINALDO Ambrosio, ADMINISTRATION INTERN, urgent care, hospital, or correction...) When possible be specific @ -no Did you speak to anyone other than the patient for history (EMS, parent, family, police, friend...)? What history was obtained from this source @ -no Did you review nursing and triage notes (agree or disagree)? Why? @ -agree Are old charts reviewed (outside hosp., previous admission, EMS record, old EKG, old radiological studies, urgent care reports/EKG's, correction records)? Report findings @ -yes Differential Diagnosis (chest pain, altered mental status, abdominal pain women, abdominal pain men, vaginal bleeding, weakness, fever, dyspnea, syncope, headache, dizziness, GI bleed, back pain, seizure, CVA, palpatations, mental health, musculoskeletal)? @ -prior EKG interpreted by me (3pts min.). @ -no X-rays interpreted by me (1pt min.). @ -no CT interpreted by me (1pt min.). @ -yes negative for acute disease U/S interpreted by me (1pt. min.). @ -no What testing was considered but not performed or refused? (CT, X-rays, U/S, labs)? Why? @ -none What meds were considered but not given or refused? Why? @ -none Did you discuss the management of the patient with other professionals (professionals i.e. REGINALDO Ambrosio, ADMINISTRATION INTERN, lab, RT, psych nurse, social work supervisor, accounts payable associate, teacher, hazard mitigation officer, business case analyst)? Give summary @ -no Was smoking cessation discussed for >3mins.? @ -no Was critical care preformed (if so, how long)? @ -no Were there social determinants of health that impacted care today? How? (Homelessness, low income, unemployed, alcoholism, drug addiction, transportation, low edu. Level, literacy, decrease access to med. care, intermediate, rehab)? @ -none Was there de-escalation of care discussed even if they declined (Discuss DNR or withdrawal of care, Hospice)? DNR status @ -no What co-morbidities impacted this encounter? (DM, HTN, Smoking, COPD, CAD, Cancer, CVA, ARF, Chemo, Hep., AIDS, mental health diagnosis, sleep apnea, morbid obesity)? @ -none Was patient admitted / discharged? Hospital course, mention meds given and route, prescriptions, significant lab abnormalities, going to OR and other pertinent info. @ -78 male to ER for evaluation of abdominal wall bruising, concern for persistent bleeding or hematoma. Patient has normal testing here in the ER and can be discharged home Discharge Undiagnosed new problem with uncertain prognosis? @ -no Drug Therapy requiring intensive monitoring for toxicity (Heparin, Nitro, Insulin, Cardizem)? @ -no Were any procedures done? @ -no Diagnosis/symptom? @ -Cuauhtemoc wall improved Acute, or Chronic, or Acute on Chronic? @ -Acute Uncomplicated (without systemic symptoms) or Complicated (systemic symptoms)? @ -Complicated Side effects of treatment? @ -no Exacerbation, Progression, or Severe Exacerbation? @ -exacerbation Poses a threat to life or bodily function? How? (Chest pain, USA, NC, pneumonia, PE, COPD, DKA, ARF, appy, cholecystitis, CVA, Diverticulitis, Homicidal, Suicidal, threat to staff... and all critical care pts) @ -no Reevaluation #5: Differential Abdominal Pain Men: Appendicitis, cholecystitis, diverticulosis, ischemic bowel, pancreatitis, hepatitis, UTI, gastroenteritis, AAA, incarcerated hernia, bowel obstruction, constipation, inflammatory bowel, hepatitis, peptic ulcer disease, splenic infarction, perforated viscus, testicular torsion, this is not meant to be an all-inclusive list Medical Decision Making - Medical Decision Making 78 male to ER for evaluation of abdominal wall bruising, concern for persistent bleeding or hematoma. Patient has normal testing here in the ER and can be discharged home - Radiology Data Radiology results: report reviewed (CT abdomen pelvis is negative for acute disease), image reviewed Disposition Clinical Impression: Hematoma Narrative: Abdominal wall bruising and hematoma Disposition: HOME SELF-CARE Condition: Good Instructions (If sedation given, give patient instructions): Hematoma (ED) Is patient prescribed a controlled substance at d/c from ED?: No Referrals: Suellen Bueno MD [Primary Care Provider] - 1-2 days Time of Disposition: 19:10
[2023-10-27 19:14] VITALS: RESP 18
--- NOTE | 2023-10-27 19:37 | CT ---
EXAMINATION TYPE: CT abdomen pelvis wo con DATE OF EXAM: 10/27/2023 COMPARISON: 03/10/2022 INDICATION: Bruise lower left abdomen after insulin injection DLP: 702.8 mGycm, Automated exposure control for dose reduction was used. CONTRAST: 0 mL of Isovue 300. Study performed without Oral Contrast TECHNIQUE: Axial images were obtained from above the diaphragm to the pubic rami in the axial plane a t 5 mm thick sections. Reconstructed images are reviewed on the computer in the coronal plane. FINDINGS: Limited CT sections are obtained the lung bases. The lung bases are clear. CT ABDOMEN: Liver: Normal Spleen: Normal Pancreas: Normal Adrenal glands: The adrenal glands are normal. Gallbladder: Small gallstone is present. Kidneys: No masses are evident. No hydronephrosis is present. No cysts are present. Punctate nonob structing renal stone is in the anterior left kidney. Punctate nonobstructing right renal stone is at the anterior-inferior right kidney. Aorta: Vascular calcification is within the aorta. Inferior vena cava: Normal. CT PELVIS: There is a 1.6 x 0.8 cm slightly hyperdense collection with surrounding inflammatory portillo e. Small hematoma from recent injection could be considered. Femorofemoral bypass is evident. Loops of bowel within the abdomen and pelvis are normal. There are loops of bowel which are incom pletely distended or lack oral contrast limiting their evaluation. Appendix: Normal as visualized. Urinary bladder: Distended. Consider evaluation for urinary retention. Genitourinary structures: Prostate is prominent. Osseous structures: No suspicious lytic or sclerotic lesions. L5-S1 disc space changes are present. IMPRESSION: 1. No acute intra-abdominal process. 2. Nonobstructing punctate renal stones bilateral kidneys. 3. Consider clinical evaluation for urinary retention. Large prostate is evident. 4. Small hematoma in the anterior left pelvic subcutaneous tissues.
[2023-10-27 20:00] VITALS: BP 143/66; PULSE 74; TEMP 98
== END 2023-10-27 19:55 | disposition home or self-care (01) ==
LOC: SUPCPDRO 18:11 → EC 18:11
DX: S30.1XXA Contusion of abdominal wall, initial encounter (principal); E11.40 Type 2 diabetes mellitus with diabetic neuropathy, unspecified; E11.51 Type 2 diabetes mellitus with diabetic peripheral angiopathy without gangrene; I10 Essential (primary) hypertension; E78.5 Hyperlipidemia, unspecified; F32.A Depression, unspecified; Z79.82 Long term (current) use of aspirin; Z79.84 Long term (current) use of oral hypoglycemic drugs; Z79.4 Long term (current) use of insulin; Z79.899 Other long term (current) drug therapy; Z98.41 Cataract extraction status, right eye; Z98.42 Cataract extraction status, left eye; Z87.891 Personal history of nicotine dependence; X58.XXXA Exposure to other specified factors, initial encounter
CPT/HCPCS: 74176; 99284

== ENCOUNTER 2025-04-11 14:34 | Emergency (ER) | payer MEDICARE, BC ==
[2025-04-11 14:49] VITALS: PULSE 76
--- NOTE | 2025-04-11 16:47 | XR ---
EXAMINATION TYPE: XR wrist complete RT DATE OF EXAM: 04/11/2025 4:43 PM INDICATION: Patient age:Male; 79 years old; Reason for study: right wrist pain; PHH. pain COMPARISON: None TECHNIQUE: 4 views of the right wrist. Frontal, navicular, lateral, and oblique. FINDINGS: No acute osseous pathology, joint dislocation, or joint effusion. Mild degenerative change s of the first MCP joint. Remote well-corticated fracture versus ossicle involving the ulnar styloid process. No evidence of any soft tissue swelling is seen. Vascular sclerosis. IMPRESSION: No acute osseous pathology. [facility], , 04/11/2025 4:44 PM
--- NOTE | 2025-04-11 17:17 | ED ---
Extremity Problem HPI - General Chief complaint: Extremity Problem,Nontraumatic Stated complaint: R Arm issue Time Seen by Provider: 04/11/25 16:30 Source: patient, RN notes reviewed Mode of arrival: ambulatory Limitations: no limitations - History of Present Illness Initial comments: 79-year-old male presenting for right wrist pain x 1 week. Denies injury or trauma. States pain is worse at night and with movement. Describes a sharp, shooting pain that extends from the right wrist up the forearm. Denies redness or swelling. He does take Eliquis and is on insulin for type 2 diabetes. - Related Data Home Medications Medication Instructions Recorded Confirmed Aspirin [Adult Low Dose Aspirin EC] 81 mg PO DAILY 06/29/18 04/20/23 Empagliflozin [Jardiance] 25 mg PO DAILY 06/29/18 04/20/23 Finasteride [Proscar] 5 mg PO DAILY 06/29/18 04/20/23 Atorvastatin [Lipitor] 40 mg PO DAILY 03/24/21 04/20/23 metFORMIN HCL 1,000 mg PO BID 05/08/22 04/20/23 Gabapentin [Neurontin] 400 mg PO TID 11/11/22 04/20/23 Lisinopril-Hctz 20-12.5 mg 1 tab PO DAILY 11/11/22 04/20/23 [Zestoretic 20-12.5] amLODIPine [Norvasc] 5 mg PO DAILY 11/11/22 04/20/23 Insulin Glargine/Lixisenatide 0 units SQ QAM 04/18/23 04/20/23 [Soliqua 100 Unit-33 Mcg/ml Pen] Previous Rx's Medication Instructions Recorded Rivaroxaban [Xarelto] 2.5 mg PO BID #180 tab 05/05/22 Omeprazole [PriLOSEC] 40 mg PO DAILY #14 cap 04/20/23 Sucralfate [Carafate] 1 gm PO BID #30 tablet 04/20/23 Tamsulosin [Flomax] 0.4 mg PO DAILY #14 cap 06/26/23 Cephalexin [Keflex] 500 mg PO Q6HR #28 cap 06/30/23 Allergies Allergy/AdvReac Type Severity Reaction Status Date / Time No Known Allergies Allergy Verified 04/11/25 14:49 Review of Systems ROS Statement: Those systems with pertinent positive or pertinent negative responses have been documented in the HPI. ROS Other: All systems not noted in ROS Statement are negative. Past Medical History Past Medical History: Cancer, Diabetes Mellitus, Hearing Disorder / Deafness, Hyperlipidemia, Hypertension, Neurologic Disorder, Vascular Disorder Additional Past Medical History / Comment(s): Hx skin cancer on head. Neuropathy bilateral feet. PVD. Hx of sciatic nerve pain. Slightly hard of hearing. History of Any Multi-Drug Resistant Organisms: None Reported Past Surgical History: Tonsillectomy Additional Past Surgical History / Comment(s): Bilateral cataract surgery, atherectomy and balloon angioplasty right leg(07/2019). Past Anesthesia/Blood Transfusion Reactions: No Reported Reaction Additional Past Anesthesia/Blood Transfusion Reaction / Comment(s): unsure of blood transfusion hx Past Psychological History: Depression Smoking Status: Former smoker Past Alcohol Use History: None Reported Past Drug Use History: None Reported - Past Family History Mother Family Medical History: No Reported History Father Family Medical History: Diabetes Mellitus Daughter(s) Family Medical History: Cancer General Exam Limitations: no limitations General appearance: alert, in no apparent distress Head exam: Present: atraumatic, normocephalic, normal inspection Eye exam: Present: normal appearance, PERRL, EOMI. Absent: scleral icterus, conjunctival injection, periorbital swelling ENT exam: Present: normal exam, mucous membranes moist Right Elbow exam: Present: normal inspection, full ROM. Absent: tenderness, swelling Forearm Wrist exam: Present: normal inspection, full ROM, tenderness (Diffuse tenderness to palpation over the dorsal wrist). Absent: swelling Hand Wrist exam: Present: normal inspection, full ROM, tenderness. Absent: swelling, abrasion Vascular: Present: normal capillary refill, radial pulse. Absent: vascular compromise Neurological exam: Present: alert, oriented X3 Psychiatric exam: Present: normal affect, normal mood Skin exam: Present: warm, dry, intact, normal color. Absent: rash Course Vital Signs 04/11/25 04/11/25 14:45 17:27 Temperature 97.6 F 97.9 F Pulse Rate 76 76 Respiratory 20 18 Rate Blood Pressure 155/71 148/72 O2 Sat by Pulse 99 99 Oximetry Medical Decision Making - Medical Decision Making Was pt. sent in by a medical professional or institution (, PA, PEOPLESOFT ANALYST, urgent care, hospital, or custodial...) When possible be specific @ -No Did you speak to anyone other than the patient for history (EMS, parent, family, police, friend...)? What history was obtained from this source @ -No Did you review nursing and triage notes (agree or disagree)? Why? @ -I reviewed and agree with nursing and triage notes Were old charts reviewed (outside hosp., previous admission, EMS record, old EKG, old radiological studies, urgent care reports/EKG's, custodial records)? Report findings @ -No old charts were reviewed Differential Diagnosis (chest pain, altered mental status, abdominal pain women, abdominal pain men, vaginal bleeding, weakness, fever, dyspnea, syncope, headache, dizziness, GI bleed, back pain, seizure, CVA, palpatations, mental health, musculoskeletal)? @ -Differential Musculoskeletal Muscular strain, contusion, ligament sprain, fracture, arthritis, septic arthritis, bursitis, cellulitis, muscle spasm, nerve compression, DVT, arterial occlusion, herpes zoster, electrolyte abnormality, tumor.... This is not meant to be in all inclusive list EKG interpreted by me (3pts min.). @ -None X-rays interpreted by me (1pt min.). @ -X-ray right wrist reveals no acute process CT interpreted by me (1pt min.). @ -None done U/S interpreted by me (1pt. min.). @ -None done What testing was considered but not performed or refused? (CT, X-rays, U/S, labs)? Why? @ -None What meds were considered but not given or refused? Why? @ -None Did you discuss the management of the patient with other professionals (professionals i.e. , PA, PEOPLESOFT ANALYST, lab, RT, psych nurse, social media manager, cob sawyer, teacher, bank officer, case finisher)? Give summary @ -No Was smoking cessation discussed for >3mins.? @ -No Was critical care preformed (if so, how long)? @ -No Were there social determinants of health that impacted care today? How? (Homelessness, low income, unemployed, alcoholism, drug addiction, transportation, low edu. Level, literacy, decrease access to med. care, detention, rehab)? @ -No Was there de-escalation of care discussed even if they declined (Discuss DNR or withdrawal of care, Hospice)? DNR status @ -No What co-morbidities impacted this encounter? (DM, HTN, Smoking, COPD, CAD, Cancer, CVA, ARF, Chemo, Hep., AIDS, mental health diagnosis, sleep apnea, morbid obesity)? @ -None Was patient admitted / discharged? Hospital course, mention meds given and route, prescriptions, significant lab abnormalities, going to OR and other pertinent info. @ -Discharge. 79-year-old male presenting for nontraumatic right wrist pain. Neurovascularly intact. No sign of bacterial infection. X-ray right wrist reveals no acute process. Considered steroids and anti-inflammatories however given given the fact that patient is on insulin for type 2 diabetes and blood thinners, advised patient to treat pain with Tylenol. Advised orthopedic follow-up. Appropriate return precautions and supportive care discussed. Case was discussed with my ED attending Dr. Kelsey Undiagnosed new problem with uncertain prognosis? @ -No Drug Therapy requiring intensive monitoring for toxicity (Heparin, Nitro, Insulin, Cardizem)? @ -No Were any procedures done? @ -No Diagnosis/symptom? @ -Right wrist pain Acute, or Chronic, or Acute on Chronic? @ -Acute Uncomplicated (without systemic symptoms) or Complicated (systemic symptoms)? @ -Uncomplicated Side effects of treatment? @ -No Exacerbation, Progression, or Severe Exacerbation? @ -No Poses a threat to life or bodily function? How? (Chest pain, USA, PA, pneumonia, PE, COPD, DKA, ARF, appy, cholecystitis, CVA, Diverticulitis, Homicidal, Suicidal, threat to staff... and all critical care pts) @ -No Disposition Clinical Impression: Right wrist pain Disposition: HOME SELF-CARE Condition: Stable Additional Instructions: Follow-up with orthopedic doctor as discussed. Continue Tylenol for the pain. Please return to the Emergency Department if symptoms worsen or any other concerns. Is patient prescribed a controlled substance at d/c from ED?: No Referrals: Suellen Bueno MD [Primary Care Provider] - 1-2 days Addison Lange MD [Medical Doctor] - 1-2 days Time of Disposition: 17:16
[2025-04-11 17:28] VITALS: BP 148/72; RESP 18; TEMP 97.9
== END 2025-04-11 17:28 | disposition home or self-care (01) ==
LOC: EC 14:34
DX: M25.531 Pain in right wrist (principal); Z87.891 Personal history of nicotine dependence
CPT/HCPCS: 99283

== ENCOUNTER → 2025-04-21 | Outpatient (CLI) | payer MEDICARE, BC ==
--- NOTE | 2025-04-22 16:01 | MR ---
MR wrist RT wo/w con DATE OF EXAM: 04/21/2025 9:05 PM COMPARISON: Right wrist radiographs 04/11/2025. CLINICAL INDICATION: Male, 79 years old with history of M65.231,R22.31,M25.531,M18.11; PHH, RT wrist pain and limited movement x3 weeks TECHNIQUE: Multiplanar, multiecho imaging was performed of the right wrist, including fluid sensitive and pre and postcontrast T1-weighted sequences; IV contrast was administered to potentially improve disease detection. FINDINGS: Extensor tendons: Intact. No tenosynovitis. Flexor tendons: Intact. No tenosynovitis. Triangular fibrocartilage complex: Thickening and signal attenuation of the peripheral attachments ma y be degenerative versus sequela of prior injury. Tear of the central disc with trace fluid in the DR UJ. Small ossicle at the ulnar styloid, presumed sclerotic prior injury. Scapholunate ligament: Thickening and signal attenuation likely on a degenerative basis. Lunotriquetral ligament: Thickening and signal attenuation likely on a degenerative basis. Carpal bones: Diffuse edema-like marrow signal throughout the lunate. Focus of T1/T2 hypointensity th e volar aspect, favored related to dystrophic calcification detailed below versus enostosis. Otherwis e no T1 abnormality to suggest avascular necrosis of the lunate. No marrow replacing process. Cartilage: High-grade cartilage defect at the ulnar-lunato articulation with punctate subchondral cys t in the lunate. Ulnar positive variance noted, better appreciated radiographically. Mild degenerativ e change of the first CMC joints. Small subcortical cysts versus intraosseous ganglion of the distal scaphoid pole, volar aspect. Carpal tunnel: Preserved. Other: Ill-defined somewhat lobular T1/T2 hypointense nonenhancing mineralization overlies the volar aspect of the lunate, which correlates with mineralizations better appreciated on the radiograph 04/11. Intramuscular edema and mild enhancement of the pronator quadratus with mild fatty replacement , nonspecific. . IMPRESSION: 1. Diffuse edema-like marrow signal throughout the lunate without discrete evidence of fracture or A VN. Favored related to ulnar impaction in the context of positive ulnar variance and ulnar-lunato pre dominant degenerative change. 2. Tear of the central disc of the TFC with degeneration of the peripheral attachments. Trace fluid in the DRUJ. 3. Nonspecific dystrophic mineralization at the volar aspect of the ulnar-lunate articulation, alonso r appreciated radiographically. Possibly sequelae of prior trauma versus calcific periarthritis. [facility], Workstation: [id number], 04/22/2025 3:59 PM
== END | disposition home or self-care (01) ==
LOC: RADMRIMAIN 18:29
PROVIDERS: ATTEND Orthopaedic Surgery
DX: M18.11 Unilateral primary osteoarthritis of first carpometacarpal joint, right hand (principal); S63.591A Other specified sprain of right wrist, initial encounter; M65.231 Calcific tendinitis, right forearm
CPT/HCPCS: 73223; A9585